=== PATIENT | female | born 1955 | race Caucasian/White ===

== ENCOUNTER → 2017-03-04 | Outpatient (CLI) | payer OTHER, MEDICARE ==
[~2017-03-04] MED LIST: ASPEC81 PO; ATEN50TA8 PO; ATOR-24 PO; B-COTAB18 PO; CLOP1TAB5 PO; ERGO1CAP35 PO; ERGO500011 PO; FOLI1TAB7 PO; HYDR-3983 PO; HYDR-4717 PO; LISI40TA PO; LORA-741 PO; LSX20 PO; MELATAB2 PO; NEBI20TA2 PO; PROM1SUP19 PR; PROM25TA9 PO; TIZA2CAP PO; TOPI50TA24 PO; VERA120C2 PEG; VERA120C2 PO; VERA120T65 PO; VERA240C2 PO; VERA240T21 PO
[2017-03-04 09:42] LABS: URINE APPEARANCE CLEAR (CLEAR); URINE BILIRUBIN NEG (NEG); URINE COLOR YELLOW; URINE NITRITE NEG (NEG); UROBILINOGEN NEG (NEG); ZZUR CULT IF INDIC CLEAN CATCH NO
[2017-03-04 09:43] LABS: MANUAL MICROSCOPIC REQUIRED? NO; REVIEW REQ? NO
== END | disposition home or self-care (01) ==
LOC: C.LAB 08:13
PROVIDERS: ATTEND Internal Medicine
DX: I10 Essential (primary) hypertension (principal); Z11.59 Encounter for screening for other viral diseases; E55.9 Vitamin D deficiency, unspecified

== ENCOUNTER → 2017-04-25 | Outpatient (CLI) | payer OTHER, MEDICARE ==
--- NOTE | 2017-04-25 13:55 | MAMMOGRAPHY REPORT ---
BILATERAL DIGITAL SCREENING MAMMOGRAM WITH CAD: 04/25/2017 CLINICAL HISTORY: Routine screening. TECHNIQUE: Current study was also evaluated with a Computer Aided Detection (CAD) system. Bilateral CC and MLO views were obtained. COMPARISON: Comparison is made to exams dated: 07/25/2015 mammogram, 10/05/2013 mammogram, 01/02/2011 m ammogram, 08/14/2005 mammogram, and 11/03/2003 mammogram - [facility]. BREAST COMPOSITION: There are scattered areas of fibroglandular density in both breasts. FINDINGS: No suspicious masses, calcifications, or areas of architectural distortion are noted in ei ther breast. There has been no significant interval change compared to prior exams. Bilateral benign -appearing calcifications are not significantly changed. Small benign appearing mass in the left 12: 00 breast is stable compared to prior exams. IMPRESSION: ACR BI-RADS CATEGORY 2: BENIGN There is no mammographic evidence of malignancy. A 1 year screening mammogram is recommended. The pa tient will receive written notification of the results. Approximately 10% of breast cancers are not detected with mammography. A negative mammographic report should not delay biopsy if a clinically suggestive mass is present. Moriah Burnham M.D. ah/:04/25/2017 11:02:09 Service Tester: Crow CANO(R)(M), [facility] letter sent: Normal 1/2 BI-RADS Code: ACR BI-RADS Category 2: Benign
== END | disposition home or self-care (01) ==
LOC: C.MAMM 09:21
PROVIDERS: ATTEND Obstetrics & Gynecology
DX: Z12.31 Encounter for screening mammogram for malignant neoplasm of breast (principal)

== ENCOUNTER → 2017-05-01 | Outpatient (CLI) | payer OTHER, MEDICARE ==
[~2017-05-01] MED LIST changes: +GADAVIST IV PRN
--- NOTE | 2017-05-01 09:55 | DIAGNOSTIC IMAGING REPORT ---
MRA ABDOMEN COMBO CLINICAL HISTORY: I65.23,I70.1,I77.1 renal artery stenosis. COMPARISON STUDY: No previous studies for comparison. FINDINGS: Imaging was performed before and after the administration of 8 cc of intravenous Gadavist. Angiographic sequence was obtained. MIP imaging was performed. There is a 19 mm upper pole left renal cyst. The right kidney is atrophic measuring 16 mm in length. The left kidney measures 106 mm in length. There is diminished right renal enhancement consistent with renal artery stenosis. There are advanced atheromatous changes present within the abdominal aorta. There is a 75% stenosis involving the proximal right common iliac artery. The right renal artery is not visualized, and is likely severely stenotic or occluded. There is a suspected occlusion of the superior mesenteric artery at its origin, with distal reconstitution. There are atheromatous changes present within the main left renal artery, but there is no evidence of hemodynamic significant stenosis. There is a suspected stenosis of accessory lower pole left renal artery branch. The degree of stenosis is difficult to quantitate. IMPRESSION: 1. Severe atheromatous changes within the abdominal aorta with multifocal areas of irregular narrowing and plaque formation 2. 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 Nonvisualization the right renal artery consistent with a severely stenotic or occluded vessel. The right kidney is atrophic with diminished enhancement 4. Atheromatous changes within the main left renal artery but no evidence of hemodynamic significant stenosis. Suspected stenosis of and accessory lower pole left renal artery branch 5. 75% stenosis of the right common iliac artery Electronically signed by: Dom Luther M.D. 05/01/2017 9:54 AM Dictated Date/Time: 05/01/2017 9:40 AM
== END | disposition home or self-care (01) ==
LOC: C.MRIBC 07:54
PROVIDERS: ATTEND Physician Assistant
DX: I65.23 Occlusion and stenosis of bilateral carotid arteries (principal); I70.1 Atherosclerosis of renal artery; I77.1 Stricture of artery

== ENCOUNTER → 2017-05-12 | Outpatient (CLI) | payer OTHER, MEDICARE ==
[~2017-05-12] MED LIST changes: -GADAVIST IV PRN
[2017-05-12 17:35] LABS: URINE APPEARANCE CLEAR (CLEAR); URINE BILIRUBIN NEG (NEG); URINE COLOR YELLOW; URINE NITRITE NEG (NEG); URINE SPECIFIC GRAVITY 1.008 (1.000-1.030); UROBILINOGEN NEG (NEG)
[2017-05-12 17:37] LABS: MANUAL MICROSCOPIC REQUIRED? NO; REVIEW REQ? NO
[2017-05-12 17:43] LABS: BLOOD UREA NITROGEN 13 mg/dl (7-18); BUN/CREATININE RATIO 10.8 (10-20); CALCIUM 9.1 mg/dl (8.5-10.1); CARBON DIOXIDE 18 mmol/L (21-32); CHLORIDE 110 mmol/L (98-107); GLUCOSE 102 mg/dl (70-99); PHOSPHORUS 3.8 mg/dl (2.5-4.9); POTASSIUM 3.7 mmol/L (3.5-5.1); SODIUM 139 mmol/L (136-145)
[2017-05-12 22:34] LABS: URINE PROTIEN/CREAT RATIO 1.6 (0-0.2); URINE TOTAL PROTEIN 32.3 mg/dl (0-11.9)
== END | disposition home or self-care (01) ==
LOC: C.LABBFT 11:43
PROVIDERS: ATTEND Nurse Practitioner
DX: I10 Essential (primary) hypertension (principal); I70.1 Atherosclerosis of renal artery

== ENCOUNTER → 2017-05-24 | Outpatient (CLI) | payer OTHER, MEDICARE ==
[~2017-05-24] MED LIST changes: +ERGO1CAP41 PO; -ERGO500011 PO
[2017-05-24 11:21] LABS: BLOOD UREA NITROGEN 11 mg/dl (7-18); BUN/CREATININE RATIO 7.6 (10-20); CALCIUM 9.3 mg/dl (8.5-10.1); CARBON DIOXIDE 24 mmol/L (21-32); CHLORIDE 90 mmol/L (98-107); GLUCOSE 99 mg/dl (70-99); POTASSIUM 3.5 mmol/L (3.5-5.1); SODIUM 123 mmol/L (136-145)
[2017-05-24 11:23] LABS: URINE PROTIEN/CREAT RATIO 0.6 (0-0.2); URINE TOTAL PROTEIN 12.1 mg/dl (0-11.9)
[2017-05-24 11:32] LABS: PHOSPHORUS 3.1 mg/dl (2.5-4.9); URINE APPEARANCE CLEAR (CLEAR); URINE BILIRUBIN NEG (NEG); URINE COLOR YELLOW; URINE NITRITE NEG (NEG); UROBILINOGEN NEG (NEG)
[2017-05-24 11:36] LABS: MANUAL MICROSCOPIC REQUIRED? NO; REVIEW REQ? NO
[2017-05-28 11:35] LABS: ALBUMIN 4.2 G/DL (3.8-4.8); ALBUMIN % 65.15 %; ALPHA-2-GLOBULIN % 9.94 %; CREATININE UR 27 MG/DL (20-320); GAMMA GLOBULIN 0.5 G/DL (0.8-1.7); GAMMA GLOBULIN % 4.52 %; TOTAL PROTEIN 6.7 G/DL (6.2-8.3)
== END | disposition home or self-care (01) ==
LOC: C.LABBC 08:23
PROVIDERS: ATTEND Internal Medicine Nephrology
DX: I10 Essential (primary) hypertension (principal)

== ENCOUNTER 2017-05-26 14:02 | Inpatient (IN) | payer OTHER, MEDICARE ==
[~2017-05-26] VITALS: Ht 160 cm; Wt 80.8 kg
[~2017-05-26 14:02] MED LIST changes: -ASPEC81 PO; -B-COTAB18 PO; -ERGO1CAP41 PO; -LSX20 PO; -NEBI20TA2 PO; -PROM1SUP19 PR; -VERA120C2 PEG; -VERA120C2 PO; -VERA240C2 PO
[2017-05-26] MEDS ORDERED: SODIUM CHLORIDE 0.9% 1000ML 1,000 ML IV STA (16:34)
--- NOTE | 2017-05-26 16:41 | EMERGENCY ROOM VISIT NOTE ---
History Report prepared by Nola: Barbara Santiago Under the Supervision of: Dr. Nathaniel Santiago D.O. First contact with patient: 16:31 Chief Complaint: HYPERTENSION Stated Complaint: SODIUM LEVEL LOW(123) HIGH BP History of Present Illness The patient is a 61 year old female who presents to the Emergency Room with complaints of constant illness beginning 2 days ago. The patient states that she has been feeling ill for the last week. She reports that she has no function of her right kidney and was taken off of Lisinopril but was recently put back on that and a water pill to control her hypertension. She notes that 2 days ago she had labs done and her sodium was found to be low. After not feeling any better, she went to see her PCP this afternoon and they referred her here to the ED for concern about her sodium. The patient complains of increased thirst, nausea, constant headaches, achiness, irritability, and chills. She denies any confusion and leg swelling. She notes that she has slowed down in drinking fluids after her doctor told her that she was drinking too much with her low sodium. Source of History: patient Onset: 2 days ago Position: other (global) Quality: other (illness) Timing: constant Associated Symptoms: + chills, + headache, + nausea Note: The patient complains of increased thirst, achiness, irritability. She denies any confusion and leg swelling. Review of Systems See HPI for pertinent positives & negatives. A total of 10 systems reviewed and were otherwise negative. Past Medical & Surgical Medical Problems: (1) Hypernatremia (2) Hypertension Family History No pertinent family history stated. Social History Smoking Status: Current Some Day Smoker Alcohol Use: occasionally Drug Use: none Marital Status: Occupation Status: employed Current/Historical Medications Scheduled Atorvastatin (Lipitor), 40 MG PO QPM B-Complex Vitamins (Vitamin B Complex), 1 TAB PO DAILY Clopidogrel Bisulfate (Plavix), 75 MG PO QAM Ergocalciferol (Vitamin D 89969 Unit), 50,000 INTER.UNIT PO WK Folic Acid (Folvite), 1 MG PO QPM Hydralazine Hcl (Apresoline), 100 MG PO QID Lisinopril (Zestril), 40 MG PO QAM Nebivolol Hcl (Bystolic), 40 MG PO DAILY Topiramate (Topamax), 50 MG PO BID Verapamil Hcl (Verapamil Hcl Er), 240 MG PO QAM Verapamil Hcl (Verapamil Hcl Er), 120 MG PEG HS Scheduled PRN Hydrocodone/Acetaminophen 7.5MG/325MG ([place] 7.5MG/325MG), 1 TAB PO BID PRN for Pain Lorazepam (Ativan), 0.5 MG PO BID PRN for Anxiety Tizanidine (Zanaflex), 2 MG PO TID PRN for Muscle Relaxer Allergies Coded Allergies: Bupropion (Verified Allergy, Unknown, UNKNOWN, 09/20/16) Carbamazepine (Unverified Allergy, Unknown, UNKNOWN, 09/20/16) Codeine (Verified Allergy, Unknown, "TIGHTENS MUSCLES UP" PER PT, 09/20/16) Penicillins (Verified Allergy, Unknown, AMPICILLIN, 09/20/16) Sertraline (Unverified Allergy, Unknown, UNKNOWN, 09/20/16) Sulfa Antibiotics (Unverified Allergy, Unknown, HIVES, 09/23/16) Tetracycline (Verified Allergy, Unknown, 09/20/16) Venlafaxine (Unverified Allergy, Unknown, UNKNOWN, 09/20/16) Pork (Verified Adverse Reaction, Intermediate, VOMIT, 09/20/16) Chocolate (Verified Adverse Reaction, Mild, MIGRAINES, 09/20/16) [place] (Verified Adverse Reaction, Unknown, VIOLENT EMESIS, 09/20/16) Physical Exam Vital Signs Date Time Temp Pulse Resp B/P (MAP) Pulse Ox O2 Delivery O2 Flow Rate FiO2 05/26/17 17:52 78 16 225/79 98 Room Air 05/26/17 17:45 49 05/26/17 14:26 36.6 50 18 161/59 94 Room Air Physical Exam GENERAL: Patient is awake, alert, and in no acute distress. Patient is resting comfortably and showing no signs of anxiety EYES: The conjunctivae are clear. The pupils are round and reactive. EARS, NOSE, MOUTH AND THROAT: The nose is without any evidence of any deformity. Mucous membranes are dry tongue is midline NECK: The neck is nontender and supple. RESPIRATORY: Normal respiratory effort is noted there is no evidence of wheezing rhonchi or rales CARDIOVASCULAR: Regular rate and rhythm noted there no murmurs rubs or gallops normal S1 normal S2 GASTROINTESTINAL: The abdomen is soft. Bowel sounds are present in all quadrants. Abdomen is nontender MUSCULOSKELETAL/EXTREMITIES: There is no evidence of gross deformity full range of motion is noted in the hips and shoulders SKIN: There is no obvious evidence of any rash. There are no petechiae, pallor or cyanosis noted. NEUROLOGIC: Patient is awake alert and oriented x3 strength is symmetric patellar reflexes are 2+ bilaterally Medical Decision & Procedures ER Provider Diagnostic Interpretation: Radiology results as stated below per my review and radiologist interpretation: CHEST ONE VIEW PORTABLE FINDINGS: The heart is borderline enlarged. There is mild hilar prominence, likely secondary to prominent central pulmonary arteries. Pulmonary arterial hypertension must be considered.[ There is no failure. There is no focal pulmonary consolidation. No pleural effusions are visualized. IMPRESSION: AP portable study. No evidence of failure. No evidence of focal pulmonary consolidation. Prominent hilar/central pulmonary arteries. Electronically signed by: Dom Luther M.D. 05/26/2017 4:46 PM Dictated Date/Time: 05/26/2017 4:[address] SCAN OF THE BRAIN WITHOUT IV CONTRAST FINDINGS: Brain parenchyma: There is minimal subcortical and periventricular microangiopathic change. The brain parenchyma is otherwise normal in appearance. There is no hemorrhage, mass effect, or evidence of acute territorial ischemia by CT criteria. Humphries-white matter is preserved. No extra-axial fluid collection is seen. Ventricles, sulci, cisterns: Normal in configuration. Intracranial vasculature: There is atherosclerotic calcification of the cavernous carotid and vertebral arteries. Calvarium: Unremarkable. Sinuses and mastoids: The visualized paranasal sinuses are clear. The mastoid air cells are well pneumatized. Orbits: The bony orbits are grossly intact. IMPRESSION: There is no hemorrhage, mass effect, or evidence of acute territorial ischemia by CT criteria. Electronically signed by: Cristi Rojas M.D. 05/26/2017 5:29 PM Dictated Date/Time: 05/26/2017 5:27 PM Laboratory Results 05/26/17 17:08 Red Blood Count 5.08, Mean Corpuscular Volume 87.8, Mean Corpuscular Hemoglobin 30.9, Mean Corpuscular Hemoglobin Concent 35.2, Mean Platelet Volume 10.1, Neutrophils (%) (Auto) 55.3, Lymphocytes (%) (Auto) 30.6, Monocytes (%) (Auto) 11.7, Eosinophils (%) (Auto) 1.6, Basophils (%) (Auto) 0.3, Neutrophils # (Auto ) 3.42, Lymphocytes # (Auto) 1.89, Monocytes # (Auto) 0.72, Eosinophils # (Auto ) 0.10, Basophils # (Auto) 0.02 05/26/17 17:08 Test 05/26/17 00:00 05/26/17 17:08 Urine Color YELLOW Urine Appearance CLEAR (CLEAR) Urine pH 7.0 (4.5-7.5) Urine Specific [place] 1.007 (1.000-1.030) Urine Protein NEG (NEG) Urine Glucose (UA) NEG (NEG) Urine Ketones NEG (NEG) Urine Occult Blood NEG (NEG) Urine Nitrite NEG (NEG) Urine Bilirubin NEG (NEG) Urine Urobilinogen NEG (NEG) Urine Leukocyte Esterase NEG (NEG) Urine Osmolality 84 mOms/kg (500-800) Urine Random Sodium 13 mEq/L White Blood Count 6.18 K/uL (4.8-10.8) Red Blood Count 5.08 M/uL (4.2-5.4) Hemoglobin 15.7 g/dL (12.0-16.0) Hematocrit 44.6 % (37-47) Mean Corpuscular Volume 87.8 fL (80-100) Mean Corpuscular Hemoglobin 30.9 pg (25-34) Mean Corpuscular Hemoglobin Concent 35.2 g/dl (32-36) Platelet Count 267 K/uL (130-400) Mean Platelet Volume 10.1 fL (7.4-10.4) Neutrophils (%) (Auto) 55.3 % Lymphocytes (%) (Auto) 30.6 % Monocytes (%) (Auto) 11.7 % Eosinophils (%) (Auto) 1.6 % Basophils (%) (Auto) 0.3 % Neutrophils # (Auto) 3.42 K/uL (1.4-6.5) Lymphocytes # (Auto) 1.89 K/uL (1.2-3.4) Monocytes # (Auto) 0.72 K/uL (0.11-0.59) Eosinophils # (Auto) 0.10 K/uL (0-0.5) Basophils # (Auto) 0.02 K/uL (0-0.2) RDW Standard Deviation 42.8 fL (36.4-46.3) RDW Coefficient of Variation 13.3 % (11.5-14.5) Immature Granulocyte % (Auto) 0.5 % Immature Granulocyte # (Auto) 0.03 K/uL (0.00-0.02) Prothrombin Time 9.9 SECONDS (9.0-12.0) Prothromb Time International Ratio 0.9 (0.9-1.1) Activated Partial Thromboplast Time 34.7 SECONDS (21.0-31.0) Partial Thromboplastin Ratio 1.3 Anion Gap 10.0 mmol/L (3-11) Est Creatinine Clear Calc Drug Dose 49.8 ml/min Estimated GFR () 56.5 Estimated GFR (Non- 48.7 BUN/Creatinine Ratio 10.3 (10-20) Osmolality 263 mOsm/kg (280-300) Calcium Level 9.0 mg/dl (8.5-10.1) Total Bilirubin 0.3 mg/dl (0.2-1) Direct Bilirubin 0.1 mg/dl (0-0.2) Aspartate Amino Transf (AST/SGOT) 14 U/L (15-37) Alanine Aminotransferase (ALT/SGPT) 26 U/L (12-78) Alkaline Phosphatase 77 U/L (45-117) Total Creatine Kinase 98 U/L (26-192) Creatine Kinase MB 1.0 ng/ml (0.5-3.6) Creatine Kinase MB Ratio 1.0 (0-3.0) Total Protein 6.9 gm/dl (6.4-8.2) Albumin 3.9 gm/dl (3.4-5.0) Lipase 566 U/L (73-393) Laboratory results per my review. Medications Administered Medications (Trade) Dose Ordered Sig/Nimo Route Start Time Stop Time Status Last Admin Dose Admin Sodium Chloride 1,000 ml @ 999 mls/hr Q1H1M STAT IV 05/26/17 16:34 05/26/17 17:34 DC 05/26/17 16:34 999 MLS/HR Ondansetron HCl (Zofran Inj) 4 mg Q6H PRN IV 05/26/17 19:15 06/25/17 19:14 05/26/17 22:26 4 MG Acetaminophen/ Hydrocodone Bitart ([place] 7.5/325 Tab) 1 tab BID PRN PO 05/26/17 19:15 06/09/17 19:14 05/26/17 22:26 1 TAB ECG Indication: other (illness) Rate (beats per minute): 47 Rhythm: sinus bradycardia Findings: no ectopy, other (no ST segment abnormalities) Comparison ECG Date: 07/19/2012 Change: no significant change ED Course 1631: The patient was evaluated in room C3. A complete history and physical examination were performed. 1634: NSS 1,000 ml @ 999 mls/hr IV. 182: I spoke to Dr. Martinez about the patient's case. 183: I discussed the patient's case with Dr. Kwong. The patient will be evaluated for further management. 1847: Upon reevaluation, the patient is doing well. I discussed results and treatment plan with the patient. She verbalizes agreement and understanding. I spoke with [place]. Kwong [place] [facility] The patient will be evaluated for further management and care. Medical Decision Differential diagnosis: Etiologies such as metabolic, infection, hypo/hyperglycemia, electrolyte abnormalities, cardiac sources, intracerebral event, toxicologic, neurologic, as well as others were entertained. Medication Reconciliation: I attest that I have personally reviewed the patient' s current medications list. Blood pressure screening: Patient was found to have an elevated blood pressure and was referred to their primary doctor for recheck and further treatment. The patient is a 61-year-old female who presented to emergency department for evaluation after abnormal laboratory studies were found. The patient is a history of probably see initially which led to hyponatremia. She tried to manage this with medications as well as fluid restriction but on subsequent reevaluation was found have continued hyponatremia as well as hypertension. The patient was sent to the emergency department for further evaluation. The patient was treated with IV fluids in the emergency department. I discussed her case with her primary covering inventory controller. I also discussed her case with the on-call [facility] hospitalist. They've agreed to evaluate the patient in emergency department for further management and disposition. I discussed the patient's laboratory and radiographic studies with her. Consults Time Called: 1824 Consulting Physician: Dr. Martinez Returned Call: [phone] Martinez about the patient's case. Additional Consults: Time Called: 1829 Consulted Physician: Dr. Kwong Returned Call: [phone] Additional Comments: I discussed the patient's case with Dr. Kwong. The patient will be evaluated for further management. Impression Primary Impression: Hyponatremia Additional Impressions: Hypertension Nausea Headache Scribe Attestation The scribe's documentation has been prepared under my direction and personally reviewed by me in its entirety. I confirm that the note above accurately reflects all work, treatment, procedures, and medical decision making performed by me. Departure Information Dispostion Being Evaluated By Hospitalist Referrals Cortes Espinosa M.D. (PCP) Patient Instructions [facility] Problem Qualifiers Additional Impressions: Hypertension Hypertension type: unspecified Qualified Codes: I10 - Essential (primary) hypertension Headache Headache type: unspecified Headache chronicity pattern: acute headache Intractability: not intractable Qualified Codes: R51 - Headache
--- NOTE | 2017-05-26 16:48 | DIAGNOSTIC IMAGING REPORT ---
CHEST ONE VIEW PORTABLE CLINICAL HISTORY: Hypertension COMPARISON STUDY: 10/20/2012 FINDINGS: The heart is borderline enlarged. There is mild hilar prominence, likely secondary to prominent central pulmonary arteries. Pulmonary arterial hypertension must be considered.[ There is no failure. There is no focal pulmonary consolidation. No pleural effusions are visualized. IMPRESSION: AP portable study. No evidence of failure. No evidence of focal pulmonary consolidation. Prominent hilar/central pulmonary arteries. Electronically signed by: Dom Luther M.D. 05/26/2017 4:46 PM Dictated Date/Time: 05/26/2017 4:45 PM
[2017-05-26 17:31] LABS: BASO % 0.3 %; BASO ABS # 0.02 K/uL (0-0.2); COMPLETE YES; EOS % 1.6 %; HEMATOCRIT 44.6 % (37-47); IG% 0.5 %; LYMPH % 30.6 %; LYMPH ABS # 1.89 K/uL (1.2-3.4); MEAN CELL VOLUME 87.8 fL (80-100); MEAN CORPUSCULAR HEMOGLOBIN 30.9 pg (25-34); MEAN CORPUSCULAR HGB CONC 35.2 g/dl (32-36); MEAN PLATELET VOLUME 10.1 fL (7.4-10.4); MONO % 11.7 %; NEUT % 55.3 %; PLATELET COUNT 267 K/uL (130-400); RED BLOOD COUNT 5.08 M/uL (4.2-5.4); WHITE BLOOD COUNT 6.18 K/uL (4.8-10.8)
--- NOTE | 2017-05-26 17:31 | DIAGNOSTIC IMAGING REPORT ---
CT SCAN OF THE BRAIN WITHOUT IV CONTRAST CLINICAL HISTORY: Headache. COMPARISON STUDY: CT the brain dated 06/08/2012. TECHNIQUE: Unenhanced axial CT scan of the brain is performed from the vertex to the skull base. Automated dose control exposure was utilized. CT DOSE: 537.48 mGy.cm FINDINGS: Brain parenchyma: There is minimal subcortical and periventricular microangiopathic change. The brain parenchyma is otherwise normal in appearance. There is no hemorrhage, mass effect, or evidence of acute territorial ischemia by CT criteria. Humphries-white matter is preserved. No extra-axial fluid collection is seen. Ventricles, sulci, cisterns: Normal in configuration. Intracranial vasculature: There is atherosclerotic calcification of the cavernous carotid and vertebral arteries. Calvarium: Unremarkable. Sinuses and mastoids: The visualized paranasal sinuses are clear. The mastoid air cells are well pneumatized. Orbits: The bony orbits are grossly intact. IMPRESSION: There is no hemorrhage, mass effect, or evidence of acute territorial ischemia by CT criteria. Electronically signed by: Cristi Rojas M.D. 05/26/2017 5:29 PM Dictated Date/Time: 05/26/2017 5:27 PM
[2017-05-26] MEDS ORDERED: ERGO1CAP41 PO (17:35)
[2017-05-26] MEDS ORDERED: VERA240C2 PO (17:35)
[2017-05-26] MEDS ORDERED: VERA120C2 PEG (17:35)
[2017-05-26] MEDS ORDERED: NEBI20TA2 PO (17:35)
[2017-05-26] MEDS ORDERED: B-COTAB18 PO (17:35)
[2017-05-26 17:42] LABS: INR 0.9 (0.9-1.1); PARTIAL THROMBOPLASTIN RATIO 1.3; PROTHROMBIN TIME (PATIENT) 9.9 SECONDS (9.0-12.0)
[2017-05-26 17:59] LABS: ALT/SGPT 26 U/L (12-78); AST/SGOT 14 U/L (15-37); BLOOD UREA NITROGEN 12 mg/dl (7-18); BUN/CREATININE RATIO 10.3 (10-20); CARBON DIOXIDE 24 mmol/L (21-32); CHLORIDE 96 mmol/L (98-107); GLUCOSE 91 mg/dl (70-99); POTASSIUM 3.6 mmol/L (3.5-5.1); SODIUM 130 mmol/L (136-145)
[2017-05-26 18:05] LABS: ALKALINE PHOSPHATASE 77 U/L (45-117)
[2017-05-26] MEDS ORDERED: MAGNESIUM HYDROXIDE SUSP 30 ML UDC PO PRN (19:15)
[2017-05-26] MEDS ORDERED: LORAZEPAM 0.5 MG TAB PO PRN (19:15)
[2017-05-26] MEDS ORDERED: HYDROCODONE/ACETAMINOPHEN 7.5/325MG TAB PO PRN (19:15)
--- NOTE | 2017-05-26 19:32 | History and Physical ---
History & Physical Date & Time of Service: May 26, 2017 at 19:20 Chief Complaint: Sodium Level Low(123) High Bp Primary Care Physician: Cortes Espinosa M.D. History of Present Illness Source: patient Ms. Interiano is a 61 y/o female with PMHx of Secondary HTN due to R Renal Artery Stenosis S/P Stent, R Atrophic Kidney, CKD Stage III, Carotid Stenosis, Migraine HAs, and Bipolar I Disorder who presents to the ED for hyponatremia x 2 days. Patient has had a long history of resistant HTN and follows with Dr. Herrera. She had a renal artery stent place a couple years ago but reports that in the past 6 months she was told her R kidney no longer functions. It is not uncommon for her BP to be 180-200 systolically but reports a normal diastolic normally. She is on a multiple-drug regimen including Hydralazine 100 mg QID, Lisinopril 40 mg daily (restarted on May 15), Bystolic 40 mg daily, and Verapamil 240 mg AM and 120 mg HS (for migraines as well). She was then started on Chlorathalidone on May 15. She reports it helped slightly with her BP but she felt sick on this medication and presented to her PCP on May 24. She reported dry mouth and polydipsia and states she was drinking a lot of water. Outpatient Na revealed hyponatremia at 123 and was advised to decrease her fluid intake with repeat Na today of 127 with repeat in ED of 130. Current symptoms include generalized weakness, polydipsia, nausea without vomiting, constant headache, generalized pain "muscle tightness", increased irritability and chills (started in ED). She reports, even with improving Na levels, she had no improvement in symptoms but symptoms have not worsened. In the ED, patient Na noted at 130. Creatinine 1.2. Hypertensive ranging from 161-225 systolically with normal diastolic. She was hydrated with NSS x 1 L. She will be admitted to telemetry for hyponatremia and HTN. Past Medical/Surgical History Medical Problems: (1) Hypertension Status: Chronic Family History Diabetes mellitus Social History Smoking Status: Current Some Day Smoker Drug Use: none Marital Status: Occupational Status: employed Immunizations History of Influenza Vaccine: No History of Tetanus Vaccine?: UTD History of Pneumococcal: No History of Hepatitis B Vaccine: No Multi-Drug Resistant Organisms History of MDRO: No Allergies Coded Allergies: Bupropion (Verified Allergy, Unknown, UNKNOWN, 09/20/16) Carbamazepine (Unverified Allergy, Unknown, UNKNOWN, 09/20/16) Codeine (Verified Allergy, Unknown, "TIGHTENS MUSCLES UP" PER PT, 09/20/16) Penicillins (Verified Allergy, Unknown, AMPICILLIN, 09/20/16) Sertraline (Unverified Allergy, Unknown, UNKNOWN, 09/20/16) Sulfa Antibiotics (Unverified Allergy, Unknown, HIVES, 09/23/16) Tetracycline (Verified Allergy, Unknown, 09/20/16) Venlafaxine (Unverified Allergy, Unknown, UNKNOWN, 09/20/16) Pork (Verified Adverse Reaction, Intermediate, VOMIT, 09/20/16) Chocolate (Verified Adverse Reaction, Mild, MIGRAINES, 09/20/16) [place] (Verified Adverse Reaction, Unknown, VIOLENT EMESIS, 09/20/16) Home Medications Scheduled Atorvastatin (Lipitor), 40 MG PO QPM B-Complex Vitamins (Vitamin B Complex), 1 TAB PO DAILY Clopidogrel Bisulfate (Plavix), 75 MG PO QAM Ergocalciferol (Vitamin D 13926 Unit), 50,000 INTER.UNIT PO WK Folic Acid (Folvite), 1 MG PO QPM Hydralazine Hcl (Apresoline), 100 MG PO QID Lisinopril (Zestril), 40 MG PO QAM Nebivolol Hcl (Bystolic), 40 MG PO DAILY Topiramate (Topamax), 50 MG PO BID Verapamil Hcl (Verapamil Hcl Er), 240 MG PO QAM Verapamil Hcl (Verapamil Hcl Er), 120 MG PEG HS Scheduled PRN Hydrocodone/Acetaminophen 7.5MG/325MG ([place] 7.5MG/325MG), 1 TAB PO BID PRN for Pain Lorazepam (Ativan), 0.5 MG PO BID PRN for Anxiety Tizanidine (Zanaflex), 2 MG PO TID PRN for Muscle Relaxer Review of Systems Constitutional: + chills, + weakness (generalized), + fatigue, No fever Eyes: No worsening of vision, No diplopia ENT: No nasal symptoms, No sore throat, No trouble swallowing Respiratory: No shortness of breath Cardiovascular: No chest pain, No palpitations Abdomen: + nausea, + diarrhea (chronic - intermittent - not worsened), No pain , No vomiting, No constipation, No GI bleeding Musculoskeletal: No swelling, No calf pain Genitourinary - Female: No dysuria Psychiatric: + problem reported (increased irritability) Endocrine: + fatigue, + excessive thirst Hematologic / Lymphatic: No abnormal bleeding/bruising, No clotting problems Integumentary: No rash Physical Exam Vital Signs Date Time Temp Pulse Resp B/P (MAP) Pulse Ox O2 Delivery O2 Flow Rate FiO2 05/26/17 17:52 78 16 225/79 98 Room Air 05/26/17 17:45 49 05/26/17 14:26 36.6 50 18 161/59 94 Room Air General Appearance: WD/WN, no apparent distress, + obese Head: normocephalic, atraumatic Eyes: sclerae normal ENT: hearing grossly normal Neck: supple, no JVD, trachea midline Respiratory/Chest: lungs clear, normal breath sounds, no respiratory distress, no accessory muscle use Cardiovascular: regular rate, rhythm, no gallop, + systolic murmur Abdomen/GI: normal bowel sounds, non tender, soft Extremities/Musculoskelatal: no calf tenderness, no pedal edema Neurologic/Psych: alert, oriented x 3 Skin: normal color, warm/dry Diagnostics Laboratory Results Results Past 24 Hours Test 05/26/17 17:08 Range/Units White Blood Count 6.18 4.8-10.8 K/uL Red Blood Count 5.08 4.2-5.4 M/uL Hemoglobin 15.7 12.0-16.0 g/dL Hematocrit 44.6 37-47 % Mean Corpuscular Volume 87.8 80-100 fL Mean Corpuscular Hemoglobin 30.9 25-34 pg Mean Corpuscular Hemoglobin Concent 35.2 32-36 g/dl Platelet Count 267 130-400 K/uL Mean Platelet Volume 10.1 7.4-10.4 fL Neutrophils (%) (Auto) 55.3 % Lymphocytes (%) (Auto) 30.6 % Monocytes (%) (Auto) 11.7 % Eosinophils (%) (Auto) 1.6 % Basophils (%) (Auto) 0.3 % Neutrophils # (Auto) 3.42 1.4-6.5 K/uL Lymphocytes # (Auto) 1.89 1.2-3.4 K/uL Monocytes # (Auto) 0.72 0.11-0.59 K/uL Eosinophils # (Auto) 0.10 0-0.5 K/uL Basophils # (Auto) 0.02 0-0.2 K/uL RDW Standard Deviation 42.8 36.4-46.3 fL RDW Coefficient of Variation 13.3 11.5-14.5 % Immature Granulocyte % (Auto) 0.5 % Immature Granulocyte # (Auto) 0.03 0.00-0.02 K/uL Prothrombin Time 9.9 9.0-12.0 SECONDS Prothromb Time International Ratio 0.9 0.9-1.1 Activated Partial Thromboplast Time 34.7 21.0-31.0 SECONDS Partial Thromboplastin Ratio 1.3 Sodium Level 130 136-145 mmol/L Potassium Level 3.6 3.5-5.1 mmol/L Chloride Level 96 98-107 mmol/L Carbon Dioxide Level 24 21-32 mmol/L Anion Gap 10.0 3-11 mmol/L Blood Urea Nitrogen 12 7-18 mg/dl Creatinine 1.20 0.60-1.20 mg/dl Est Creatinine Clear Calc Drug Dose 49.8 ml/min Estimated GFR () 56.5 Estimated GFR (Non- 48.7 BUN/Creatinine Ratio 10.3 10-20 Random Glucose 91 70-99 mg/dl Osmolality 263 280-300 mOsm/kg Calcium Level 9.0 8.5-10.1 mg/dl Total Bilirubin 0.3 0.2-1 mg/dl Direct Bilirubin 0.1 0-0.2 mg/dl Aspartate Amino Transf (AST/SGOT) 14 15-37 U/L Alanine Aminotransferase (ALT/SGPT) 26 12-78 U/L Alkaline Phosphatase 77 45-117 U/L Total Creatine Kinase 98 26-192 U/L Creatine Kinase MB 1.0 0.5-3.6 ng/ml Creatine Kinase MB Ratio 1.0 0-3.0 Troponin I < 0.015 0-0.045 ng/ml Total Protein 6.9 6.4-8.2 gm/dl Albumin 3.9 3.4-5.0 gm/dl Lipase 566 73-393 U/L Diagnostic Radiology CT SCAN OF THE BRAIN WITHOUT IV CONTRAST FINDINGS: Brain parenchyma: There is minimal subcortical and periventricular microangiopathic change. The brain parenchyma is otherwise normal in appearance. There is no hemorrhage, mass effect, or evidence of acute territorial ischemia by CT criteria. Humphries-white matter is preserved. No extra-axial fluid collection is seen. Ventricles, sulci, cisterns: Normal in configuration. Intracranial vasculature: There is atherosclerotic calcification of the cavernous carotid and vertebral arteries. Calvarium: Unremarkable. Sinuses and mastoids: The visualized paranasal sinuses are clear. The mastoid air cells are well pneumatized. Orbits: The bony orbits are grossly intact. IMPRESSION: There is no hemorrhage, mass effect, or evidence of acute territorial ischemia by CT criteria. CHEST ONE VIEW PORTABLE FINDINGS: The heart is borderline enlarged. There is mild hilar prominence, likely secondary to prominent central pulmonary arteries. Pulmonary arterial hypertension must be considered.[ There is no failure. There is no focal pulmonary consolidation. No pleural effusions are visualized. IMPRESSION: AP portable study. No evidence of failure. No evidence of focal pulmonary consolidation. Prominent hilar/central pulmonary arteries. EKG Sinus bradycardia Otherwise normal ECG When compared with ECG of 20-OCT-2012 17:49, No significant change was found Confirmed by NBA HAQUE MD ([id number]) on 05/26/2017 5:44:34 PM Impression Assessment and Plan Ms. Interiano is a 61 y/o female with PMHx of Secondary HTN due to R Renal Artery Stenosis S/P Stent, R Atrophic Kidney, CKD Stage III, Carotid Stenosis, Migraine HAs, and Bipolar I Disorder who presents to the ED for hyponatremia x 2 days. Hyponatremia: Suspect Dilutional - Fluid status hard to appreciate due to body habitus but appears euvolemic. No JVD and no pulmonary congestion on CXR. Does not appear dehydrated. Was recently started on Chlorthalidone on May 15 only taking for a couple days and D/Cing. She reports polydipsia and taking in large amounts of fluids. She was advised to decrease fluid intake and Na improved from 123 (May 24) to 127 ( May 26) with repeat in ED of 130. - Was given NSS 1 L in ED but will implement fluid restriction on 1200 mL - Serum Osm low - awaiting UA for random urine Na and urine osm for further evaluation - Consult nephrology - appreciate recommendations with Na and resistent secondary HTN Secondary HTN 2/2 R Renal Artery Stenosis S/P Stent: UNCONTROLLED - Hydralazine 100 mg QID, Lisinopril 40 mg daily, and Bystolic 40 mg daily Elevated Lipase: - Likely reactive and will repeat in AM HLD and Carotid Stenosis (R>L): - Atorvastatin 40 mg daily - Plavix 75 mg daily CKD Stage III: Baseline Cr 1.0-1.2 - Currently baseline - had mild increase to 1.4 on outpatient labs but was restarted on Lisinopril at that time Bipolar Type I and Migraine RIVAS: - Ativan 0.5 mg BID PRN, Zanaflex 2 mg TID PRN, Topiramate 50 mg BID, and Verapamil 240 mg AM and 120 mg PM DVT Prophylaxis: SCDs Code Status: FULL RESUSCITATION Disposition: No home needs anticipated Level of Care Telemetry Resuscitation Status FULL RESUSCITATION VTE Prophylaxis VTE Risk Assessment Done? Y/N: Yes Risk Level: Low Given or contraindicated: T.E.DAdalberto Stockings, SCD's Reviewed: Pt Seen/Exam by Me History Pt states she still has a headache and is still a bit nauseated. She denies any hx of abd pain at any time. She feels the nausea is related to her h/a. She states she has hx of migraines and thought this was a migraine, however when it persisted she decided it might be otherwise. All of her sx started after she started taking chlorthalidone recently. She states she has chest pain , but she feels it is related to a general feeling of whole body muscle tightness. She has muscular pain from head to toe essentially. She states she has been incredibly thirsty recently and didn't realize a person could drink too much water. This has improved with the improvement in her sodium levels. No SOB or emesis. Agree with HPI/ROS as noted. Pt states she smokes on occasional for "calming my nerves". She does not smoke daily. General Appearance: WD/WN, no apparent distress Respiratory: normal breath sounds, no respiratory distress Cardiovascular: regular rate, rhythm, no edema Gastrointestinal: non tender, soft Extremities: non-tender, no pedal edema Neurologic/Psychiatric: alert, normal mood/affect, oriented x 3 Skin Characteristics: normal color, warm/dry Assessment/Plan Agree with plan as outlined above HypoNa: seems related to chlorthalidone use and was improving with fluid restriction and d/c of medication, however pt still sx and with elevated BP Fluid restriction, monitor Has been working with Dr. Herrera for this, c/s placed Chest pain: c/w MSK pains, will keep on home pain meds for now Trop neg, serials pending Given elevated BP and chest pain, will place on tele monitor for now Headache: likely related to elevated BP, monitor Elevated lipase: pt with hx of nausea, but no abd pain per report or exam Can monitor but will hold on tx for pancreatitis for now Declines need for nicotine patch
[2017-05-26 20:22] LABS: URINE APPEARANCE CLEAR (CLEAR); URINE BILIRUBIN NEG (NEG); URINE COLOR YELLOW; URINE NITRITE NEG (NEG); URINE SPECIFIC GRAVITY 1.007 (1.000-1.030); UROBILINOGEN NEG (NEG)
[2017-05-26 20:28] LABS: MANUAL MICROSCOPIC REQUIRED? NO; REVIEW REQ? NO
[2017-05-26 22:06] VITALS: BP 195/68; PULSE 52; TEMP 36.4; O2SAT 97; Ht 160 cm; Wt 80.8 kg
[2017-05-26] MEDS: ATORVASTATIN 40 MG TAB PO SCH (22:25)
[2017-05-26] MEDS: TOPIRAMATE 25 MG TAB PO SCH (22:26)
[2017-05-26] MEDS: ONDANSETRON INJ 2 MG/ML 2 ML VIAL IV PRN (22:26)
[2017-05-26] MEDS: VERAPAMIL HCL 120 MG TABCR PO SCH (22:26)
[2017-05-26 23:31] VITALS: BP 118/63; PULSE 55; TEMP 36.5; O2SAT 97
[2017-05-27] VITALS (7 sets, daily range): BP systolic 139–178; BP diastolic 51–79; PULSE 46–79; TEMP 36.4–37; O2SAT 94–98
[2017-05-27] MEDS: ONDANSETRON INJ 2 MG/ML 2 ML VIAL IV PRN (05:38)
[2017-05-27] MEDS ORDERED: PROMETHAZINE HCL INJ 12.5 MG in SODIUM CHLORIDE 0.9% 50ML 50 ML IV STA (06:28)
[2017-05-27] MEDS ORDERED: NURSING VERBAL MED ORDER ONE (06:30)
[2017-05-27] MEDS: ACETAMINOPHEN 325 MG TAB PO PRN ×2 (07:47→21:15)
[2017-05-27 08:00] LABS: BLOOD UREA NITROGEN 14 mg/dl (7-18); BUN/CREATININE RATIO 10.9 (10-20); CALCIUM 8.4 mg/dl (8.5-10.1); CARBON DIOXIDE 22 mmol/L (21-32); CHLORIDE 106 mmol/L (98-107); GLUCOSE 119 mg/dl (70-99); POTASSIUM 3.6 mmol/L (3.5-5.1); SODIUM 135 mmol/L (136-145)
[2017-05-27 08:40] LABS: ESTIMATED AVERAGE GLUCOSE 100 mg/dl; HA1C FLAG Normal (Normal)
[2017-05-27] MEDS: CLOPIDOGREL BISULFATE 75 MG TAB PO SCH (08:59)
[2017-05-27] MEDS ORDERED: VERAPAMIL HCL 240 MG TABCR PO SCH (09:00)
[2017-05-27] MEDS: TOPIRAMATE 25 MG TAB PO SCH ×2 (09:00→21:16)
[2017-05-27] MEDS: LISINOPRIL 40 MG TAB PO SCH (09:01)
[2017-05-27] MEDS: VITAMIN B COMPLEX TAB PO SCH (09:01)
[2017-05-27] MEDS: NEBIVOLOL HCL 5 MG TAB PO SCH (09:03)
--- NOTE | 2017-05-27 12:25 | Nephrology Consultation ---
Nephrology Consultation Date & Providers Date of Consultation: May 27, 2017. Primary Care Provider: Cortes Espinosa M.D. Referring Provider: Reason for Consultation Evaluation of hypertension History of Present Illness Mrs. Interiano was seen & examined at the request of Dr. Li for evaluation of hypertension. Medical records in the hospital and office EMR were reviewed today and are summarized as follows: Mrs. Interiano has bipolar disorder, ongoing tobacco use, multiple drug intolerances and a longstanding history of HTN. Previously her blood pressure had been controlled w/ Atenolol, Verapamil, Lisinopril and Hydralazine. In 05/03 she experienced accelerated HTN and required titration of her medications. Her SBP was ranging 170 - 220 mmHg. Vascular surgery evaluation was performed. 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 The right kidney was atrophic measuring only a few centimeters. The left renal artery had atherosclerotic plaque disease but no hemodynamically significant stenosis. There is an accessory artery to the lower pole which was difficult to visualize. Mrs. Interiano was then taken off Lisinopril and referred to Nephrology for evaluation. Serum creatinine has been 1.5. Urine sediment is benign. UPCR was 1.5. SIEP, cortisol level, 24 hour urine collection and serum aldosterone were ordered and are currently pending. Patient was started back on Lisinopril. Chlorthalidone 25 mg 1/2 tablet daily was started. Mrs. Interiano reports that she tolerated the Chlorthalidone poorly. She developed recurrent nausea & emesis. She was seen by her PCP and found to have serum sodium 125 mmol/l and admitted to the hospital for further evaluation. Serum sodium has corrected off thiazide diuretic. Blood pressure remains elevated and Nephrology consultation has been requested to provide recommendations on patient's antihypertensive regimen Past Medical/Surgical History Medical: # Stage III CKD w/ baseline Cr 1.5 (EGFR 51 cc/min). Right kidney is atrophic and nonfunctional # HTN # Diffuse atherosclerotic vascular disease (Atrophic R kidney, R carotid stenosis) # Ongoing tobacco use # Bipolar disorder Surgical: # Appendectomy Allergies Coded Allergies: Bupropion (Verified Allergy, Unknown, UNKNOWN, 09/20/16) Carbamazepine (Unverified Allergy, Unknown, UNKNOWN, 09/20/16) Codeine (Verified Allergy, Unknown, "TIGHTENS MUSCLES UP" PER PT, 09/20/16) Penicillins (Verified Allergy, Unknown, AMPICILLIN, 09/20/16) Sertraline (Unverified Allergy, Unknown, UNKNOWN, 09/20/16) Sulfa Antibiotics (Unverified Allergy, Unknown, HIVES, 09/23/16) Tetracycline (Verified Allergy, Unknown, 09/20/16) Venlafaxine (Unverified Allergy, Unknown, UNKNOWN, 09/20/16) Pork (Verified Adverse Reaction, Intermediate, VOMIT, 09/20/16) Chocolate (Verified Adverse Reaction, Mild, MIGRAINES, 09/20/16) [place] (Verified Adverse Reaction, Unknown, VIOLENT EMESIS, 09/20/16) Inpatient Medications Current Inpatient Medications Medications (Trade) Dose Ordered Sig/Nimo Route Start Time Stop Time Status Last Admin Dose Admin Acetaminophen (Tylenol Tab) 650 mg Q4H PRN PO 05/26/17 19:15 06/25/17 19:14 05/27/17 07:47 650 MG Magnesium Hydroxide (Milk Of Magnesia Susp) 30 ml Q12H PRN PO 05/26/17 19:15 06/25/17 19:14 Ondansetron HCl (Zofran Inj) 4 mg Q6H PRN IV 05/26/17 19:15 06/25/17 19:14 05/27/17 05:38 4 MG Atorvastatin Calcium (Lipitor Tab) 40 mg QPM PO 05/26/17 21:00 06/25/17 20:59 05/26/17 22:25 40 MG Clopidogrel Bisulfate (plAVix TAB) 75 mg QAM PO 05/27/17 09:00 06/26/17 08:59 05/27/17 08:59 75 MG Folic Acid (Folvite Tab) 1 mg QPM PO 05/26/17 21:00 06/25/17 20:59 05/26/17 22:26 1 MG Acetaminophen/ Hydrocodone Bitart ([place] 7.5/325 Tab) 1 tab BID PRN PO 05/26/17 19:15 06/09/17 19:14 05/26/17 22:26 1 TAB Lisinopril (Zestril Tab) 40 mg QAM PO 05/27/17 09:00 8/10/17 08:59 05/27/17 09:01 40 MG Lorazepam (Ativan Tab) 0.5 mg BID PRN PO 05/26/17 19:15 06/25/17 19:14 Tizanidine HCl (Zanaflex Tab) 2 mg TID PRN PO 05/26/17 19:15 06/25/17 19:14 Topiramate (Topamax Tab) 50 mg BID PO 05/26/17 21:00 06/25/17 20:59 05/27/17 09:00 50 MG Vitamin B Complex (Vitamin B Complex) 1 tab DAILY PO 05/27/17 09:00 06/26/17 08:59 05/27/17 09:01 1 TAB Nebivolol (Bystolic Tab) 40 mg DAILY PO 05/27/17 09:00 06/26/17 08:59 05/27/17 09:03 40 MG Verapamil HCl ([place]-Sr Tab) 120 mg HS PO 05/26/17 21:00 06/25/17 20:59 05/26/17 22:26 120 MG Verapamil HCl ([place]-Sr Tab) 240 mg QAM PO 05/27/17 09:00 06/26/17 08:59 05/27/17 09:03 240 MG Hydralazine HCl (Apresoline Tab) 100 mg 0000,0600,1200,1800 PO 05/27/17 06:00 06/26/17 05:59 05/27/17 05:37 100 MG Family History Diabetes mellitus Positive for HTN. Negative for CKD / ESRD Social History Smoking Status: Light Tobacco Smoker Drug Use: none Marital Status: Occupation: employed . Current smoker Review of Systems Constitutional: No fever Respiratory: No shortness of breath Cardiovascular: No chest pain A complete review of systems was performed. Pertinent positives are noted above. All other systems are negative. Physical Exam Date Time Temp Pulse Resp B/P (MAP) Pulse Ox O2 Delivery O2 Flow Rate FiO2 05/27/17 08:00 Room Air 05/27/17 07:40 36.8 52 20 178/72 (107) 97 Room Air 05/27/17 04:05 36.5 51 17 161/68 (99) 96 Room Air 05/27/17 04:00 Room Air 05/27/17 00:00 Room Air 05/26/17 23:31 36.5 55 17 118/63 (81) 97 Room Air 05/26/17 22:06 36.4 52 20 195/68 97 Room Air 05/26/17 20:29 49 18 177/55 96 05/26/17 17:52 78 16 225/79 98 Room Air 05/26/17 17:45 49 05/26/17 14:26 36.6 50 18 161/59 94 Room Air General Appearance: no apparent distress Head: normocephalic, atraumatic Eyes: PERRL, EOMI Neck: no adenopathy, + pertinent finding (harsh bilateral carotid artery bruit) Respiratory/Chest: lungs clear Cardiovascular: regular rate, rhythm Abdomen/GI: normal bowel sounds, non tender, soft, + pertinent finding ( Midepigastric arterial bruit w/ radiation to the RUQ. No bruit over LUQ) Extremities/Musculoskelatal: no calf tenderness, no pedal edema Neurologic/Psych: alert, oriented x 3 Laboratory Results Last 24 Hours Test 05/26/17 17:08 05/26/17 23:15 05/27/17 06:55 White Blood Count 6.18 K/uL Red Blood Count 5.08 M/uL Hemoglobin 15.7 g/dL Hematocrit 44.6 % Mean Corpuscular Volume 87.8 fL Mean Corpuscular Hemoglobin 30.9 pg Mean Corpuscular Hemoglobin Concent 35.2 g/dl Platelet Count 267 K/uL Mean Platelet Volume 10.1 fL Neutrophils (%) (Auto) 55.3 % Lymphocytes (%) (Auto) 30.6 % Monocytes (%) (Auto) 11.7 % Eosinophils (%) (Auto) 1.6 % Basophils (%) (Auto) 0.3 % Neutrophils # (Auto) 3.42 K/uL Lymphocytes # (Auto) 1.89 K/uL Monocytes # (Auto) 0.72 K/uL Eosinophils # (Auto) 0.10 K/uL Basophils # (Auto) 0.02 K/uL RDW Standard Deviation 42.8 fL RDW Coefficient of Variation 13.3 % Immature Granulocyte % (Auto) 0.5 % Immature Granulocyte # (Auto) 0.03 K/uL Prothrombin Time 9.9 SECONDS Prothromb Time International Ratio 0.9 Activated Partial Thromboplast Time 34.7 SECONDS Partial Thromboplastin Ratio 1.3 Sodium Level 130 mmol/L 135 mmol/L Potassium Level 3.6 mmol/L 3.6 mmol/L Chloride Level 96 mmol/L 106 mmol/L Carbon Dioxide Level 24 mmol/L 22 mmol/L Anion Gap 10.0 mmol/L 7.0 mmol/L Blood Urea Nitrogen 12 mg/dl 14 mg/dl Creatinine 1.20 mg/dl 1.30 mg/dl Est Creatinine Clear Calc Drug Dose 49.8 ml/min 45.3 ml/min Estimated GFR () 56.5 51.3 Estimated GFR (Non- 48.7 44.2 BUN/Creatinine Ratio 10.3 10.9 Random Glucose 91 mg/dl 119 mg/dl Osmolality 263 mOsm/kg Calcium Level 9.0 mg/dl 8.4 mg/dl Total Bilirubin 0.3 mg/dl Direct Bilirubin 0.1 mg/dl Aspartate Amino Transf (AST/SGOT) 14 U/L Alanine Aminotransferase (ALT/SGPT) 26 U/L Alkaline Phosphatase 77 U/L Total Creatine Kinase 98 U/L Creatine Kinase MB 1.0 ng/ml Creatine Kinase MB Ratio 1.0 Troponin I < 0.015 ng/ml < 0.015 ng/ml < 0.015 ng/ml Total Protein 6.9 gm/dl Albumin 3.9 gm/dl Lipase 566 U/L 518 U/L Estimated Average Glucose 100 mg/dl Hemoglobin A1c 5.1 % Impression (1) Chronic kidney disease (2) Atrophy of right kidney (3) Peripheral vascular disease (4) Atherosclerotic renal artery stenosis, unilateral (5) Hypertension (6) Hyponatremia Mrs. Interiano was admitted w/ thiazide induced hyponatremia and accelerated HTN. Serum sodium has normalized off Chlorthalidone. Blood pressure remains elevated despite beta diana, MAINE inhibitor and several vasodilators. Right kidney is atrophic and nonfunctional due to RADHA. 05/03 imaging studies revealed only plaque disease involving the L renal artery. Recommendations HYPERTENSION: -- Avoid thiazide diuretics (HCTZ, Chlorthalidone) -- Continue Nebivolol, Lisinopril, Verapamil and Hydralazine -- Will add low dose Furosemide -- No clinical symptoms to suggest Cushings disease or Pheochromocytoma -- Await results of TSH and Aldosterone CHRONIC KIDNEY DISEASE: -- Atrophic R kidney w/ baseline creatinine 1.5 -- Patient turned in 24 hour urine collection yesterday. Will await results -- Suspect proteinuria related to longstanding HTN. Urine sediment was benign. Await UPEP results PVD: -- Recommend consultation w/ vascular surgery to determine management plan for R ICA 70 - 80% stenosis OTHER: -- Recommend smoking cessation consult
[2017-05-27] MEDS ORDERED: FUROSEMIDE 20 MG TAB PO ONE (13:00)
--- NOTE | 2017-05-27 13:24 | Medical Student: [facility] ---
Med Student History & Physical Date & Time of Service: May 27, 2017 at 13:24 Chief Complaint: Hyponatremia Primary Care Physician: Cortes Espinosa M.D. History of Present Illness Source: patient, hospital records Patient with PMHx of HTN secondary to R renal artery stenosis s/p stent, R atrophic kidney (x 6months), CKD stage III, carotid stenosis, systolic heart murmur, migraines, and bipolar disorder, presented to the ED for felling "ill" for 2 days prior to admission. Patient reports she was started on Chlorathalidone for her HTN on 05/15/2017, and since then she has felt "sick." She specifically notes recent history of symptoms including excessive thirst, nausea, headaches in greater frequency/duration/severity than baseline, muscle achiness, generally weakness, irritability, and chills. She was seen at her walk-in clinic on 05/24/2017 for similar symptoms, had Na+ level of 123, was told to decrease her water intake and drink gatorade instead. She reports that after switching to gatorade her level of thirst decreased, but was told to follow-up with her PCP on 05/26/2017 if she did not improve; her PCP referred her to the ED because her blood pressure was still "high," and her Na+ was 123. In the ED, a repeat Na+ showed a level of 130. Patient reports that her R renal artery stenosis is followed every 6 months with renal ultrasounds. She states she had a stent placed in her right kidney "4-5" years ago, but at her most recent renal ultrasound (approximately 6 months ago) showed atrophy of the right kidney without any functional capacity. She notes she had a MRA to confirm this diagnosis, and reports no problems with her left kidney at this point. Currently, the patient states her headache is better from tylenol treatment and her nausea has improved with medication treatment. She notes she has migraines at baseline, but the high BP she has experienced recently has worsened her headaches. She states she thinks starting the Chlorathalidone was the root cause of her symptoms, since she has had many uncommon medication reactions in the past. She reports that when her muscles feel "constricted," she thinks it is from the increased headache pain causing muscles to constrict, including muscles around ribcage, causing shortness of breath. She notes an associated symptom of decreased appetite secondary to nausea, without associated weight loss for the last week. She denies blurry vision, hearing changes, dry eyes, any rash, any bruising, abdominal pain, bowel or bladder changes, shortness of breath, vomiting, and leg swelling. Past Medical/Surgical History Medical Problems: (1) Headache Status: Acute (2) Hypertension Status: Chronic (3) Hyponatremia Status: Acute (4) Nausea Status: Acute Social History Smoking Status: Light Tobacco Smoker ("to calm my nerves") Drug Use: none Marital Status: Occupational Status: employed Immunizations History of Influenza Vaccine: No History of Tetanus Vaccine?: UTD History of Pneumococcal: No History of Hepatitis B Vaccine: No Allergies Coded Allergies: Bupropion (Verified Allergy, Unknown, UNKNOWN, 09/20/16) Carbamazepine (Unverified Allergy, Unknown, UNKNOWN, 09/20/16) Codeine (Verified Allergy, Unknown, "TIGHTENS MUSCLES UP" PER PT, 09/20/16) Penicillins (Verified Allergy, Unknown, AMPICILLIN, 09/20/16) Sertraline (Unverified Allergy, Unknown, UNKNOWN, 09/20/16) Sulfa Antibiotics (Unverified Allergy, Unknown, HIVES, 09/23/16) Tetracycline (Verified Allergy, Unknown, 09/20/16) Venlafaxine (Unverified Allergy, Unknown, UNKNOWN, 09/20/16) Pork (Verified Adverse Reaction, Intermediate, VOMIT, 09/20/16) Chocolate (Verified Adverse Reaction, Mild, MIGRAINES, 09/20/16) [place] (Verified Adverse Reaction, Unknown, VIOLENT EMESIS, 09/20/16) Medications Atorvastatin (Lipitor), 40 MG PO QPM B-Complex Vitamins (Vitamin B Complex), 1 TAB PO DAILY Clopidogrel Bisulfate (Plavix), 75 MG PO QAM Ergocalciferol (Vitamin D 86800 Unit), 50,000 INTER.UNIT PO WK Folic Acid (Folvite), 1 MG PO QPM Hydralazine Hcl (Apresoline), 100 MG PO QID Hydrocodone/Acetaminophen 7.5MG/325MG (Van 7.5MG/325MG), 1 TAB PO BID PRN for Pain Lisinopril (Zestril), 40 MG PO QAM Lorazepam (Ativan), 0.5 MG PO BID PRN for Anxiety Nebivolol Hcl (Bystolic), 40 MG PO DAILY Tizanidine (Zanaflex), 2 MG PO TID PRN for Muscle Relaxer Topiramate (Topamax), 50 MG PO BID Verapamil Hcl (Verapamil Hcl Er), 240 MG PO QAM Verapamil Hcl (Verapamil Hcl Er), 120 MG PEG HS Review of Systems Constitutional: No chills (resolved), No weakness (resolved) ENT: No trouble swallowing Respiratory: No shortness of breath, No dyspnea at rest Cardiovascular: No chest pain, No edema Abdomen: + nausea (some relief with zofran), No vomiting Musculoskeletal: No swelling, No calf pain Genitourinary - Female: No dysuria, No urinary urgency Neurologic: No memory loss (no confusion), No balance problems (not above baseline, uses walker/cane at baseline) Endocrine: No excessive thirst (resolved by drinking gatorade), No excessive urination Integumentary: No rash Allergic / Immunologic: + problem reported (many drug allergies; patient now thinks has allergy to Chlorathalidone) Physical Exam Vital Signs (24 Hours) Date Time Temp Pulse Resp B/P (MAP) Pulse Ox O2 Delivery O2 Flow Rate FiO2 05/27/17 12:00 Room Air 05/27/17 11:09 37.0 49 20 146/55 (85) 96 05/27/17 08:00 Room Air 05/27/17 07:40 36.8 52 20 178/72 (107) 97 Room Air 05/27/17 04:05 36.5 51 17 161/68 (99) 96 Room Air 05/27/17 04:00 Room Air 05/27/17 00:00 Room Air 05/26/17 23:31 36.5 55 17 118/63 (81) 97 Room Air 05/26/17 22:06 36.4 52 20 195/68 97 Room Air 05/26/17 20:29 49 18 177/55 96 05/26/17 17:52 78 16 225/79 98 Room Air 05/26/17 17:45 49 05/26/17 14:26 36.6 50 18 161/59 94 Room Air General Appearance: WD/WN, no apparent distress, + obese Head: atraumatic Eyes: normal inspection, PERRL Neck: supple Respiratory/Chest: chest non-tender, lungs clear, normal breath sounds, no respiratory distress, no accessory muscle use Cardiovascular: regular rate, rhythm, no edema, + systolic murmur (history of similar) Abdomen/GI: normal bowel sounds, non tender, soft Back: normal inspection, no CVA tenderness Extremities/Musculoskelatal: no calf tenderness, no pedal edema, normal range of motion (uses walker/cane at baseline) Neurologic/Psych: alert, normal mood/affect, oriented x 3 Skin: normal color, warm/dry, no rash Diagnostics Laboratory Results Results Past 24 Hours Test 05/26/17 17:08 05/26/17 23:15 05/27/17 06:55 Range/Units White Blood Count 6.18 4.8-10.8 K/uL Red Blood Count 5.08 4.2-5.4 M/uL Hemoglobin 15.7 12.0-16.0 g/dL Hematocrit 44.6 37-47 % Mean Corpuscular Volume 87.8 80-100 fL Mean Corpuscular Hemoglobin 30.9 25-34 pg Mean Corpuscular Hemoglobin Concent 35.2 32-36 g/dl Platelet Count 267 130-400 K/uL Mean Platelet Volume 10.1 7.4-10.4 fL Neutrophils (%) (Auto) 55.3 % Lymphocytes (%) (Auto) 30.6 % Monocytes (%) (Auto) 11.7 % Eosinophils (%) (Auto) 1.6 % Basophils (%) (Auto) 0.3 % Neutrophils # (Auto) 3.42 1.4-6.5 K/uL Lymphocytes # (Auto) 1.89 1.2-3.4 K/uL Monocytes # (Auto) 0.72 0.11-0.59 K/uL Eosinophils # (Auto) 0.10 0-0.5 K/uL Basophils # (Auto) 0.02 0-0.2 K/uL RDW Standard Deviation 42.8 36.4-46.3 fL RDW Coefficient of Variation 13.3 11.5-14.5 % Immature Granulocyte % (Auto) 0.5 % Immature Granulocyte # (Auto) 0.03 0.00-0.02 K/uL Prothrombin Time 9.9 9.0-12.0 SECONDS Prothromb Time International Ratio 0.9 0.9-1.1 Activated Partial Thromboplast Time 34.7 21.0-31.0 SECONDS Partial Thromboplastin Ratio 1.3 Sodium Level 130 135 136-145 mmol/L Potassium Level 3.6 3.6 3.5-5.1 mmol/L Chloride Level 96 106 98-107 mmol/L Carbon Dioxide Level 24 22 21-32 mmol/L Anion Gap 10.0 7.0 3-11 mmol/L Blood Urea Nitrogen 12 14 7-18 mg/dl Creatinine 1.20 1.30 0.60-1.20 mg/dl Est Creatinine Clear Calc Drug Dose 49.8 45.3 ml/min Estimated GFR () 56.5 51.3 Estimated GFR (Non- 48.7 44.2 BUN/Creatinine Ratio 10.3 10.9 10-20 Random Glucose 91 119 70-99 mg/dl Osmolality 263 280-300 mOsm/kg Calcium Level 9.0 8.4 8.5-10.1 mg/dl Total Bilirubin 0.3 0.2-1 mg/dl Direct Bilirubin 0.1 0-0.2 mg/dl Aspartate Amino Transf (AST/SGOT) 14 15-37 U/L Alanine Aminotransferase (ALT/SGPT) 26 12-78 U/L Alkaline Phosphatase 77 45-117 U/L Total Creatine Kinase 98 26-192 U/L Creatine Kinase MB 1.0 0.5-3.6 ng/ml Creatine Kinase MB Ratio 1.0 0-3.0 Troponin I < 0.015 < 0.015 < 0.015 0-0.045 ng/ml Total Protein 6.9 6.4-8.2 gm/dl Albumin 3.9 3.4-5.0 gm/dl Lipase 566 518 73-393 U/L Estimated Average Glucose 100 mg/dl Hemoglobin A1c 5.1 4.5-5.6 % Diagnostic Radiology CT of brain without contrast showed no acute findings. It showed minimal subcortical/periventricular microangiopathic changes, atherosclerotic calcification of cavernous carotid and vertebral arteries, but no hemorrhage and no mass effect. CXR normal EKG EKG findings showed sinus [place], but no significant changes from comparison EKG on 10/20/2016. Impression Assessment and Plan Assessment: Светлана Interiano is a 61 yo female with PMHx signficant for right renal artery stenosis s/p stent, recently right atrophic kidney, CKD stage II, carotid stenosis, migraines, and bipolar disoder, presented with low sodium levels, secondary to increased fluid intake prior to arrival. Patient also has HTN secondary to her kidney disease, with recent systolic readings in the 180s. Patient was given Chlorathalidone on 05/15/2017 to help with her HTN, but since taking this medication she has experienced symptoms of hyponatremia. Plan: 1)Hyponatremia - Trend Na+ levels, most recent levels: 130 in ED, 135 in telemetry - Fluid restriction to 1200ml - UA shows 1.007 osmolality and negative for protein - Follow low sodium diet - Do not restart Chlorathalidone and instead begin 20mg Lasix 2) Refractory HTN - HTN with high systolic BP even on multidrug home med regime (Verapamil Hcl Er (Verapamil Hcl) 120 Mg Cap 120 Mg PEG HS, Verapamil Hcl Er (Verapamil Hcl) 240 Mg Cap 240 Mg PO QAM, Apresoline (Hydralazine Hcl) 50 Mg Tab 100 Mg PO QID, Bystolic (Nebivolol Hcl) 20 Mg Tab 40 Mg PO DAILY, and Zestril (Lisinopril) 40 Mg Tab 40 Mg PO QAM) - Consult nephrology for further management. Nephrology suggests patient not be prescribed thiazides, to continue Nebivolol, Lisinopril, Verapamil and Hydralazine, and start low dose (20mg) furosemide 3) CAD/peripheral vascular disease - Consult with vascular surgery pertaining to R ICA with 70-80% stenosis management. - Continue at home medications (Lipitor (Atorvastatin Calcium) 40 Mg Tab 40 Mg PO QPM, Plavix (Clopidogrel Bisulfate) 75 Mg Tab 75 Mg PO QAM, Verapamil as stated above) 4) Elevated lipase - Initial lipase of 566, with repeat of 518 - No complaints of abdominal pain or abdominal pain elicited on exam 5) CKD stage III - Monitor Cr levels, consistent with baseline (1.5). 6) Bipolar disorder - Continue at home medications (Ativan (Lorazepam) 0.5 Mg Tab 0.5 Mg PO BID PRN and Topamax (Topiramate) 50 Mg Tab 50 Mg PO BID). Level of Care Telemetry Advanced Directives Existing Living Will: No Existing Power of Slot Editor: No Resuscitation Status FULL RESUSCITATION DVT Prophylaxis SCDs
--- NOTE | 2017-05-27 14:08 | Hospitalist Progress Note ---
Hospitalist Progress Note Date of Service May 27, 2017. Subjective Pt evaluation today including: conversation w/ patient, physical exam, chart review, lab review, review of studies, review of inpatient medication list Pain: None PO Intake: Tolerating PO diet Voiding: no voiding problems Patient reports feeling better. She still complains of nausea but denies any vomiting, and she was able to eat without any issues. She denies any pain or shortness of breath currently. She states her chills have resolved. The patient denies fevers, chills, sweats, chest pain, palpitations, claudication, cough, wheezing, shortness of breath, vomiting, abdominal pain, dysuria, hematuria, urinary retention, paralysis, weakness, numbness and tingling. Additional Comments: See HPI for pertinent positives and negatives. All other systems reviewed and negative. Objective Vital Signs Date Time Temp Pulse Resp B/P (MAP) Pulse Ox O2 Delivery O2 Flow Rate FiO2 05/27/17 12:00 Room Air 05/27/17 11:09 37.0 49 20 146/55 (85) 96 05/27/17 08:00 Room Air 05/27/17 07:40 36.8 52 20 178/72 (107) 97 Room Air 05/27/17 04:05 36.5 51 17 161/68 (99) 96 Room Air 05/27/17 04:00 Room Air 05/27/17 00:00 Room Air 05/26/17 23:31 36.5 55 17 118/63 (81) 97 Room Air 05/26/17 22:06 36.4 52 20 195/68 97 Room Air 05/26/17 20:29 49 18 177/55 96 05/26/17 17:52 78 16 225/79 98 Room Air 05/26/17 17:45 49 05/26/17 14:26 36.6 50 18 161/59 94 Room Air Physical Exam Notes: General appearance: +Obese. Well-developed, well-nourished, no apparent distress Head: Normocephalic, atraumatic Eyes: Normal inspection, PERRL, EOMI ENT: Normal ENT inspection, hearing grossly normal, pharynx normal Neck: Supple, no JVD, trachea midline Respiratory/Chest: Lungs clear to auscultation, normal breath sounds, no respiratory distress Cardiovascular: +Systolic murmur. Regular rate & rhythm, no gallop Abdomen/GI: Normal bowel sounds, non-tender, soft Extremities/Musculoskeletal: Normal inspection, no calf tenderness, no pedal edema Neurological/Psych: Alert, normal mood/affect, oriented x 3 Skin: Normal color, warm/dry, no rash Laboratory Results Last 24 Hours Test 05/26/17 17:08 05/26/17 23:15 05/27/17 06:55 White Blood Count 6.18 K/uL Red Blood Count 5.08 M/uL Hemoglobin 15.7 g/dL Hematocrit 44.6 % Mean Corpuscular Volume 87.8 fL Mean Corpuscular Hemoglobin 30.9 pg Mean Corpuscular Hemoglobin Concent 35.2 g/dl Platelet Count 267 K/uL Mean Platelet Volume 10.1 fL Neutrophils (%) (Auto) 55.3 % Lymphocytes (%) (Auto) 30.6 % Monocytes (%) (Auto) 11.7 % Eosinophils (%) (Auto) 1.6 % Basophils (%) (Auto) 0.3 % Neutrophils # (Auto) 3.42 K/uL Lymphocytes # (Auto) 1.89 K/uL Monocytes # (Auto) 0.72 K/uL Eosinophils # (Auto) 0.10 K/uL Basophils # (Auto) 0.02 K/uL RDW Standard Deviation 42.8 fL RDW Coefficient of Variation 13.3 % Immature Granulocyte % (Auto) 0.5 % Immature Granulocyte # (Auto) 0.03 K/uL Prothrombin Time 9.9 SECONDS Prothromb Time International Ratio 0.9 Activated Partial Thromboplast Time 34.7 SECONDS Partial Thromboplastin Ratio 1.3 Sodium Level 130 mmol/L 135 mmol/L Potassium Level 3.6 mmol/L 3.6 mmol/L Chloride Level 96 mmol/L 106 mmol/L Carbon Dioxide Level 24 mmol/L 22 mmol/L Anion Gap 10.0 mmol/L 7.0 mmol/L Blood Urea Nitrogen 12 mg/dl 14 mg/dl Creatinine 1.20 mg/dl 1.30 mg/dl Est Creatinine Clear Calc Drug Dose 49.8 ml/min 45.3 ml/min Estimated GFR () 56.5 51.3 Estimated GFR (Non- 48.7 44.2 BUN/Creatinine Ratio 10.3 10.9 Random Glucose 91 mg/dl 119 mg/dl Osmolality 263 mOsm/kg Calcium Level 9.0 mg/dl 8.4 mg/dl Total Bilirubin 0.3 mg/dl Direct Bilirubin 0.1 mg/dl Aspartate Amino Transf (AST/SGOT) 14 U/L Alanine Aminotransferase (ALT/SGPT) 26 U/L Alkaline Phosphatase 77 U/L Total Creatine Kinase 98 U/L Creatine Kinase MB 1.0 ng/ml Creatine Kinase MB Ratio 1.0 Troponin I < 0.015 ng/ml < 0.015 ng/ml < 0.015 ng/ml Total Protein 6.9 gm/dl Albumin 3.9 gm/dl Lipase 566 U/L 518 U/L Estimated Average Glucose 100 mg/dl Hemoglobin A1c 5.1 % Assessment and Plan 61 y/o female with PMHx of Secondary HTN due to R Renal Artery Stenosis S/P Stent, R Atrophic Kidney, CKD Stage III, Carotid Stenosis, Migraine HAs, and Bipolar I Disorder who presents to the ED for hyponatremia x 2 days. Hyponatremia--improving -Admit to telemetry. Pt in sinus bradycardia overnight with HR 40s-50s -Sodium 130 on admission, had been as low as 123 as outpatient -Fluid restriction 1200 mL -Sodium improved to 135 on 05/27 -Serum and urine osm both low -Nephrology consulted, appreciate recs: Avoid thiazide diuretics. Continue hydralazine, lisinopril, verapamil and Bystolic. Added low dose Lasix. -Lasix 20 mg PO qd Secondary HTN 2/2 R Renal Artery Stenosis S/P Stent--improving - Continue hydralazine 100 mg PO QID, lisinopril 40 mg PO qd, verapamil 240 mg PO qam and 120 mg PO qpm, and Bystolic 40 mg PO qd Elevated Lipase--stable - Lipase 566 on admission -Repeat lipase 518. Denies any abdominal pain HLD and Carotid Stenosis (L<R)--pt follows with Dr. Ruffin -Continue atorvastatin 40 mg PO qd and Plavix 75 mg PO qd CKD Stage III--Baseline Cr 1.0-1.2 -Creatinine stable, around baseline Bipolar Type I and Migraine RIVAS - Continue Ativan 0.5 mg BID PRN, Zanaflex 2 mg TID PRN, Topiramate 50 mg BID, and Verapamil 240 mg AM and 120 mg PM DVT prophylaxis -SCDs Code Status -Level I, FULL RESUSCITATION STATUS
[2017-05-27] MEDS: ATORVASTATIN 40 MG TAB PO SCH (21:16)
[2017-05-27] MEDS: VERAPAMIL HCL 120 MG TABCR PO SCH (21:17)
[2017-05-28 03:28] VITALS: BP 121/43; PULSE 51; TEMP 36.6; O2SAT 96
[2017-05-28 07:13] VITALS: BP 123/61; PULSE 50; TEMP 36.8; O2SAT 97
[2017-05-28 07:41] LABS: BUN/CREATININE RATIO 10.8 (10-20); CALCIUM 8.6 mg/dl (8.5-10.1); CREATININE 1.4 mg/dl (0.60-1.20)
[2017-05-28 07:48] LABS: HEMATOCRIT 39.8 % (37-47); MEAN CELL VOLUME 88.8 fL (80-100); MEAN CORPUSCULAR HEMOGLOBIN 29.2 pg (25-34); MEAN CORPUSCULAR HGB CONC 32.9 g/dl (32-36); MEAN PLATELET VOLUME 9.8 fL (7.4-10.4); PLATELET COUNT 254 K/uL (130-400); RED BLOOD COUNT 4.48 M/uL (4.2-5.4); WHITE BLOOD COUNT 6.44 K/uL (4.8-10.8)
--- NOTE | 2017-05-28 08:27 | Nephrology Progress Note ---
Nephrology Progress Note Date of Service May 28, 2017. Chief Complaint Follow up evaluation of hypertension Subjective Mrs. Interiano was seen & examined in the PCU this morning. She tolerated Furosemide yesterday without side effect. She did not notice any increase in urine output. She currently voices no medical concerns. She had resting bradycardia overnight w/ HR 40 - 50 bpm. She has not yet been up ambulating in the hallway. Review of Systems Constitutional: No fever Cardiovascular: No chest pain Respiratory: No dyspnea at rest Abdomen: No pain, No nausea, No vomiting Extremities: No leg edema A complete review of systems was performed. Pertinent positives are noted above. All other systems are negative. Vital Signs Last 8 Hrs Date Time Temp Pulse Resp B/P (MAP) Pulse Ox O2 Delivery O2 Flow Rate FiO2 05/28/17 08:00 Room Air 05/28/17 07:13 36.8 50 18 123/61 (81) 97 Room Air 05/28/17 04:00 Room Air 05/28/17 03:28 36.6 51 20 121/43 (69) 96 Room Air Last Recorded Weight Weight (Kilograms): 80.800 Physical Exam General Appearance: no apparent distress Head: normocephalic, atraumatic Eyes: PERRL Neck: + pertinent finding (bilateral carotid artery bruit R > L) Respiratory/Chest: lungs clear Cardiovascular: + bradycardia (harsh systolic murmur) Abdomen/GI: normal bowel sounds, non tender, soft Extremities/Musculoskelatal: no calf tenderness, no pedal edema Neurologic/Psych: alert, oriented x 3 Family History Diabetes mellitus Positive for HTN. Negative for CKD / ESRD Social History Smoking Status: Current every day smoker Drug Use: none Marital Status: Occupation: employed . Current smoker Laboratory Results Past 24 Hours 05/28/17 06:23 05/28/17 06:23 Test 05/28/17 06:23 Red Blood Count 4.48 M/uL (4.2-5.4) Mean Corpuscular Volume 88.8 fL (80-100) Mean Corpuscular Hemoglobin 29.2 pg (25-34) Mean Corpuscular Hemoglobin Concent 32.9 g/dl (32-36) RDW Standard Deviation 44.8 fL (36.4-46.3) RDW Coefficient of Variation 13.7 % (11.5-14.5) Mean Platelet Volume 9.8 fL (7.4-10.4) Anion Gap 10.0 mmol/L (3-11) Est Creatinine Clear Calc Drug Dose 42.5 ml/min Estimated GFR () 46.9 Estimated GFR (Non- 40.5 BUN/Creatinine Ratio 10.8 (10-20) Calcium Level 8.6 mg/dl (8.5-10.1) Allergies Coded Allergies: Bupropion (Verified Allergy, Unknown, UNKNOWN, 09/20/16) Carbamazepine (Unverified Allergy, Unknown, UNKNOWN, 09/20/16) Codeine (Verified Allergy, Unknown, "TIGHTENS MUSCLES UP" PER PT, 09/20/16) Penicillins (Verified Allergy, Unknown, AMPICILLIN, 09/20/16) Sertraline (Unverified Allergy, Unknown, UNKNOWN, 09/20/16) Sulfa Antibiotics (Unverified Allergy, Unknown, HIVES, 09/23/16) Tetracycline (Verified Allergy, Unknown, 09/20/16) Venlafaxine (Unverified Allergy, Unknown, UNKNOWN, 09/20/16) Pork (Verified Adverse Reaction, Intermediate, VOMIT, 09/20/16) Chocolate (Verified Adverse Reaction, Mild, MIGRAINES, 09/20/16) Mark (Verified Adverse Reaction, Unknown, VIOLENT EMESIS, 09/20/16) Medications Current Inpatient Medications Medications (Trade) Dose Ordered Sig/Nimo Route Start Time Stop Time Status Last Admin Dose Admin Acetaminophen (Tylenol Tab) 650 mg Q4H PRN PO 05/26/17 19:15 06/25/17 19:14 05/27/17 21:15 650 MG Magnesium Hydroxide (Milk Of Magnesia Susp) 30 ml Q12H PRN PO 05/26/17 19:15 06/25/17 19:14 Ondansetron HCl (Zofran Inj) 4 mg Q6H PRN IV 05/26/17 19:15 06/25/17 19:14 05/27/17 05:38 4 MG Atorvastatin Calcium (Lipitor Tab) 40 mg QPM PO 05/26/17 21:00 06/25/17 20:59 05/27/17 21:16 40 MG Clopidogrel Bisulfate (plAVix TAB) 75 mg QAM PO 05/27/17 09:00 06/26/17 08:59 05/27/17 08:59 75 MG Folic Acid (Folvite Tab) 1 mg QPM PO 05/26/17 21:00 06/25/17 20:59 05/27/17 21:16 1 MG Acetaminophen/ Hydrocodone Bitart (Sabattus 7.5/325 Tab) 1 tab BID PRN PO 05/26/17 19:15 06/09/17 19:14 05/26/17 22:26 1 TAB Lisinopril (Zestril Tab) 40 mg QAM PO 05/27/17 09:00 06/26/17 08:59 05/27/17 09:01 40 MG Lorazepam (Ativan Tab) 0.5 mg BID PRN PO 05/26/17 19:15 06/25/17 19:14 Tizanidine HCl (Zanaflex Tab) 2 mg TID PRN PO 05/26/17 19:15 06/25/17 19:14 Topiramate (Topamax Tab) 50 mg BID PO 05/26/17 21:00 06/25/17 20:59 05/27/17 21:16 50 MG Vitamin B Complex (Vitamin B Complex) 1 tab DAILY PO 05/27/17 09:00 06/26/17 08:59 05/27/17 09:01 1 TAB Nebivolol (Bystolic Tab) 40 mg DAILY PO 05/27/17 09:00 06/26/17 08:59 05/27/17 09:03 40 MG Verapamil HCl (Calan-Sr Tab) 120 mg HS PO 05/26/17 21:00 06/25/17 20:59 05/27/17 21:17 120 MG Verapamil HCl (Calan-Sr Tab) 240 mg QAM PO 05/27/17 09:00 06/26/17 08:59 05/27/17 09:03 240 MG Hydralazine HCl (Apresoline Tab) 100 mg 0000,0600,1200,1800 PO 05/27/17 06:00 06/26/17 05:59 05/28/17 05:57 100 MG Furosemide (Lasix Tab) 20 mg QAM PO 05/28/17 09:00 06/27/17 08:59 Impression (1) Chronic kidney disease (2) Atrophy of right kidney (3) Peripheral vascular disease (4) Atherosclerotic renal artery stenosis, unilateral (5) Hypertension (6) Hyponatremia Mrs. Interiano was admitted w/ thiazide induced hyponatremia and accelerated HTN. Serum sodium has normalized off Chlorthalidone. Blood pressure remains elevated despite beta diana, MAINE inhibitor and several vasodilators. Right kidney is atrophic and nonfunctional due to RADHA. 05/03 imaging studies revealed only plaque disease involving the L renal artery. Recommendations HYPERTENSION: -- Avoid thiazide diuretics (HCTZ, Chlorthalidone) -- Continue Nebivolol, Lisinopril and Hydralazine -- Continue low dose Furosemide -- Will reduce Verapamil to 120 mg po BID and monitor HR, BP -- No clinical symptoms to suggest Cushings disease or Pheochromocytoma -- Cortisol - normal, TSH - normal. Aldosterone level - pending CHRONIC KIDNEY DISEASE: -- Atrophic R kidney w/ baseline creatinine 1.5 -- Patient turned in 24 hour urine collection - 240 mg protein / day. UIEP - pending -- Suspect proteinuria related to longstanding HTN. Urine sediment was benign. Await UPEP results PVD: -- Recommend consultation w/ vascular surgery to determine management plan for R ICA 70 - 80% stenosis OTHER: -- Recommend smoking cessation consult
[2017-05-28] MEDS: VITAMIN B COMPLEX TAB PO SCH (08:44)
[2017-05-28] MEDS: NEBIVOLOL HCL 5 MG TAB PO SCH (08:44)
[2017-05-28] MEDS: LISINOPRIL 40 MG TAB PO SCH (08:44)
[2017-05-28] MEDS: TOPIRAMATE 25 MG TAB PO SCH (08:44)
[2017-05-28] MEDS: CLOPIDOGREL BISULFATE 75 MG TAB PO SCH (08:45)
[2017-05-28] MEDS ORDERED: FUROSEMIDE 20 MG TAB PO SCH (09:00)
[2017-05-28] MEDS ORDERED: VERAPAMIL HCL 120 MG TABCR PO SCH (09:00)
[2017-05-28 11:11] VITALS: BP 146/54; PULSE 52; TEMP 36.7; O2SAT 94
[2017-05-28] MEDS ORDERED: LSX20 PO (11:37)
[2017-05-28] MEDS ORDERED: VERA120C2 PO (11:37)
--- NOTE | 2017-05-28 11:48 | Discharge Instructions ---
Discharge Instructions Date of Service May 28, 2017. Admission Reason for Admission: Hyponatremia Discharge Discharge Diagnosis / Problem: Hyponatremia, hypertension Discharge Goals Goal(s): Decrease discomfort, Improve function, Diagnostic testing, Therapeutic intervention Activity Recommendations Activity Limitations: resume your previous activity . Instructions / Follow-Up Instructions / Follow-Up You were admitted to the hospital after presenting with hyponatremia (low sodium in the blood) and uncontrolled hypertension (high blood pressure). You placed on a strict fluid restriction as well as a diuretic called Lasix, which improved your sodium and brought it back to normal levels. Your blood pressure also improved during your stay. You are now medically stable for discharge. Medications: *Please take Lasix (furosemide) 20 mg by mouth daily. *Your verapamil dose has been decreased to 120 mg by mouth twice a day. STOP taking verapamil 240 mg in the morning. *Continue your other home medications as prescribed. Recommendations: *Continue to watch your fluid intake/fluid restriction as you had been doing prior to arriving to the hospital. Follow up: *You have been scheduled to follow up at your primary care provider's office with Nathalia Stevens PA-C on May 30 at 2:00 pm. *Maintain your previous appointment with Dr. Herrera on June 02 at 11: 15 am. Please seek medical attention if you experience fevers, chills, sweats, dizziness/lightheadedness, loss of consciousness, chest pain, shortness of breath, nausea, vomiting, numbness or tingling. Current Hospital Diet Patient's current hospital diet: Renal Diet, Regular Diet, Gluten Free Diet Discharge Diet Recommended Diet: Renal Diet Fluid Restriction: 1500 ml (6 cups) Pending Studies Studies pending at discharge: no Laboratory Results Hemoglobin A1c Test 05/27/17 06:55 Range/Units Estimated Average Glucose 100 mg/dl Hemoglobin A1c 5.1 4.5-5.6 % Medical Emergencies . Who to Call and When: Medical Emergencies: If at any time you feel your situation is an emergency, please call 911 immediately. . Non-Emergent Contact Non-Emergency issues call your: Primary Care Provider, Career Resource Specialist Call Non-Emergent contact if: you have a fever, you have any medication questions . Past History Medical & Surgical History: (1) Hyponatremia (2) Hypertension (3) Chronic kidney disease . "Provider Documentation" section prepared by Luiza Angel. . VTE Core Measure Inpt VTE Proph given/why not?: Paulie Reis, [facility]
[2017-05-28 12:06] VITALS: BP 146/54; PULSE 52; TEMP 36.7; O2SAT 94
--- NOTE | 2017-05-28 13:58 | Discharge Summary ---
Discharge Summary Date of Service May 28, 2017. (Luiza Angel .TRAVON) Discharge Summary Admission Date: May 26, 2017 at 19:33 Discharge Date: May 28, 2017 Discharge Disposition: Home Principal Diagnosis: Hyponatremia, hypertension Problems/Secondary Diagnoses: (1) Hypertension Status: Chronic Immunizations: Have You Had Influenza Vaccine: No History of Tetanus Vaccine?: UTD History of Pneumococcal: No History of Hepatitis B Vaccine: No Procedures: CT SCAN OF THE BRAIN WITHOUT IV CONTRAST CLINICAL HISTORY: Headache. COMPARISON STUDY: CT the brain dated 06/08/2012. TECHNIQUE: Unenhanced axial CT scan of the brain is performed from the vertex to the skull base. Automated dose control exposure was utilized. CT DOSE: 537.48 mGy.cm FINDINGS: Brain parenchyma: There is minimal subcortical and periventricular microangiopathic change. The brain parenchyma is otherwise normal in appearance. There is no hemorrhage, mass effect, or evidence of acute territorial ischemia by CT criteria. Humphries-white matter is preserved. No extra-axial fluid collection is seen. Ventricles, sulci, cisterns: Normal in configuration. Intracranial vasculature: There is atherosclerotic calcification of the cavernous carotid and vertebral arteries. Calvarium: Unremarkable. Sinuses and mastoids: The visualized paranasal sinuses are clear. The mastoid air cells are well pneumatized. Orbits: The bony orbits are grossly intact. IMPRESSION: There is no hemorrhage, mass effect, or evidence of acute territorial ischemia by CT criteria. CHEST ONE VIEW PORTABLE CLINICAL HISTORY: Hypertension COMPARISON STUDY: 10/20/2012 FINDINGS: The heart is borderline enlarged. There is mild hilar prominence, likely secondary to prominent central pulmonary arteries. Pulmonary arterial hypertension must be considered.[ There is no failure. There is no focal pulmonary consolidation. No pleural effusions are visualized. IMPRESSION: AP portable study. No evidence of failure. No evidence of focal pulmonary consolidation. Prominent hilar/central pulmonary arteries. Consultations: Nephrology--Dr. Martinez (Luiza Angel ., [place]) Medication Reconciliation New Medications: Furosemide (Furosemide) 20 Mg Tab 20 MG PO QAM for 30 Days, #30 TAB Changed Medications: Verapamil Hcl (Verapamil Hcl Er) 120 Mg Cap 120 MG PO BID for 30 Days, #60 CAP (Changed from: PEG; HS) Take 1 capsule twice a day. Continued Medications: Atorvastatin (Lipitor) 40 Mg Tab 40 MG PO QPM, TAB B-Complex Vitamins (Vitamin B Complex) 1 Tab Tab 1 TAB PO DAILY Clopidogrel Bisulfate (Plavix) 75 Mg Tab 75 MG PO QAM, TAB Ergocalciferol (Vitamin D 06059 Unit) 50,000 Unit Cap 69088 INTER.UNIT PO WK, CAP TAKE THIS MEDICATION EVERY SUMDAY Folic Acid (Folvite) 1 Mg Tab 1 MG PO QPM, TAB Hydralazine Hcl (Apresoline) 50 Mg Tab 100 MG PO QID, TAB Hydrocodone/Acetaminophen 7.5MG/325MG ([place] 7.5MG/325MG) Tab 1 TAB PO BID PRN for Pain, TAB Lisinopril (Zestril) 40 Mg Tab 40 MG PO QAM, TAB Lorazepam (Ativan) 0.5 Mg Tab 0.5 MG PO BID PRN for Anxiety, TAB Nebivolol Hcl (Bystolic) 20 Mg Tab 40 MG PO DAILY, TAB Tizanidine (Zanaflex) 2 Mg Cap 2 MG PO TID PRN for Muscle Relaxer, CAP Topiramate (Topamax) 50 Mg Tab 50 MG PO BID, TAB Discontinued Medications: Verapamil Hcl (Verapamil Hcl Er) 240 Mg Cap 240 MG PO QAM, CAP Discharge Exam Patient reports feeling well. She denies any complaints and her nausea has resolved. She is tolerating a PO diet well and urinating without difficulties. The patient denies fevers, chills, sweats, chest pain, palpitations, claudication, cough, wheezing, shortness of breath, nausea, vomiting, abdominal pain, dysuria, hematuria, urinary retention, paralysis, weakness, numbness and tingling. Review of Systems: Constitutional: No fever, No chills, No sweats Eyes: No worsening of vision, No eye pain, No diplopia ENT: No hearing loss, No sore throat, No trouble swallowing Respiratory: No cough, No wheezing, No shortness of breath Cardiovascular: No chest pain, No claudication, No palpitations Abdomen: No pain, No nausea, No vomiting Musculoskeletal: No joint pain, No muscle pain, No calf pain Genitourinary - Female: No dysuria, No urinary retention, No hematuria Neurologic: No paralysis, No weakness, No numbness/tingling Integumentary: No rash, No itch, No color change Physical Exam: General Appearance: WD/WN, no apparent distress, + obese Eyes: normal inspection, PERRL, EOMI ENT: normal ENT inspection, hearing grossly normal, pharynx normal Neck: supple, no JVD, trachea midline Respiratory/Chest: normal breath sounds, no respiratory distress, + decreased breath sounds Cardiovascular: no gallop, + bradycardia (regular rhythm), + systolic murmur Abdomen / GI: normal bowel sounds, non tender, soft Extremities: normal inspection, no calf tenderness, no pedal edema Neurologic/Psychiatric: alert, normal mood/affect, oriented x 3 Skin: normal color, warm/dry, no rash (Luiza Angel ., TRAVON) Hospital Course 61 y/o female with PMHx of Secondary HTN due to R Renal Artery Stenosis S/P Stent, R Atrophic Kidney, CKD Stage III, Carotid Stenosis, Migraine HAs, and Bipolar I Disorder who presents to the ED for hyponatremia x 2 days. Hyponatremia--resolved -Admit to telemetry. Pt in sinus bradycardia overnight with HR 40s-50s. This is reportedly baseline. -Sodium 130 on admission, had been as low as 123 as outpatient -Fluid restriction 1200 mL. Recommended pt continue with fluid restriction after discharge -Sodium improved to 135 on 05/27, up to 138 on 05/28 -Serum and urine osm both low -Nephrology consulted, appreciate recs: Avoid thiazide diuretics. Continue hydralazine, lisinopril, and Bystolic. Added low dose Lasix. Decrease verapamil to 120 mg PO BID. -Lasix 20 mg PO qd Secondary HTN 2/2 R Renal Artery Stenosis S/P Stent--improving - Continue hydralazine 100 mg PO QID, lisinopril 40 mg PO qd, verapamil 120 mg PO BID and Bystolic 40 mg PO qd. Lasix as above. Elevated Lipase--stable - Lipase 566 on admission -Repeat lipase 518. Denies any abdominal pain HLD and Carotid Stenosis (L<R)--pt follows with Dr. Ruffin -Continue atorvastatin 40 mg PO qd and Plavix 75 mg PO qd CKD Stage III--Baseline Cr 1.0-1.2 -Creatinine stable, around baseline Bipolar Type I and Migraine RIVAS - Continue Ativan 0.5 mg BID PRN, Zanaflex 2 mg TID PRN, Topiramate 50 mg BID, and Verapamil 120 mg PO BID DVT prophylaxis -SCDs Code Status -Level I, FULL RESUSCITATION STATUS Dispo -Pt stable for d/c to home -Scheduled to f/u with Dr. Herrera (nephrology) 06/02 and PCP office 05/30 Total Time Spent: Greater than 30 minutes This includes examination of the patient, discharge planning, medication reconciliation, and communication with other providers. (Luiza Angel ., PA-C) I agree with PA assessment and plan and have seen and examined pt myself Resting comfortably in bed Labs and vitals reviewed BP well managed DC on lasix and reduced verapamil dose F/U with Dr Herrera DO NOT TAKE anymore thiazides/chlorthalidone (Gage Li, D.O.) Discharge Instructions Please refer to the electronic Patient Visit Report (Discharge Instructions) for additional information. (Luiza Angel ., PA-C) Additional Copies To Cortes Espinosa M.D.; Nathalia Stevens P.A.
== END 2017-05-28 16:27 | disposition home or self-care (01) | DRG 641 ==
LOC: C.EDB 14:03 → C.2T 19:33 → ENRESERV 19:55
PROVIDERS: ADMIT Family Medicine; ATTEND Hospitalist
DX: E87.1 Hypo-osmolality and hyponatremia (principal); N18.3 Chronic kidney disease, stage 3 (moderate); I15.0 Renovascular hypertension; I70.1 Atherosclerosis of renal artery; R07.89 Other chest pain; R00.1 Bradycardia, unspecified; Z96.0 Presence of urogenital implants; E78.5 Hyperlipidemia, unspecified; G43.909 Migraine, unspecified, not intractable, without status migrainosus; F17.210 Nicotine dependence, cigarettes, uncomplicated; R01.1 Cardiac murmur, unspecified; E66.9 Obesity, unspecified; I73.9 Peripheral vascular disease, unspecified; N26.1 Atrophy of kidney (terminal); I65.23 Occlusion and stenosis of bilateral carotid arteries; Z79.899 Other long term (current) drug therapy; Z79.02 Long term (current) use of antithrombotics/antiplatelets; Z79.891 Long term (current) use of opiate analgesic; Z68.31 Body mass index [BMI] 31.0-31.9, adult

== ENCOUNTER → 2017-05-26 | Outpatient (CLI) | payer OTHER, MEDICARE ==
[2017-05-26 17:49] LABS: BUN/CREATININE RATIO 9.3 (10-20); CALCIUM 9.3 mg/dl (8.5-10.1); CREATININE 1.4 mg/dl (0.60-1.20); POTASSIUM 3.8 mmol/L (3.5-5.1)
[2017-05-26 18:15] LABS: URINE TOTAL PROTEIN 9.6 mg/dl (0-11.9)
[2017-05-26 20:47] LABS: CREATININE 1.4 mg/dl (0.6-1.2); URINE TOTAL PROTEIN CALC 247.2 mg/24 hr (0-149.1)
== END | disposition home or self-care (01) ==
LOC: C.LABBFT 12:47
PROVIDERS: ATTEND Internal Medicine Nephrology
DX: I10 Essential (primary) hypertension (principal); E87.1 Hypo-osmolality and hyponatremia

== ENCOUNTER → 2017-05-30 | Outpatient (CLI) | payer OTHER, MEDICARE ==
[~2017-05-30] MED LIST changes: +ASPEC81 PO; -ATEN50TA8 PO; +B-COTAB18 PO; -ERGO1CAP35 PO; +ERGO1CAP41 PO; +LSX20 PO; -MELATAB2 PO; +NEBI20TA2 PO; +PROM1SUP19 PR; -PROM25TA9 PO; +VERA120C2 PO; -VERA120T65 PO; -VERA240T21 PO
[2017-05-30 16:39] LABS: BLOOD UREA NITROGEN 16 mg/dl (7-18); BUN/CREATININE RATIO 10.6 (10-20); CARBON DIOXIDE 26 mmol/L (21-32); CHLORIDE 107 mmol/L (98-107); GLUCOSE 92 mg/dl (70-99); SODIUM 139 mmol/L (136-145)
== END | disposition home or self-care (01) ==
LOC: C.LABBFT 12:43
PROVIDERS: ATTEND Physician Assistant Medical
DX: E87.1 Hypo-osmolality and hyponatremia (principal)

== ENCOUNTER → 2017-08-04 | Outpatient (CLI) | payer OTHER, MEDICARE ==
[2017-08-04 15:01] LABS: BLOOD UREA NITROGEN 13 mg/dl (7-18); BUN/CREATININE RATIO 8.9 (10-20); CALCIUM 9.2 mg/dl (8.5-10.1); CARBON DIOXIDE 22 mmol/L (21-32); CHLORIDE 109 mmol/L (98-107); GLUCOSE 94 mg/dl (70-99); PHOSPHORUS 3.3 mg/dl (2.5-4.9); POTASSIUM 3.6 mmol/L (3.5-5.1); SODIUM 140 mmol/L (136-145)
[2017-08-07 13:21] LABS: HEMATOCRIT 43.3 % (37-47); MEAN CELL VOLUME 93.9 fL (80-100); MEAN CORPUSCULAR HEMOGLOBIN 30.6 pg (25-34); MEAN CORPUSCULAR HGB CONC 32.6 g/dl (32-36); MEAN PLATELET VOLUME 10.6 fL (7.4-10.4); PLATELET COUNT 276 K/uL (130-400); RED BLOOD COUNT 4.61 M/uL (4.2-5.4); WHITE BLOOD COUNT 7.05 K/uL (4.8-10.8)
[2017-08-07 13:32] LABS: INR 0.9 (0.9-1.1); PROTHROMBIN TIME (PATIENT) 9.8 SECONDS (9.0-12.0)
== END | disposition home or self-care (01) ==
LOC: C.LAB1850 13:34
PROVIDERS: ATTEND Internal Medicine Nephrology
DX: R94.39 Abnormal result of other cardiovascular function study (principal); I10 Essential (primary) hypertension

== ENCOUNTER 2017-08-21 06:08 | Observation (INO) | payer OTHER, MEDICARE ==
[~2017-08-21] VITALS: Ht 162.6 cm; Wt 80.1 kg
[2017-08-21] VITALS (14 sets, daily range): BP systolic 80–174; BP diastolic 46–84; PULSE 57–70; TEMP 36.8–37.6; O2SAT 90–97; Ht 162.6 cm; Wt 80.1 kg
[~2017-08-21 06:08] MED LIST changes: -ASPEC81 PO; -PROM1SUP19 PR
[2017-08-21] MEDS ORDERED: PROM1SUP19 PR (08:03)
[2017-08-21] MEDS ORDERED: ASPIRIN 81 MG CHEW ONE (09:13)
[2017-08-21] MEDS ORDERED: NiCARDipine HCL INJ 2.5 MG/ML 10 ML AMP ONE (09:34)
[2017-08-21] MEDS ORDERED: HEPARIN SOD (PORCINE) 1000 UNIT/ML 10 ML VIAL ONE ×2 (09:34→11:31)
[2017-08-21] MEDS ORDERED: FENTANYL CITRATE INJ 50 MCG/1 ML 2 ML VIAL ONE ×3 (09:35→11:07)
[2017-08-21] MEDS ORDERED: NITROGLYCERIN/D5W 100MCG/ML 20ML SYR ONE (09:35)
[2017-08-21] MEDS ORDERED: MIDAZOLAM HCL 1 MG/ML 2ML VIAL ONE ×3 (09:35→10:42)
--- NOTE | 2017-08-21 09:36 | Procedure Note ---
Pre-Mod Sedation Assessment General Date of Moderate Sedation: Aug 21, 2017. Vital Signs: Vital Signs Past 12 Hours Date Time Temp Pulse Resp B/P (MAP) Pulse Ox O2 Delivery O2 Flow Rate FiO2 08/21/17 07:00 36.8 59 16 105/50 96 Room Air 174/49 Review Cardiovascular: regular rate, rhythm, + systolic murmur Abdomen: non tender, soft Lungs: lungs clear Pre-Sedation Airway Assessment Oral Cavity: Dentures Short Thick Neck: No Hx of Sleep Apnea: No Smoking Status: Current Some Day Smoker Procedure Planning Contraindications-for Mod Sed: None Yes Notes The planned sedation has been discussed with the patient and consent obtained. I have identified the patient, determined the appropriateness of sedation and have assessed the patient immediately prior to the procedure. All medicine(s) and interventions are by my order.
--- NOTE | 2017-08-21 09:56 | HISTORY & PHYSICAL EXAMINATION ---
DATE OF ADMISSION: 08/21/2017 TIME: 09:28 a.m. CHIEF COMPLAINT: Here for cardiac catheterization. HISTORY OF PRESENT ILLNESS: Ms. Interiano is a 62-year-old female with a history significant for hypertension, dyslipidemia, peripheral arterial disease, one functional kidney, impaired fasting glucose, bipolar disorder, complex migraines and PFO. She was referred for cardiac catheterization following a stress echo, which was ordered for atypical chest pain. This stress echo was done on 08/04/2017 and it was abnormal at 64% maximum predicted heart rate. She had poor exercise tolerance and also described chest pain in recovery with a markedly abnormal exercise ECG. She did have a hypertensive response to exercise with a peak blood pressure of 220/80 mmHg. Her chest pain was described as left-sided chest discomfort that does not radiate and was not associated with shortness of breath. It was substernal and described as a pressure sensation lasting approximately 5 minutes. Typically, symptoms would occur during the violent migraines. She has dyspnea with exertion as well, but not related to her chest pain. There is no reported bleeding such as melena, hematochezia, or hematuria. PAST MEDICAL HISTORY: 1. Abnormal stress echo as noted above. 2. Hypertension. 3. Dyslipidemia. 4. Impaired fasting glucose. 5. Bipolar disorder. 6. Complex migraines. 7. Arnold-Chiari alternation. 8. Patent foramen ovale. 9. Renal artery stenosis with one functional kidney. 10. Left subclavian artery stenosis. 11. Carotid artery stenosis. 12. Osteopenia. 13. Hyponatremia. 14. Gastroparesis. 15. Chronic kidney disease. 16. Superior mesenteric artery stenosis. 17. Vertigo. 18. Vitamin D deficiency. HOME MEDICATIONS: Include Plavix 75 mg daily, atorvastatin 40 mg daily, Bystolic 20 mg daily, Lasix 20 mg daily, hydralazine 100 mg q. 6 hours, lisinopril 40 mg daily, and verapamil 120 mg twice daily. ALLERGIES: INCLUDE CARVEDILOL, CHLORTHALIDONE, CODEINE DERIVATIVES, EFFEXOR, FLAGYL, HCTZ, LITHIUM, PENICILLIN, SULFA DRUGS, TEGRETOL, TETRACYCLINE, WELLBUTRIN, ZOLOFT, AND CHOCOLATE. SOCIAL HISTORY: Smokes occasionally. Rare alcohol. No drugs. Lives at home with her . Her and son are present today. FAMILY HISTORY: Mother with heart disease. Father had valve replacement in the 70s. No known premature CAD. PHYSICAL EXAMINATION: VITAL SIGNS: Temperature 36.8 degrees, heart rate 59 beats per minute, respiratory rate 16, blood pressure in the left arm 105/50 mmHg, blood pressure in the right arm 174/49 mmHg, and oxygen saturation 96% on room air. GENERAL: No acute distress. She is alert. NECK: No JVD. CARDIAC EXAM: No ventricular heave. Regular, normal S1 and S2. 2/6 early peaking systolic ejection murmur best heard at the right upper sternal border. No rubs or gallops. LUNGS: Decreased breath sounds throughout, but otherwise clear. ABDOMEN: Soft, nontender, and nondistended. EXTREMITIES: 1-2+ right radial pulse. 2+ femoral pulses bilaterally with femoral bruits. No cyanosis or edema. PSYCHIATRIC: Affect appears appropriate. LABORATORY DATA: From July 2017, white blood cell count 7.05, hemoglobin 14.1, and platelets 276. Sodium 140, potassium 3.6, BUN 13, and creatinine 1.5. INR 0.9. Chest x-ray on 05/26/2017. No consolidation. Prominent hilar/central pulmonary arteries. Stress echo report as above. ECG on 05/27/2017, sinus bradycardia at 57 beats per minute. Nonspecific ST-T wave abnormality. ASSESSMENT AND PLAN: 1. Abnormal stress echo and stress ECG: Given her symptoms of chest pain, however, is somewhat atypical, and her multiple risk factors with a significantly abnormal stress echo, cardiac catheterization was recommended as an outpatient. Risks and benefits have been discussed with her in detail. She was made aware that CT surgery is not available at this facility. The patient has given informed written consent to undergo the procedure at [facility] for diagnostic coronary angiography and PCI, if deemed appropriate. She has been brought in early for IV hydration for chronic kidney disease. 2. Disposition: Cardiac catheterization will be performed and further disposition upon findings.
[2017-08-21] MEDS ORDERED: ADENOSINE IV SOLN 3 MG/ML 20 ML VIAL ONE (10:10)
--- NOTE | 2017-08-21 11:17 | Cardiac Catheterization ---
Procedure Note Procedure Date Aug 21, 2017. Pre-Procedure Diagnosis Positive Stress Test AUC Score 9 Post-Procedure Diagnosis Severe CAD, Normal Intracardiac Pressures Procedure(s) Performed Coronary Angiography, Left Heart Cath Circulation Manager Dr. Vargas Loom Blower(s) Glunt Estimated Blood Loss < 20 ml Medication(s) Fentanyl, Heparin, Nicardipine, Versed, Lidocaine 1% Summary of Findings Coronary angiography: 1. Fluoroscopy demonstrated calcification within the RCA, proximal LAD, proximal circumflex, and aortic arch. 2. Left main coronary artery: The LMCA was without significant CAD angiographically. 3. Left anterior descending: The LAD extends to the apex. Proximal LAD approximately 50% stenosis. Large septal wax bleacher approximately 60-70% ostial stenosis. Remainder of LAD without significant CAD. Large first diagonal vessel with lateral branch. No significant CAD within the diagonal vessel. 4. Circumflex: The circumflex is a large caliber vessel and tortuous. Mid circumflex 90%, JOSE D 3 flow. Large caliber OM1 without significant CAD. The 5. Right coronary artery: The RCA is large and dominant. Proximal RCA 90%. Mid RCA subtotal occlusion (99%). The PDA and posterior lateral branch filled via [id number] collaterals. 6. Ramus intermedius: Small caliber ramus intermedius with ostial/proximal 50- 60% stenosis. Left heart catheterization: 1. Left ventriculography was not performed to reduce contrast exposure given chronic kidney disease. 2. No significant aortic stenosis. 3. Slightly elevated LVEDP; 13mmHg, in the setting of IV hydration prior to the procedure. Sedation start time: 9:45 a.m. Sedation end time: 10:13 a.m. Procedural notes: 1. Procedures performed via the right radial artery without known complication. JL 3.5 and JR4 5 Kinyarwanda diagnostic catheters used to selectively engage the LMCA and RCA, respectively. Impression: 1. Severe CAD involving the mid circumflex and RCA with subtotal mid RCA and [id number] collaterals. 2. Moderate CAD involving the proximal LAD, ramus intermedius, and moderate to severe CAD involving the ostial septal wax bleacher. 3. No aortic stenosis. 4. No significant elevation in LVEDP (slightly elevated pressure in the setting of iatrogenic IV hydration). Plan: 1. Images were reviewed with Dr. Churchill of interventional Cardiology. Plan is to perform FFR of LAD. If LAD proximal stenosis is non severe, consideration for circumflex PCI. If LAD stenosis is significant, consideration for CT surgical evaluation. Hemodynamics Rest Ao: 161/46 mmHg Final Ao: 188/48 LV: 183/4/13 Recommendations management recommendations (FFR as above with possible Cx PCI) Specimens None Radiation Exposure (mGy) 664 mGy. Fluoro time 2.2 min. Contrast (mls) 45 ml Procedural Complication(s) None Disposition Manufacturing Job Titles Holding/Recovery ACC Data Cardiac Status Clinical evaluation leading to the procedure CAD Presntation: Positive Stress Test Anginal Classification: CCS III Heart Failure: No Cardiogenic Shock w/in 24Hrs: No Cardiac Arrest w/in 24Hrs: No Imaging studies past 6 months: No Stress studies past 6 months: Yes Standard Exercise Stress Test: Yes - Positive, Risk/Extent of Ischemia (High) Stress Echocardiogram: Yes - Positive, Risk/Extent of Ischemia (High) Stress Testing w/SPECT MPI: No Cardiac CTA: No Coronary Anatomy Dominant: Right Left Main (% Stenosis): Normal LAD (% Stenosis): Proximal (50) D1 (% Stenosis): Normal Circumflex (% Stenosis): Mid (90%) OM1 (% Stenosis): Normal RCA (% Stenosis): Proximal (90%), Mid (99%) R PDA (% Stenosis): Normal R PL1 (% Stenosis): Normal Ramus (% Stenosis): Ostial (50%) Left Ventricular Angiography EF (%): n/a Diagnostic Physician's Name: Fabien Vargas MD Status: Elective Closure Device Percutaneous Entry Location: Radial Closure Device: Radial Band (after completion of FFR or PCI. radial sheath was left in place for Dr. Churchill.) Recommendations: management recommendations (FFR with possible PCI)
[2017-08-21] MEDS ORDERED: ONDANSETRON INJ 2 MG/ML 2 ML VIAL ONE (11:27)
[2017-08-21] MEDS ORDERED: PROMETHAZINE HCL INJ 25 MG/ML 1 ML VIAL ONE (11:35)
[2017-08-21] MEDS ORDERED: CLOPIDOGREL BISULFATE 300 MG TAB PO ONE (11:41)
--- NOTE | 2017-08-21 11:58 | Procedure Note ---
Post-Mod Sedation Assessment General Date of Moderate Sedation Aug 21, 2017. Vital Signs: Vital Signs Past 12 Hours Date Time Temp Pulse Resp B/P (MAP) Pulse Ox O2 Delivery O2 Flow Rate FiO2 08/21/17 11:26 62 16 98/55 (69) 99 Mask 6 08/21/17 07:00 36.8 59 16 105/50 96 Room Air 174/49 Review - Discharge Criteria Vital Signs Stable: Yes Alert/Oriented/Conversant: Yes Returned to Baseline Mental St: Yes Nausea Absent/Minimal: Yes Pain/Discomfort/Absent/Minimal: Yes Normal/Baseline Respirations: Yes Active Bleeding?: No Pt Received D/C Instructions: N/A Prescriptions Given: None Specific Proced. D/C Criteria Distal Pulses Present (Cardiac: Yes Groin site assessed-Card Cath: N/A Voided Prior To Discharge: N/A Discharged Patients Adult Escort/Transportation: Yes
[2017-08-21] MEDS ORDERED: LORAZEPAM 0.5 MG TAB PO PRN (12:00)
[2017-08-21] MEDS ORDERED: SODIUM CHLORIDE 0.9% 1000ML 1,000 ML IV SCH (12:00)
[2017-08-21] MEDS ORDERED: NITROGLYCERIN 0.4 MG SL PER TAB CHARGE SL PRN (12:00)
[2017-08-21] MEDS ORDERED: ONDANSETRON INJ 2 MG/ML 2 ML VIAL IV PRN (12:00)
[2017-08-21] MEDS ORDERED: HYDROCODONE/ACETAMINOPHEN 7.5/325MG TAB PO PRN (12:00)
[2017-08-21] MEDS ORDERED: ACETAMINOPHEN 325 MG TAB PO PRN (12:00)
[2017-08-21] MEDS ORDERED: PROMETHAZINE HCL 25 MG SUPP PR PRN (12:00)
--- NOTE | 2017-08-21 12:16 | Cardiac Catheterization ---
Procedure Note Procedure Date Aug 21, 2017. Pre-Procedure Diagnosis Positive Stress Test AUC Score 7 Post-Procedure Diagnosis Severe CAD, Successful PCI Procedure(s) Performed Drug Eluting Stent It Audit Manager Zhao Kiln Transfer Operator(s) Glunt Estimated Blood Loss 25 Medication(s) Fentanyl, Heparin, Nicardipine, Nitroglycerin, Versed Summary of Findings Indication: Positive stress Access: 6Fr Right radial artery Catheters: EBU 3.5 guide Findings: For full details of patients coronary angiography please see cath report dictated by Dr. Vargas. Briefly patient found to have intermediate proximal LAD disease, severe focal mid circumflex disease and subtotally occluded mid RCA with left to right collaterals. -- FFR -- Proximal LAD -- 0.84 -- PCI -- Antithrombotic therapy: Heparin, Clopidogrel Procedure: LM cannulated with EBU 3.5 guide Attempted first with whisper wire and eventually passed mid circumflex lesion with Choice PT wire Mid LCx lesion predilated with 2.5 compliant balloon Dilated lesion stented with 2.5 x 14 Timothy Resolute ALIRIO Stent post-dilated with 2.5 noncompliant balloon IC vasodilators administered for spasm Post procedure JOSE D 3 flow, stent well expanded with minimal residual stenosis and no apparent cardiac complications. Arterial Closure: TR Band Summary: 1. Intermediate proximal LAD. Non-obstructive by FFR (0.84) 2. Successful PCI of mid circumflex with single ALIRIO (2.5 x 15 [place] ALIRIO) Recommendations: To PCU for continued monitoring Reloaded with 300mg Clopidogrel Continue dual-antiplatelet therapy for at least a year Continue statin, ASCVD risk factor modification per Dr. Vargas. Consult cardiac Rehab Hemodynamics Rest Ao: 161/46/84 Final Ao: 158/45/88 LV: 183/13 Recommendations PCI without planned CABG Specimens None Radiation Exposure (mGy) 3133 Contrast (mls) 135 Visi Fluids (cc crystalloids) 400 Drains None Anesthesia Moderate Procedural Complication(s) None Disposition PCU ACC Data Cardiac Status Clinical evaluation leading to the procedure CAD Presntation: Positive Stress Test Anginal Classification: CCS III Closure Device Percutaneous Entry Location: Femoral Closure Device: Radial Band Recommendations: PCI without planned CABG PCI Indication: + Stress Test Lesion Segment Name: mid circumflex Culprit Artery: No Stenosis Prior to Rx (%): 90 Chronic Total Occlusion: No IVUS: No FFR: No Pre-Procedure JOSE D Flow: 3 Previously Treated Lesion: No Lesion Complexity: Non-High/Non-C Lesion Length (mm): 10 Thrombus Present: No Bifurcation Lesion: Yes Guidewire Across Lesion: Yes Guidewire: Stenosis Post-Procedure (%): 0 Post-Procedure JOSE D Flow: 3 Device(s) Deployed: Yes Intraprocedure Events Significant Dissection: No Perforation: No
[2017-08-21] MEDS ORDERED: IV FLUIDS COMPLETED PRN (12:45)
[2017-08-21] MEDS ORDERED: INFLUENZA VIRUS QUAD VACCINE 0.5 ML SYR IM. ONE (13:45)
[2017-08-21] MEDS ORDERED: INFLUENZA ADMINISTRATION CHARGE ONE (13:45)
[2017-08-21] MEDS: VERAPAMIL HCL 120 MG TABCR PO SCH (20:28)
[2017-08-21] MEDS: TOPIRAMATE 25 MG TAB PO SCH (20:29)
[2017-08-21] MEDS: METOPROLOL TARTRATE 50 MG TAB PO SCH (20:34)
[2017-08-21] MEDS ORDERED: ATORVASTATIN 40 MG TAB PO SCH (21:00)
[2017-08-22 03:41] VITALS: BP 97/61; PULSE 61; TEMP 37; O2SAT 95
[2017-08-22 06:41] LABS: BASO % 0.7 %; BASO ABS # 0.05 K/uL (0-0.2); COMPLETE YES; EOS % 2.1 %; HEMATOCRIT 39.6 % (37-47); IG% 0.4 %; LYMPH % 22.9 %; LYMPH ABS # 1.66 K/uL (1.2-3.4); MEAN CELL VOLUME 94.3 fL (80-100); MEAN CORPUSCULAR HEMOGLOBIN 30.5 pg (25-34); MEAN CORPUSCULAR HGB CONC 32.3 g/dl (32-36); MEAN PLATELET VOLUME 10.1 fL (7.4-10.4); MONO % 11.2 %; NEUT % 62.7 %; PLATELET COUNT 212 K/uL (130-400); WHITE BLOOD COUNT 7.24 K/uL (4.8-10.8)
[2017-08-22 07:22] LABS: BUN/CREATININE RATIO 8.9 (10-20); CALCIUM 8.3 mg/dl (8.5-10.1); CREATININE 1.4 mg/dl (0.60-1.20); POTASSIUM 4.3 mmol/L (3.5-5.1)
[2017-08-22 07:52] VITALS: BP 130/70; PULSE 59; TEMP 36.6; O2SAT 95
[2017-08-22] MEDS: TOPIRAMATE 25 MG TAB PO SCH (08:22)
[2017-08-22] MEDS: VERAPAMIL HCL 120 MG TABCR PO SCH (08:22)
[2017-08-22] MEDS ORDERED: ASPIRIN 81 MG ECTAB PO SCH (09:00)
[2017-08-22] MEDS ORDERED: CLOPIDOGREL BISULFATE 75 MG TAB PO SCH (09:00)
[2017-08-22] MEDS ORDERED: ASPEC81 PO (09:22)
--- NOTE | 2017-08-22 09:23 | Discharge Instructions ---
Discharge Instructions Procedure Procedure Date: Aug 22, 2017. Reason for Visit: Positive Stress Test,*Alicia To Do*. Discharge Discharge Date: Aug 22, 2017. Discharge Diagnosis: CAD post stent Last Recorded Wt (Kilograms): 80.100 Anesthesia Post Anesthesia Instructions: If you have had General Anesthesia or IV Sedation: * Do not drive today. * Resume driving when surgeon permits. * Do not make important decisions or sign legal documents today. * Call surgeon for: 1. Temperature elevations greater than 101 degrees F. 2. Uncontrollable pain. 3. Excessive bleeding. 4. Persistent nausea and vomiting. 5. Medication intolerance (nausea, vomiting or rash). * For nausea and vomiting use only clear liquids such as: tea, soda, bouillon until nausea subsides, then gradually increase diet as tolerated. * If you have any concerns or questions, call your surgeon's office. If physician is unavailable and it is an emergency, call 911 or go to the nearest emergency room. Instructions Activity Recommendations: limitations as noted below Recommended Home Diet: resume previous diet, low cholesterol Allergies: Coded Allergies: Bupropion (Verified Allergy, Unknown, UNKNOWN, 09/20/16) Carbamazepine (Unverified Allergy, Unknown, UNKNOWN, 09/20/16) Codeine (Verified Allergy, Unknown, "TIGHTENS MUSCLES UP" PER PT, 09/20/16) Penicillins (Verified Allergy, Unknown, AMPICILLIN, 09/20/16) Sertraline (Unverified Allergy, Unknown, UNKNOWN, 09/20/16) Sulfa Antibiotics (Unverified Allergy, Unknown, HIVES, 09/23/16) Tetracycline (Verified Allergy, Unknown, 09/20/16) Venlafaxine (Unverified Allergy, Unknown, UNKNOWN, 09/20/16) Pork (Verified Adverse Reaction, Intermediate, VOMIT, 09/20/16) Chocolate (Verified Adverse Reaction, Mild, MIGRAINES, 09/20/16) [place] (Verified Adverse Reaction, Unknown, VIOLENT EMESIS, 09/20/16) Follow Up Additional Instructions: ACTIVITY RECOMMENDATIONS: It is common to feel weak and fatigue for a few days. * Do not drive or operate any motorized equipment for the next three days. * Limit stair usage (2 or 3 trips a day only) for the next three days. * Do not lift anything heavier than 10 pounds for the next three days. * Do not engage in vigorous exercise or any sports for the next five days. * You may shower the day after your procedure, but do not immerse the area for three days. Cleanse the site gently with soap and water. SPECIAL CARE INSTRUCTIONS: * You may replace the pressure dressing or band-aid the morning after the procedure. * After your procedure, it is normal to have a small bruise or small lump at the site. Examine your site daily for any change in the bruise or lump, redness, swelling, drainage or numbness. Notify your doctor if any change. BLEEDING: * If there is a small amount of bleeding at the site, lie down and apply firm pressure with a clean cloth for ten minutes. When the bleeding stops, lie quietly keeping the procedure limb straight for six hours. Notify your doctor as soon as possible. * If the bleeding does not stop after ten minutes or if there is a large amount of bleeding or spurting, call 911 immediately. Continue to lie down and hold firm pressure until help arrives. SKIN IRRITATION: * You may experience some redness and/or swelling in the area where radiation was administered. If any skin irritation occurs, please contact your family physician. FOLLOW UP VISIT: Keep any scheduled doctor appointments. Follow-up with: Follow-up with Dr. Vargas in 2-3 weeks. Steve Haddad Recommendations: Call your doctor if: * Temperature above 101 degrees * Pain not relieved by pain medicine ordered * There is increased drainage or redness from any incision * You have any unanswered questions or concerns. Your Doctors Instructions noted above were prepared by provider Juan C Churchill. Patient Signature Section: Patient Instructions Signature Page Светланаrahul Interiano Patient (or Guardian) Signature/Date: I have read and understand the instructions given to me by my caregivers. Caregiver/RN/Doctor Signature/Date: The above-named patient and/or guardian has received patient instructions on this date. + Original Patient Signature Page (only) stays with chart. Please make copy for patient.
[2017-08-22 09:45] VITALS: BP 130/70; PULSE 59; TEMP 36.6; O2SAT 95
[2017-08-22] MEDS: METOPROLOL TARTRATE 50 MG TAB PO SCH (10:01)
== END 2017-08-22 10:00 | disposition home or self-care (01) ==
LOC: C.CATH 06:08 → ENRESERV 11:02 → C.2T 12:17
PROVIDERS: ADMIT Internal Medicine Cardiovascular Disease; ATTEND Internal Medicine Cardiovascular Disease
DX: I25.10 Atherosclerotic heart disease of native coronary artery without angina pectoris (principal); R93.1 Abnormal findings on diagnostic imaging of heart and coronary circulation; I12.9 Hypertensive chronic kidney disease with stage 1 through stage 4 chronic kidney disease, or unspecified chronic kidney disease; E78.5 Hyperlipidemia, unspecified; I73.9 Peripheral vascular disease, unspecified; F31.9 Bipolar disorder, unspecified; Q07.00 Arnold-Chiari syndrome without spina bifida or hydrocephalus; N18.9 Chronic kidney disease, unspecified; Z79.02 Long term (current) use of antithrombotics/antiplatelets; Z79.899 Other long term (current) drug therapy; Z88.0 Allergy status to penicillin; Z88.2 Allergy status to sulfonamides; Z88.1 Allergy status to other antibiotic agents

== ENCOUNTER → 2017-08-23 | Outpatient (CLI) | payer OTHER, MEDICARE ==
[~2017-08-23] MED LIST changes: +ASPEC81 PO; +PROM1SUP19 PR
[2017-08-23 08:46] LABS: BLOOD UREA NITROGEN 11 mg/dl (7-18); BUN/CREATININE RATIO 7.7 (10-20); CARBON DIOXIDE 21 mmol/L (21-32); CHLORIDE 113 mmol/L (98-107); GLUCOSE 90 mg/dl (70-99); POTASSIUM 4.1 mmol/L (3.5-5.1); SODIUM 141 mmol/L (136-145)
== END | disposition home or self-care (01) ==
LOC: C.LAB 07:21
PROVIDERS: ATTEND Internal Medicine Cardiovascular Disease
DX: N28.9 Disorder of kidney and ureter, unspecified (principal)

== ENCOUNTER → 2017-09-06 | Outpatient (CLI) | payer OTHER, MEDICARE ==
[~2017-09-06] MED LIST changes: -ERGO1CAP41 PO; +ERGO500011 PO
[2017-09-06 08:33] LABS: BASO % 0.8 %; BASO ABS # 0.06 K/uL (0-0.2); COMPLETE YES; EOS % 2.5 %; HEMATOCRIT 44.7 % (37-47); IG% 0.4 %; LYMPH % 29.7 %; LYMPH ABS # 2.18 K/uL (1.2-3.4); MEAN CELL VOLUME 92.7 fL (80-100); MEAN CORPUSCULAR HEMOGLOBIN 29.9 pg (25-34); MEAN CORPUSCULAR HGB CONC 32.2 g/dl (32-36); MEAN PLATELET VOLUME 10.6 fL (7.4-10.4); MONO % 9.4 %; NEUT % 57.2 %; PLATELET COUNT 301 K/uL (130-400); RED BLOOD COUNT 4.82 M/uL (4.2-5.4); WHITE BLOOD COUNT 7.34 K/uL (4.8-10.8)
[2017-09-06 09:05] LABS: BLOOD UREA NITROGEN 23 mg/dl (7-18); CREATININE 1.54 mg/dl (0.60-1.20); GLUCOSE 78 mg/dl (70-99)
[2017-09-06 09:06] LABS: ALT/SGPT 14 U/L (12-78); BUN/CREATININE RATIO 14.7 (10-20); CALCIUM 8.9 mg/dl (8.5-10.1); CARBON DIOXIDE 24 mmol/L (21-32); CHLORIDE 109 mmol/L (98-107); CHOLESTEROL 139 mg/dl (0-200); SODIUM 138 mmol/L (136-145); TRIGLYCERIDES 176 mg/dl (0-150); VERY LOW DENSITY LIPOPROT CALC 35 mg/dl
[2017-09-06 09:16] LABS: ALB/GLOB RATIO 1.1 (0.9-2); ALKALINE PHOSPHATASE 83 U/L (45-117); AST/SGOT 9 U/L (15-37); CHOLESTEROL/HDL RATIO 3.2; HDL CHOLESTEROL 43 mg/dl; LDL CHOLESTEROL CALCULATED 61 mg/dl
[2017-09-06 09:29] LABS: ESTIMATED AVERAGE GLUCOSE 88 mg/dl; HA1C FLAG Normal (Normal)
== END | disposition home or self-care (01) ==
LOC: C.LAB 07:24
PROVIDERS: ATTEND Internal Medicine
DX: E78.5 Hyperlipidemia, unspecified (principal); I10 Essential (primary) hypertension; R73.9 Hyperglycemia, unspecified

== ENCOUNTER → 2017-11-01 | Outpatient (CLI) | payer OTHER, MEDICARE ==
[~2017-11-01] MED LIST changes: -FOLI1TAB7 PO; +FOLI1TAB8 PO
[2017-11-01 10:18] LABS: BLOOD UREA NITROGEN 16 mg/dl (7-18); CREATININE 1.46 mg/dl (0.60-1.20)
== END | disposition home or self-care (01) ==
LOC: C.LAB 09:04
PROVIDERS: ATTEND Psychiatry & Neurology Neurology
DX: Z00.00 Encounter for general adult medical examination without abnormal findings (principal); N18.3 Chronic kidney disease, stage 3 (moderate)

== ENCOUNTER → 2017-11-04 | Outpatient (CLI) | payer OTHER, MEDICARE ==
[~2017-11-04] MED LIST changes: +GADAVIST IV PRN
--- NOTE | 2017-11-04 07:41 | DIAGNOSTIC IMAGING REPORT ---
MRI OF THE BRAIN WITHOUT AND WITH IV CONTRAST CLINICAL HISTORY: I67.9 Cerebrovascular [id number] Cognitive [id number] right arm weakness COMPARISON STUDY: Head CT dated 05/26/2017, MRI the brain dated 06/23/2015 TECHNIQUE: MRI of the brain was performed from the vertex to the skull base utilizing various T1 and T2 weighted sequences. Following the IV administration of 7.5 mL of Gadavist contrast, additional enhanced images were obtained. FINDINGS: Sagittal T1, axial diffusion, proton density and T2 weighted axial, coronal FLAIR, and pre and post axial T1-weighted images were acquired. These were supplemented with post gadolinium coronal T1 weighted images. No intra or extra-axial mass lesions are visualized. 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 Axial diffusion-weighted images reveal no evidence of acute or subacute infarction. There is no evidence of ventricular dilatation. Proton density T2-weighted and FLAIR images reveal slight progression in the scattered foci of increased T2 signal within the white matter, likely on a small vessel basis. There are also foci of increased T2 and FLAIR signal within the aquiles. There are no abnormal flow voids. There is no evidence of pathologic enhancement. IMPRESSION: 1. No acute intracranial findings 2. No evidence of intracranial mass 3. No evidence of acute or subacute infarction 4. Slight progression in the scattered foci of increased T2 signal within the white matter, likely on a small vessel basis Electronically signed by: Dom Luther M.D. 11/04/2017 7:40 AM Dictated Date/Time: 11/04/2017 7:36 AM
== END | disposition home or self-care (01) ==
LOC: C.MRI 06:39
PROVIDERS: ATTEND Psychiatry & Neurology Neurology
DX: I67.9 Cerebrovascular disease, unspecified (principal); F09 Unspecified mental disorder due to known physiological condition; R53.1 Weakness

== ENCOUNTER → 2018-03-19 | Outpatient (CLI) | payer OTHER, MEDICARE ==
[~2018-03-19] MED LIST changes: -ASPEC81 PO; +ASPI-320 PO; -GADAVIST IV PRN
[2018-03-19 09:52] LABS: ALBUMIN 3.5 gm/dl (3.4-5.0); ALT/SGPT 16 U/L (12-78); BLOOD UREA NITROGEN 19 mg/dl (7-18); CALCIUM 8.8 mg/dl (8.5-10.1); CARBON DIOXIDE 25 mmol/L (21-32); CREATININE 1.36 mg/dl (0.60-1.20); GLUCOSE 78 mg/dl (70-99); POTASSIUM 3.7 mmol/L (3.5-5.1); SODIUM 136 mmol/L (136-145)
[2018-03-19 10:05] LABS: AST/SGOT 12 U/L (15-37); CHOLESTEROL 128 mg/dl (0-200); LDL CHOLESTEROL CALCULATED 57 mg/dl; PHOSPHORUS 3.6 mg/dl (2.5-4.9)
[2018-03-19 10:09] LABS: HEMOGLOBIN A1C 4.9 % (4.5-5.6)
== END | disposition home or self-care (01) ==
LOC: C.LAB 07:07
PROVIDERS: ATTEND Internal Medicine Nephrology
DX: E78.5 Hyperlipidemia, unspecified (principal); I12.9 Hypertensive chronic kidney disease with stage 1 through stage 4 chronic kidney disease, or unspecified chronic kidney disease; N18.3 Chronic kidney disease, stage 3 (moderate); E55.9 Vitamin D deficiency, unspecified; R73.03 Prediabetes; E87.1 Hypo-osmolality and hyponatremia

== ENCOUNTER 2019-09-08 10:35 | Inpatient (IN) ==
--- NOTE | 2019-08-27 15:37 | PAT Medication Instructions ---
Medication Instructions Date of Service August 27, 2019 Home Medications Medication Instructions Recorded hydralazine 100 mg tablet 100 mg PO TID #90 tab 07/28/19 lorazepam 0.5 mg tablet 0.5 mg PO BID PRN #60 tab 08/23/19 nebivolol 20 mg tablet 20 mg PO QAM #90 tab 08/23/19 aspirin 81 mg PO QAM atorvastatin 40 mg PO PM clopidogrel [Plavix] 75 mg PO QAM ergocalciferol (vitamin D2) 50,000 unit PO WK folic acid 1 mg PO QPM furosemide 20 mg PO QAM hydrocodone-acetaminophen [[place]] 1 tab PO BID PRN lisinopril 40 mg PO QAM tizanidine 2 mg PO TID PRN topiramate 50 mg PO BID verapamil 120 mg PO BID vitamin B complex 1 tab PO QPM erenumab-aooe 140 mg/mL subcutaneous auto-injector 140 mg SQ MONTHLY promethazine 25 mg tablet 25 mg PO BID PRN hydralazine 100 mg tablet 100 mg PO TID lorazepam 0.5 mg tablet 0.5 mg PO BID PRN nebivolol 20 mg tablet 20 mg PO QAM ASK your prescriber and surgeon aspirin 81 mg PO QAM clopidogrel [Plavix] 75 mg PO QAM erenumab-aooe 140 mg/mL subcutaneous auto-injector 140 mg SQ MONTHLY DO NOT take the morning of surgery ergocalciferol (vitamin D2) 50,000 unit PO WK furosemide 20 mg PO QAM lisinopril 40 mg PO QAM tizanidine 2 mg PO TID PRN promethazine 25 mg tablet 25 mg PO BID PRN Take morning of surgery With a small sip of water, OTHERWISE NOTHING TO EAT OR DRINK AFTER MIDNIGHT: hydrocodone-acetaminophen [[place]] 1 tab PO BID PRN (okay to take up to 4 hours prior to surgery if needed) topiramate 50 mg PO BID verapamil 120 mg PO BID promethazine 25 mg tablet 25 mg PO BID PRN (if needed) hydralazine 100 mg tablet 100 mg PO TID lorazepam 0.5 mg tablet 0.5 mg PO BID PRN (if needed) nebivolol 20 mg tablet 20 mg PO QAM Take evening before surgery atorvastatin 40 mg PO PM folic acid 1 mg PO QPM hydrocodone-acetaminophen [[place]] 1 tab PO BID PRN (if needed) tizanidine 2 mg PO TID PRN (if needed) topiramate 50 mg PO BID verapamil 120 mg PO BID vitamin B complex 1 tab PO QPM promethazine 25 mg tablet 25 mg PO BID PRN (if needed) hydralazine 100 mg tablet 100 mg PO TID lorazepam 0.5 mg tablet 0.5 mg PO BID PRN (if needed) Other Notes If you have any questions please call us at [phone] or [phone] or [phone] or [phone]
--- NOTE | 2019-08-30 08:47 | Anesthesiology Consultation ---
Date of Service August 30, 2019 Assessment & Plan (1) Encounter for pre-operative examination: - Cardiology: 08/25/19: Aware of upcoming carotid surgery: "She does have CAD but is asymptomatic in this regard despite being able to achieve at least 4 Mets. Her cardiac risk for upcoming surgery is acceptable (low to intermediate). Remain on aspirin 81 mg daily indefinitely throughout the perioperative period less absolutely contraindicated." Patient continuing on ASA perioperatively and will hold Plavix 2 days prior to surgery per surgeon recommendations. - Neurology: 08/26/19: Hx multiple concussions with right sided weakness defici t. Chronic cognitive disorder- "stable." Migraines improved. - LUE restriction: per patient, ? hx subclavian stenosis (no stenosis noted on 07/2019 Neck MRA). BP 108/52 on the right and 102/50 on the left at 05/27/19 vascular office visit. Chart Review Chart Review: Pending: Refer to Additional Notes / Consult section (pending preop testing (labs, CXR)) and Patient seen in Pre Admission Testing Teaching & Discussion Pre-Anesthesia Teaching/Discussion Notes: Instructed NPO after midnight before surgery,except medications with 15 cc of water. Medication instructions provided according to the PAT guidelines. History Surgery Operation Date: 09/08/19 07:15 Proposed Procedures p Left Carotid Endarterectomy - Giancarlo Ruffin MD Height/Weight Height: 5 ft 3.75 in Weight: 58.8 kg Allergies Allergy/AdvReac Type Severity Reaction Status Date / Time MAINE Inhibitors Allergy Unknown Unknown Verified 08/26/19 10:59 amoxicillin [From Amoxil] Allergy Unknown Unknown Verified 08/26/19 10:59 bupropion Allergy Unknown Unknown Verified 08/30/19 08:58 carbamazepine Allergy Unknown Unknown Verified 08/30/19 08:58 codeine Allergy Unknown Muscle Verified 08/30/19 08:58 "tightening" hydrochlorothiazide Allergy Unknown Unknown Verified 08/26/19 10:59 metronidazole [From Flagyl] Allergy Unknown Unkown Verified 08/30/19 08:58 Penicillins Allergy Unknown Ampicillin- Verified 08/30/19 08:58 Unknown reaction sertraline Allergy Unknown Unknown Verified 08/30/19 08:58 reaction Sulfa (Sulfonamide Allergy Unknown Hives Verified 08/30/19 08:58 Antibiotics) venlafaxine Allergy Unknown Unknown Verified 08/30/19 08:58 lithium AdvReac Severe Vomiting Verified 08/30/19 08:58 (severe) chocolate flavor AdvReac Mild Migraines Verified 08/30/19 08:58 tetracycline AdvReac Unknown Hallucinati Verified 08/30/19 08:58 on Pork AdvReac Intermediate Vomiting Uncoded 08/30/19 08:58 Medications Home Medications Medication Instructions Recorded Confirmed Last Taken aspirin 81 mg PO QAM 03/06/19 08/26/19 03/06/19 atorvastatin 40 mg PO PM 03/06/19 08/26/19 Unknown clopidogrel [Plavix] 75 mg PO QAM 03/06/19 08/26/19 03/06/19 ergocalciferol (vitamin D2) 50,000 unit PO WK 03/06/19 08/26/19 Unknown folic acid 1 mg PO QPM 03/06/19 08/26/19 03/06/19 furosemide 20 mg PO QAM 03/06/19 08/26/19 03/06/19 hydrocodone-acetaminophen [[place]] 1 tab PO BID PRN 03/06/19 08/26/19 Unknown lisinopril 40 mg PO QAM 03/06/19 08/26/19 03/06/19 tizanidine 2 mg PO TID PRN 03/06/19 08/26/19 Unknown topiramate 50 mg PO BID 03/06/19 08/26/19 03/06/19 verapamil 120 mg PO BID 03/06/19 08/26/19 03/06/19 vitamin B complex 1 tab PO QPM 03/06/19 08/26/19 Unknown erenumab-aooe 140 mg/mL 140 mg SQ MONTHLY ml 06/29/19 08/26/19 Unknown subcutaneous auto-injector promethazine 25 mg tablet 25 mg PO BID PRN #60 tab 06/29/19 08/26/19 Unknown hydralazine 100 mg tablet 100 mg PO TID #90 tab 07/28/19 08/26/19 Unknown lorazepam 0.5 mg tablet 0.5 mg PO BID PRN #60 tab 08/23/19 08/26/19 Unknown nebivolol 20 mg tablet 20 mg PO QAM #90 tab 08/23/19 08/26/19 Unknown Past Medical History Medical History Internal carotid artery stenosis Subclavian artery stenosis Renal artery stenosis s/p right renal stent (now with left sided renal atrophy) Patent foramen ovale cardio monitoring Common migraine without aura Chronic kidney disease, stage III (moderate) s/p right renal stent for renal artery stenosis (now with right sided renal atrophy)- follows with [facility] nephrology Cervical radiculopathy at C8 Bipolar I disorder, single manic episode 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 seen by neurosurgeon/follows with neurology- discussed surgery but felt that risk>benefit so decision made to monitor Hypertension Peripheral vascular disease Chronic migraine Coronary artery disease ALIRIO x 1 to mid CX (2017) Hyperlipidemia Exercise / Class Metabolic Activity III < 4 Walking/Shop/Light housework (uses cane PRN) Past Family History Family History Grandmother (Maternal) FHx: diabetes mellitus Son FHx: diabetes mellitus Past Surgical History Surgical History History of cardiac cath 2017- stent x 1 History of kidney surgery STENT INSERTION History of right oophorectomy Hx of appendectomy Hx of colonoscopy Hx of tonsillectomy Hx of tubal ligation Past Anesthesia History No Hx of Anesthesia Complications and No Family Hx of Anesthesia Complications History of PONV No Hx of PONV and No Hx of Motion Sickness Social History Smoking Status: Current some day smoker Smoking cigarettes per day: intermittent when "stress" Do You Dip or Chew Tobacco: No Hx Alcohol Use: Yes Alcohol type: wine alcohol intake frequency: holidays/special occasions only Hx Substance Use: No Review of Systems Patient denies chest pain, shortness of breath, cough, wheezing, palpitations. Physical Exam Vital Signs VITALS BP 180/61 (132/62 manual recheck on right) P 52 TEMP 98.1 SP02 99%RA RESP 16 PHYSICAL Full neck and c-spine range of motion. Full TMJ range of motion. TMD 2.5 finger breaths Mallampati Score 2 Dentition: full dentures upper/lower Lungs: clear throughout to auscultation Cardiac: regular rate and rhythm, II-III/ systolic murmur Spine: b/l bruit Carotid arteries: negative bruit Extremities: no edema Testing Electrocardiogram Date: 03/06/19 SB at 56bpm. Minimal voltage criteria for LVH, may be normal variant. Echocardiogram Date: 06/22/13 EF 65-70%. Moderate cLVH. Grade I DD. No PFO of ASD visualized (no bubble study performed). No RWMA. No significant valvular disease. Stress Test Date: 08/04/17 Abnormal stress ECHO at 64% MPHR. Short atrial runs. Poor exercise toleratnce. Possible ischemic disease or hypertensive response. EF >70%. Mild cLVH. Type I DD. Mild MR. *Subsequent cardiac cath with ALIRIO x 1 to mid CX done* Cardiac Catheterization Date: 08/21/17 Intermediate proximal LAD. Successful PCI of mid CX with ALIRIO x 1. Other Testing Neck MRA: 06/04/19: Visualized portions of the thoracic aorta are normal in c aliber. The aortic arch demonstrates standard 3-vessel anatomy. The subclavian arteries are widely patent bilaterally. The right common carotid artery is patent, as are the right internal and external carotid arteries. There is atherosclerotic plaque and irregularity seen throughout the right carotid system. No significant stenosis is identified. There is approximately 75% stenosis at the origin of the left internal carotid artery. This is similar to prior studies. No significant stenosis is identified within the right carotid arterial system. The vertebral arteries are patent. Brain MRI: 11/04/17: No acute intracranial findings. No evidence of intracranial mass. No evidence of acute or subacute infarction. Slight progression in the scattered foci of increased T2 signal within the white matter, likely on a small vessel basis.
--- NOTE | 2019-08-30 09:43 | XRay Report ---
XR chest Pre-admission PA/Lat CLINICAL HISTORY: pat preoperative evaluation COMPARISON STUDY: 03/06/2019 FINDINGS: The bones soft tissues and hemidiaphragms are normal. The cardiomediastinal silhouette is n ormal. The lungs are clear. The pulmonary vasculature is normal. IMPRESSION: Negative chest. The above report was generated using voice recognition software. It may contain grammatical, syntax or spelling errors. Electronically signed by: Chino Patel M.D. 08/30/2019 9:42 AM
[2019-08-30 09:45] LABS: Basophils # (auto) 0.05 K/uL (0-0.2); Eosinophils # (auto) 0.11 K/uL (0-0.5); Eosinophils % (auto) 2.2 %; Hemoglobin 14.6 g/dL (12.0-16.0); Immature Granulocytes # (auto) 0.01 K/uL (0.00-0.02); Immature Granulocytes % (auto) 0.2 %; Lymphocytes # (auto) 1.89 K/uL (1.2-3.4); Mean Corpuscular Hemoglobin 31.1 pg (25-34); Mean Corpuscular Hgb Conc 33.2 g/dL (32-36); Mean Corpuscular Volume 93.8 fL (80-100); Monocytes # (auto) 0.38 K/uL (0.11-0.59); Monocytes % (auto) 7.6 %; Neutrophils # (auto) 2.53 K/uL (1.4-6.5); Platelet Count 222 K/uL (130-400); RDW Coefficient of Variation 14.3 % (11.5-14.5); RDW Standard Deviation 48.8 fL (36.4-46.3); Red Blood Count 4.69 M/uL (4.2-5.4); White Blood Count 4.97 K/uL (4.8-10.8)
[2019-08-30 09:56] LABS: Partial Thromboplastin Ratio 1.1; Partial Thromboplastin Time 29.6 Seconds (21.0-31.0); Prothrombin Time 10.1 Seconds (9.0-12.0)
[2019-08-30 10:54] LABS: BUN Creatinine Ratio 10.7 (10-20); Calcium 8.7 mg/dl (8.5-10.1); Creatinine Clr Calc Pharmacy 39.8 ml/min; Est GFR (African American) 54.2; Est GFR (Non-African American) 46.8; Potassium 3.6 mmol/L (3.5-5.1)
--- NOTE | 2019-09-08 07:00 | History & Physical Report ---
Date of Service September 08, 2019 Assessment & Plan (1) Internal carotid artery stenosis: Patient admitted for a left carotid endarterectomy. I have discussed the risks options and benefits of the procedure with the patient. The patient understands the risks options and benefits and agrees to the procedure. History of Present Illness Chief Complaint: Left carotid stenosis Primary Care Provider: Cortes Espinosa MD Ms. Interiano is a pleasant 64-year-old woman with an extensive history of peripheral vascular disease whom we are seeing today for discussion regarding her bilateral carotid artery stenosis. She was last seen in our clinic in early June following completion of an MRA of her carotid arteries. This demonstrated high-grade stenosis of approximately 90% on the left side. At that time, we discussed intervention for this. However, she elected to wait to sort out some personal matters following the of her mother. Since we saw her, she reports no symptoms concerning for TIA including unilateral weakness, numbness, or paralysis, word-finding difficulty, facial droop, or signs of amaurosis fugax. She states this time she is ready to proceed with the operation and would like it scheduled in late August. She plans on seeing her yard pipe grader in the next week to obtain cardiac clearance. Allergies Allergy/AdvReac Type Severity Reaction Status Date / Time MAINE Inhibitors Allergy Unknown Unknown Verified 08/26/19 10:59 amoxicillin [From Amoxil] Allergy Unknown Unknown Verified 08/26/19 10:59 bupropion Allergy Unknown Unknown Verified 08/30/19 08:58 carbamazepine Allergy Unknown Unknown Verified 08/30/19 08:58 codeine Allergy Unknown Muscle Verified 08/30/19 08:58 "tightening" hydrochlorothiazide Allergy Unknown Unknown Verified 08/26/19 10:59 metronidazole [From Flagyl] Allergy Unknown Unkown Verified 08/30/19 08:58 Penicillins Allergy Unknown Ampicillin- Verified 08/30/19 08:58 Unknown reaction sertraline Allergy Unknown Unknown Verified 08/30/19 08:58 reaction Sulfa (Sulfonamide Allergy Unknown Hives Verified 08/30/19 08:58 Antibiotics) venlafaxine Allergy Unknown Unknown Verified 08/30/19 08:58 lithium AdvReac Severe Vomiting Verified 08/30/19 08:58 (severe) chocolate flavor AdvReac Mild Migraines Verified 08/30/19 08:58 tetracycline AdvReac Unknown Hallucinati Verified 08/30/19 08:58 on Pork AdvReac Intermediate Vomiting Uncoded 08/30/19 08:58 Home Medications Home Medications Medication Instructions Recorded Confirmed Type aspirin 81 mg PO QAM 03/06/19 08/26/19 History atorvastatin 40 mg PO PM 03/06/19 08/26/19 History clopidogrel [Plavix] 75 mg PO QAM 03/06/19 08/26/19 History ergocalciferol (vitamin D2) 50,000 unit PO WK 03/06/19 08/26/19 History folic acid 1 mg PO QPM 03/06/19 08/26/19 History furosemide 20 mg PO QAM 03/06/19 08/26/19 History hydrocodone-acetaminophen [[place]] 1 tab PO BID PRN 03/06/19 08/26/19 History lisinopril 40 mg PO QAM 03/06/19 08/26/19 History tizanidine 2 mg PO TID PRN 03/06/19 08/26/19 History topiramate 50 mg PO BID 03/06/19 08/26/19 History verapamil 120 mg PO BID 03/06/19 08/26/19 History vitamin B complex 1 tab PO QPM 03/06/19 08/26/19 History erenumab-aooe 140 mg/mL 140 mg SQ MONTHLY ml 06/29/19 08/26/19 History subcutaneous auto-injector promethazine 25 mg tablet 25 mg PO BID PRN #60 tab 06/29/19 08/26/19 History hydralazine 100 mg tablet 100 mg PO TID #90 tab 07/28/19 08/26/19 Rx lorazepam 0.5 mg tablet 0.5 mg PO BID PRN #60 tab 08/23/19 08/26/19 Rx nebivolol 20 mg tablet 20 mg PO QAM #90 tab 08/23/19 08/26/19 Rx Past Med/Surg History Medical History Internal carotid artery stenosis Subclavian artery stenosis Renal artery stenosis s/p right renal stent (now with left sided renal atrophy) Patent foramen ovale cardio monitoring Common migraine without aura Chronic kidney disease, stage III (moderate) s/p right renal stent for renal artery stenosis (now with right sided renal atrophy)- follows with [facility]rology Cervical radiculopathy at C8 Bipolar I disorder, single manic episode 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 seen by neurosurgeon/follows with neurology- discussed surgery but felt that risk>benefit so decision made to monitor Hypertension Peripheral vascular disease Chronic migraine Coronary artery disease ALIRIO x 1 to mid CX (2017) Hyperlipidemia Surgical History History of cardiac cath 2017- stent x 1 History of kidney surgery STENT INSERTION History of right oophorectomy Hx of appendectomy Hx of colonoscopy Hx of tonsillectomy Hx of tubal ligation Family History Grandmother (Maternal) FHx: diabetes mellitus Son FHx: diabetes mellitus Social History Preferred Language: Iranian Communication Ability: Effective Beliefs That Will Affect Care: None Current Living Situation: Spouse current occupational status: retired Feels Safe at Home: Yes Safety Concerns: Feels Safe At This Time Smoking Status: Current some day smoker Cigarettes Per Day: intermittent when "stress" ; Do You Dip or Chew Tobacco: No ; Second Hand Exposure: Yes ; Hx Alcohol Use: Yes Alcohol type: wine Hx Substance Use: No Review of Systems All systems reviewed & are unremarkable except as noted in HPI & below Physical Exam Physical Exam: On examination today, she appears well, in no acute distress. She is afebrile. She has a blood pressure 162/64 with a heart rate of 53, and saturating 98% on room air. She has 2+ carotid pulses bilaterally. She has no evidence of focal neuro deficits. Remainder exam is unconcerning. Trachea is midline. Lungs are clear. Cor has a RRR. Abdominal exam is benign. Femoral pulses are +2.
[~2019-09-08 10:35] MED LIST changes: -ASPI-320 PO; -ATOR-24 PO; -B-COTAB18 PO; -CLOP1TAB5 PO; -ERGO500011 PO; -FOLI1TAB8 PO; -HYDR-3983 PO; -HYDR-4717 PO; -LISI40TA PO; -LORA-741 PO; +LR 15ML/HR IV SCH; -LSX20 PO; -NEBI20TA2 PO; -PROM1SUP19 PR; -TIZA2CAP PO; -TOPI50TA24 PO; -VERA120C2 PO
[2019-09-08] MEDS ORDERED: ONDANSETRON INJ 2 MG/ML 2 ML VIAL ONE ×2 (10:36→12:56)
[2019-09-08] MEDS ORDERED: ROCURONIUM BROMIDE 10 MG/ML 5 ML VIAL ONE (10:36)
[2019-09-08] MEDS ORDERED: fentaNYL citrate 100 MCG/2 ML VIAL ONE (10:36)
[2019-09-08] MEDS ORDERED: PROPOFOL IV EMULSION 10 MG/ML 20 ML VIAL IV ONE (10:36)
[2019-09-08] MEDS ORDERED: LIDOCAINE HCL 2% 2 ML VIAL/AMP(20MG/ML) INFIL ONE (10:36)
[2019-09-08] MEDS ORDERED: MIDAZOLAM HCL 1 MG/ML 2ML VIAL ONE (10:36)
[2019-09-08] MEDS ORDERED: LABETALOL HCL IV 5 MG/ML 20ML IV PRN (10:45)
[2019-09-08] MEDS ORDERED: MEPERIDINE HCL 25 MG/ML CARP IV PRN (10:45)
[2019-09-08] MEDS ORDERED: ATROPINE SULFATE 0.1 MG/ML 10ML SYR IV PRN (10:45)
[2019-09-08] MEDS ORDERED: ePHEDrine sulfate 50 MG/ML AMP IV PRN (10:45)
[2019-09-08] MEDS ORDERED: PHENYLEPHRINE 100MCG/ML 5ML SYR IV PRN (10:45)
[2019-09-08] MEDS ORDERED: ONDANSETRON INJ 2 MG/ML 2 ML VIAL IV PRN (10:45)
[2019-09-08] MEDS ORDERED: CEFAZOLIN 250 MG/ML 1 GM VIAL ONE (12:24)
[2019-09-08] MEDS ORDERED: LIDOCAINE HCL 1% 20 ML VIAL ONE (12:24)
[2019-09-08] MEDS ORDERED: HEPARIN (PORCINE) 1000 UNIT/ML 10 ML (CATH LAB USE ONLY) ONE (12:24)
[2019-09-08] MEDS ORDERED: GELATIN SPONGE SZ 100 ONE (12:24)
[2019-09-08] MEDS ORDERED: BUPIVACAINE/EPINEPHRINE 0.5% MPF 1:200,000 30 ML VIAL ONE (12:24)
[2019-09-08] MEDS ORDERED: THROMBIN FOR SOLN 20000 UNIT KIT ONE (12:24)
--- NOTE | 2019-09-08 12:34 | History & Physical Bridge Note ---
Date of Service September 08, 2019 History & Physical Bridge Note I have examined the patient, reviewed the History & Physical and in the interval since the performance of the History & Physical I have noted the following changes of clinical significance: no changes noted
[2019-09-08] MEDS: CLINDAMYCIN 600 MG/54 ML BAG IV SCH ×2 (12:44→23:27)
[2019-09-08] MEDS ORDERED: ePHEDrine sulfate 50 MG/ML SYR ONE (12:56)
[2019-09-08] MEDS ORDERED: DEXAMETHASONE SOD INJ 4 MG/ML VIAL ONE (13:10)
[2019-09-08] MEDS ORDERED: BACITRACIN INJ 50,000 UNIT VIAL ONE (13:54)
[2019-09-08] MEDS ORDERED: NEOSTIGMINE METHYLSULFATE 5 MG/5 ML SYR ONE (14:35)
[2019-09-08] MEDS ORDERED: GLYCOPYRROLATE 0.2 MG/ML VIAL ONE (14:35)
--- NOTE | 2019-09-08 14:52 | Operative Report ---
Post Operative Report Pre & Post Diagnosis Operation Date: 09/08/19 12:10 Pre-Op Diagnosis: Left Carotid Stenosis Post-Op Diagnosis: Left Carotid Stenosis I identified the patient and participated in the time-out.: Yes Procedure Operation Date: 09/08/19 12:10 Actual Procedures p Left Carotid Endarterectomy with Patch Angioplasty(Left) - Giancarlo Ruffin MD Surgeon MD Dr. Augustin Vasques Collection Technician Jessy Day Estimated Blood Loss 20 Findings See Below Patient had a severely stenotic ulcerated plaque in the left carotid artery. Fluids 700cc cryst Specimens Left carotid plaque Drains None Anesthesia Type General Complications none Disposition Accompanied Patient To Recovery: Yes Disposition: Recovery Room Indications Left carotid artery severe stenosis. Description of Procedure The patient was brought to the operating room and correctly identified, where an arterial line was placed and general anesthesia was secured. The left neck was prepped and sterilely draped. An oblique incision was made along the anterior border of the right sternocleidomastoid muscle. The platysma was divided and dissection was carried down to the carotid sheath. The facial vein was doubly ligated and divided exposing the carotid bifurcation. The vagus nerve and XII nerve were identified and kept free from dissection and retraction. The internal, external, and common carotid arteries were dissected free proximally and distally. 5000 U of Heparin was given intravenously. The external carotid as well as superior thyroid vessels were encircled with vessel loops. Once the heparin was allowed to circulate for approximately 5 minutes, clamps were placed starting with the internal carotid followed by the common carotid and external carotid. An anterior arteriotomy was made on the common carotid artery using an 11 blade. Juarez scissors was used to extend the arteriotomy through the plaque on to the distal soft internal carotid artery. The plaque was heavily calcified, ulcerated, and nearly occlusive. A shunt was then inserted into the into the internal carotid artery and revealed good backbleeding. The proximal end of the shunt was then inserted into the common carotid artery and secured in place. The Doppler attached to the shunt was turned on and revealed good flow through the shunt. A Benton elevator was used to create an endarterectomy plane. The proximal endpoint was created using Juarez scissors as well as a distal endpoint was created with the Juarez scissors. The plaque was freed out of the external carotid artery.With downward retraction on the plaque, a smooth distal endpoint was created. All debris was meticulously debrided from the inside of the lumen and confirmed with instillation of heparinized saline. A 7-0 [address] was used to place 1 tacking sutures at the posterior wall of the internal carotid artery. Once endarterectomy was completed, a a bovine pericardial patch was then cut to the appropriate size and sewn into internal carotid artery using a 6-0 Prolene sutures starting at the internal carotid artery corner of the arteriotomy. Before the patch was completed, the shunt was pulled and all the arteries were backbleed extruding any air and debris. The patch was then completed. The external carotid clamp was removed first, followed by the common carotid artery clamp, and finally the internal carotid artery clamp, restoring blood flow to the brain. Thrombin soaked gel foam was used to establish hemostasis. Meticulous hemostasis was secured. The wound was then closed in multiple layers using 3-0 Vicryl suture then a 4-0 Vicryl subcutaneous layer closing the skin. Dermabond was applied over the incision. The patient tolerated the procedure well and was extubated on table. The patient was moving all four extremities to command prior to and upon transfer to the recovery room. Dr. Ruffin was scrubbed and present for the entirety of the case. I attest to the content of the Intraoperative Record and any orders documented therein. Any exceptions are noted below.
--- NOTE | 2019-09-08 14:59 | Post Operative Brief Note ---
Immediate Post Op Note v1 Date of Surgery September 08, 2019 Pre & Post Diagnosis Operation Date: 09/08/19 12:10 Pre-Op Diagnosis: Left Carotid Stenosis Post-Op Diagnosis: Left Carotid Stenosis I identified the patient and participated in the time-out.: Yes Procedure Operation Date: 09/08/19 12:10 Actual Procedures p Left Carotid Endarterectomy with Patch Angioplasty(Left) - Giancarlo Ruffin MD Surgeon Giancarlo Ruffin MD Adult Specialist MD Jessy Funk,PAC Estimated Blood Loss 20 Findings Consistent with Post-Op Diagnosis Anesthesia Type General Complications none Disposition Accompanied Patient To Recovery: No Disposition: Recovery Room
[2019-09-08] MEDS: fentaNYL citrate 100 MCG/2 ML VIAL IV PRN ×3 (15:25→15:57)
[2019-09-08] MEDS ORDERED: PROMETHAZINE HCL 6.25 MG in SODIUM CHLORIDE 0.9% 50 ML IV PRN (15:47)
--- NOTE | 2019-09-08 15:55 | Critical Care Consultation ---
Date of Consultation September 08, 2019 Assessment & Plan (1) Admitted to intensive care unit: Reason critically ill: 64yo female with PMHx significant for left internal carotid stenosis, peripheral vascular disease, CAD s/p stent placement in 2017, CKD Stage III with renal artery stenosis s/p stent placement in right renal artery, patent foramen ovale and HTN who is being monitored in the ICU after undergoing a L carotid endarterectomy. Neuro: -pain meds per primary team for headache and other pain -q4 neuro checks -Hx of migraines- continue home meds per primary team CV Hx of left internal carotid stenosis, PVD, CAD s/p stent placement in 2017, PFO and HTN Internal carotid artery stenosis -Neck MRA from May- 75% stenosis in left IC -s/p L carotid endarterectomy done on 09/08 -continue to monitor for post-op complications (hematoma, SOB, sings of infection etc) -continue aspirin, Plavix and statin administration HTN -Currently hypertensive; management per primary team -Continue lisinopril, bystolic, hydralizine per primary team CAD -s/p diluting stent placement in L circumflex in 2017 -continue aspirin, plavix and statin PVD -continue statin administration Pulmonary -continue supplemental O2 administration; wean as tolerated. -continue to monitor for need Renal/ -Hx of CKD, renal artery stenosis with right stent placement -Currently at baseline Cr -will continue to monitor postop GI -diet ordered per primary team -Zofran for nausea with phenergan also ordered per primary team Endocrine -ICU protocol for hyperglycemia Lines: PIV DVT prophylaxis: SCDs CODE Status: Dispo: ICU for postop monitoring Supervising Physician Co-Signing Physician Notes Dr. Pearce was the resident-physician during care of patient. I separately eval uated patient for mcgill portions of the history and the exam. I was present during the critical portion of medical decision making, and I discussed the case with the resident. I generally agree with the findings and plan except for any additions/exceptions noted. Patient is hypertensive post procedure. She does have a history of baseline severe hypertension with renal artery stenosis and is currently on numerous blood pressure medications. Will defer management to Dr. Ruffin. She has very severe baseline vasculopathy. He indicated that he is comfortable with a blood pressure of 160-180 systolics. Patient also has some nausea postprocedure. She is getting Zofran as needed. She did have some left shoulder pain. We obtained an EKG and a troponin. We will follow-up on this. Defer chronic issues to Dr. Ruffin. History of Present Illness Attending Physician: Giancarlo Ruffin MD History of Present Illness 64yo female with PMHx significant for left internal carotid stenosis, peripheral vascular disease, CAD s/p stent placement in 2017, CKD Stage III with renal artery stenosis s/p stent placement in right renal artery, patent foramen ovale and HTN who is being monitored in the ICU after undergoing a L carotid endarterectomy. States she has a headache, is nauseated, has left shoulder pain and pain in her left neck in the area of her surgery. Denies any changes to vision, cough, runny nose, sore throat, SOB, chest pain, palpitations, abd pain, emesis episodes, diarrhea or constipation, swelling in hands or feet or numbness or tingling. Allergies Allergy/AdvReac Type Severity Reaction Status Date / Time MAINE Inhibitors Allergy Unknown Unknown Verified 09/08/19 10:59 amoxicillin [From Amoxil] Allergy Unknown Unknown Verified 09/08/19 10:59 bupropion Allergy Unknown Unknown Verified 09/08/19 10:59 carbamazepine Allergy Unknown Unknown Verified 09/08/19 10:59 codeine Allergy Unknown Muscle Verified 09/08/19 10:59 "tightening" hydrochlorothiazide Allergy Unknown Unknown Verified 09/08/19 10:59 metronidazole [From Flagyl] Allergy Unknown Unkown Verified 09/08/19 10:59 Penicillins Allergy Unknown Ampicillin- Verified 09/08/19 10:59 Unknown reaction sertraline Allergy Unknown Unknown Verified 09/08/19 10:59 reaction Sulfa (Sulfonamide Allergy Unknown Hives Verified 09/08/19 10:59 Antibiotics) venlafaxine Allergy Unknown Unknown Verified 09/08/19 10:59 lithium AdvReac Severe Vomiting Verified 09/08/19 10:59 (severe) chocolate flavor AdvReac Mild Migraines Verified 09/08/19 10:59 tetracycline AdvReac Unknown Hallucinati Verified 09/08/19 10:59 on Pork AdvReac Intermediate Vomiting Uncoded 09/08/19 10:59 Home Medications Home Medications Medication Instructions Recorded Confirmed Type aspirin 81 mg PO QAM 03/06/19 09/08/19 History atorvastatin 40 mg PO PM 03/06/19 09/08/19 History clopidogrel [Plavix] 75 mg PO QAM 03/06/19 09/08/19 History ergocalciferol (vitamin D2) 50,000 unit PO WK 03/06/19 09/08/19 History folic acid 1 mg PO QPM 03/06/19 09/08/19 History furosemide 20 mg PO QAM 03/06/19 09/08/19 History hydrocodone-acetaminophen [[place]] 1 tab PO BID PRN 03/06/19 09/08/19 History lisinopril 40 mg PO QAM 03/06/19 09/08/19 History tizanidine 2 mg PO TID PRN 03/06/19 09/08/19 History topiramate [Topamax] 50 mg PO BID 03/06/19 09/08/19 History verapamil 120 mg PO BID 03/06/19 09/08/19 History vitamin B complex 1 tab PO QPM 03/06/19 09/08/19 History erenumab-aooe 140 mg/mL 140 mg SQ MONTHLY ml 06/29/19 09/08/19 History subcutaneous auto-injector promethazine 25 mg tablet 25 mg PO BID PRN #60 tab 06/29/19 09/08/19 History hydralazine 100 mg tablet 100 mg PO TID #90 tab 07/28/19 09/08/19 Rx lorazepam 0.5 mg tablet 0.5 mg PO BID PRN #60 tab 08/23/19 09/08/19 Rx nebivolol 20 mg tablet 20 mg PO QAM #90 tab 08/23/19 09/08/19 Rx Patient History Family History Grandmother (Maternal) FHx: diabetes mellitus Son FHx: diabetes mellitus Social History Preferred Language: Estonian Communication Ability: Effective Beliefs That Will Affect Care: None Current Living Situation: Spouse current occupational status: retired Feels Safe at Home: Yes Safety Concerns: Feels Safe At This Time Smoking Status: Current some day smoker Cigarettes Per Day: intermittent when "stress" ; Do You Dip or Chew Tobacco: No ; Second Hand Exposure: Yes ; Hx Alcohol Use: Yes Alcohol type: wine Hx Substance Use: No Review of Systems Review of Systems: All systems reviewed & are unremarkable except as noted in HPI & below Physical Exam Physical Exam: General: Alert, orientedx3. Uncomfortable and nauseated. Skin: Closed surgical incision on left neck without redness or drainage noted. Psych: Appropriate mood and affect Neuro: No gross deficits, CN II-XII grossly intact currently. HEENT: NC/AT Chest: Nontender to palpation. CV: RRR, Normal s1, s2. Blowing murmur appreciated. No crackles/rhonchi/rales. Abdomen: Soft, nontender, nondistended. No guarding. No organomegaly appreciated. Extremities: No edema in lower extremities bilaterally. MSK: able to move all extremities appropriately. Results & Data Vital Signs (Past 12 Hours) Vital Signs Temp Pulse Pulse Resp BP BP BP 09/08/19 15:30 59 L 15 165/55 H 175/70 H 09/08/19 15:20 64 21 183/57 H 196/83 H 09/08/19 15:14 36.3 C L 66 15 193/62 H 09/08/19 11:04 36.8 C 55 L 18 197/54 H Pulse Ox 09/08/19 15:30 94 09/08/19 15:20 97 09/08/19 15:14 96 09/08/19 11:04 99 PG Care Time/CCT Total # of Minutes Spent Total Time Spent with Patient: Total time spent is greater than 50% in coordination of care (as documented) at patient's floor/unit and/or counseling patient: Resident Activity Tracking Resident Involvement: Resident Care Provided Care Provided: Adult Hospital Medicine
--- NOTE | 2019-09-08 16:20 | Anesthesiology Progress Note ---
Date of Service September 08, 2019 Anesthesia Post Procedure Vital Signs Vital Signs: Temp Pulse Pulse Resp BP BP BP 09/08/19 16:10 36.5 C 57 L 21 167/36 H 181/56 H 09/08/19 16:00 54 L 14 164/36 H 175/47 H 09/08/19 15:55 61 20 169/67 H 167/50 H 09/08/19 15:50 58 L 15 172/39 H 188/49 H 09/08/19 15:40 59 L 14 174/39 H 199/47 H 09/08/19 15:30 59 L 15 165/55 H 175/70 H 09/08/19 15:20 64 21 183/57 H 196/83 H 09/08/19 15:14 36.3 C L 66 15 193/62 H 09/08/19 11:04 36.8 C 55 L 18 197/54 H Pulse Ox 09/08/19 16:10 94 09/08/19 16:00 95 09/08/19 15:55 95 09/08/19 15:50 95 09/08/19 15:40 94 09/08/19 15:30 94 09/08/19 15:20 97 09/08/19 15:14 96 09/08/19 11:04 99 Pain Intensity Left Head: Pain Intensity: 4 Left Neck: Pain Intensity: 4 Transfer of Care Handoff Completed per policy Notes Mental Status: alert / awake / arousable and participated in evaluation Patient Amnestic to Procedure: Yes Nausea / Vomiting: improving with treatment Pain: adequately controlled Airway Patency, RR, SpO2: stable & adequate BP & HR: stable & adequate Hydration State: stable & adequate Anesthetic Complications: no major complications apparent and Pt Satisfied with anesthetic care
[2019-09-08] MEDS ORDERED: TIZANIDINE HCL 4 MG TABLET PO PRN (16:57)
[2019-09-08] MEDS: ONDANSETRON INJ 2 MG/ML 2 ML VIAL IV PRN (17:06)
[2019-09-08] MEDS: D5W AND 1/2NSS 1,000 ML IV SCH (17:19)
[2019-09-08] MEDS: MoRPHine SULFATE 4 MG/ML 1 ML CARP\\VIAL IV PRN ×2 (18:16→19:44)
[2019-09-08] MEDS: CLINDAMYCIN 600 MG in DEXTROSE 5% 50 ML IV SCH (19:54)
[2019-09-08] MEDS: HydrALAZINE TAB 50 MG TAB PO SCH (20:00)
[2019-09-08] MEDS: VERAPAMIL HCL 120 MG TABCR PO SCH (20:00)
[2019-09-08] MEDS: TOPIRAMATE 50 MG TAB PO SCH (20:02)
[2019-09-08] MEDS: ATORVASTATIN 40 MG TAB PO SCH (20:04)
[2019-09-08] MEDS: VITAMIN B COMPLEX TAB PO SCH (20:05)
[2019-09-08] MEDS: FOLIC ACID 1 MG TAB PO SCH (20:05)
[2019-09-08] MEDS ORDERED: NITROGLYCERIN/D5W 100 MCG/ML BTL ONE (21:52)
[2019-09-08] MEDS: NITROGLYCERIN/D5W 100MCG/ML 250 ML IV SCH ×2 (23:00→23:27)
[2019-09-09] MEDS ORDERED: HydrALAZINE HCL 20 MG/ML VIAL IV ONE (00:05)
[2019-09-09] MEDS: PROMETHAZINE HCL 25 MG TAB PO PRN ×2 (01:26→13:23)
[2019-09-09] MEDS: D5W AND 1/2NSS 1,000 ML IV SCH ×2 (01:26→10:12)
[2019-09-09] MEDS: MoRPHine SULFATE 4 MG/ML 1 ML CARP\\VIAL IV PRN (01:30)
[2019-09-09] MEDS: CLINDAMYCIN 600 MG in DEXTROSE 5% 50 ML IV SCH (02:52)
[2019-09-09] MEDS ORDERED: HydrALAZINE HCL 20 MG/ML VIAL IV STA (03:55)
[2019-09-09 04:47] LABS: Basophils # (auto) 0.02 K/uL (0-0.2); Basophils % (auto) 0.2 %; Hematocrit (blood only) 36.3 % (37-47); Hemoglobin 12.1 g/dL (12.0-16.0); Immature Granulocytes # (auto) 0.03 K/uL (0.00-0.02); Immature Granulocytes % (auto) 0.2 %; Lymphocytes # (auto) 1.34 K/uL (1.2-3.4); Lymphocytes % (auto) 11.1 %; Mean Corpuscular Hemoglobin 30.9 pg (25-34); Mean Corpuscular Hgb Conc 33.3 g/dL (32-36); Mean Corpuscular Volume 92.8 fL (80-100); Mean Platelet Volume 10.4 fL (7.4-10.4); Monocytes # (auto) 1.22 K/uL (0.11-0.59); Monocytes % (auto) 10.1 %; Neutrophils # (auto) 9.45 K/uL (1.4-6.5); Neutrophils % (auto) 78.4 %; Platelet Count 220 K/uL (130-400); RDW Coefficient of Variation 14.5 % (11.5-14.5); RDW Standard Deviation 49.4 fL (36.4-46.3); Red Blood Count 3.91 M/uL (4.2-5.4); White Blood Count 12.06 K/uL (4.8-10.8)
[2019-09-09] MEDS ORDERED: LABETALOL HCL IV 5 MG/ML 20ML IV STA ×2 (04:49→07:04)
[2019-09-09 05:11] LABS: BUN Creatinine Ratio 13.5 (10-20); Calcium 7.8 mg/dl (8.5-10.1); Creatinine Clr Calc Pharmacy 44.4 ml/min; Est GFR (African American) 64.3; Est GFR (Non-African American) 55.4; Magnesium 1.8 mg/dl (1.8-2.4); Potassium 3.2 mmol/L (3.5-5.1)
[2019-09-09] MEDS: NITROGLYCERIN/D5W 100MCG/ML 250 ML IV SCH (06:10)
--- NOTE | 2019-09-09 08:07 | Anesthesiology Progress Note ---
Date of Service September 09, 2019 Anesthesia Post Procedure Vital Signs Vital Signs: Temp Pulse Pulse Pulse Resp BP BP 09/09/19 07:00 36.7 C 64 12 127/61 09/09/19 06:00 67 19 09/09/19 05:45 63 14 09/09/19 05:30 61 11 L 09/09/19 05:15 67 12 09/09/19 05:00 64 15 09/09/19 04:45 70 21 09/09/19 04:30 09/09/19 04:15 65 20 09/09/19 04:00 36.7 C 71 12 09/09/19 03:45 64 12 09/09/19 03:30 61 14 09/09/19 03:15 64 15 09/09/19 03:00 63 13 09/09/19 02:45 62 19 09/09/19 02:30 64 16 09/09/19 02:15 60 11 L 09/09/19 02:00 62 13 09/09/19 01:45 62 14 09/09/19 01:30 65 16 09/09/19 01:15 67 13 09/09/19 01:00 64 13 09/09/19 00:45 68 16 09/09/19 00:30 62 12 09/09/19 00:15 61 13 09/09/19 00:00 36.6 C 71 13 09/08/19 23:45 70 19 09/08/19 23:30 62 12 09/08/19 23:15 61 11 L 09/08/19 22:51 65 19 200/68 H 09/08/19 22:45 65 17 09/08/19 22:30 64 12 09/08/19 22:15 62 12 09/08/19 22:00 65 16 09/08/19 21:45 60 12 09/08/19 21:30 59 L 11 L 09/08/19 21:15 61 12 09/08/19 21:00 60 10 L 177/48 H 09/08/19 20:45 57 L 13 09/08/19 20:30 58 L 11 L 09/08/19 20:15 65 22 09/08/19 20:00 57 L 12 168/50 H 09/08/19 19:45 61 19 09/08/19 19:30 56 L 20 09/08/19 19:15 59 L 17 09/08/19 19:00 55 L 14 179/47 H 09/08/19 18:45 62 14 09/08/19 18:30 55 L 13 09/08/19 18:15 56 L 14 09/08/19 18:00 36.6 C 54 L 13 164/41 H 09/08/19 17:45 57 L 18 09/08/19 17:30 36.5 C 59 L 18 09/08/19 17:15 55 L 16 09/08/19 17:00 36.6 C 58 L 19 185/54 H 09/08/19 16:57 60 09/08/19 16:51 59 L 17 09/08/19 16:50 36.6 C 57 L 14 170/54 H 09/08/19 16:30 54 L 16 09/08/19 16:20 53 L 13 09/08/19 16:10 36.5 C 57 L 21 09/08/19 16:00 54 L 14 09/08/19 15:55 61 20 09/08/19 15:50 58 L 15 09/08/19 15:40 59 L 14 09/08/19 15:30 59 L 15 09/08/19 15:20 64 21 09/08/19 15:14 36.3 C L 66 15 09/08/19 11:04 36.8 C 55 L 18 197/54 H BP BP Pulse Ox 09/09/19 07:00 93 09/09/19 06:00 92 09/09/19 05:45 94 09/09/19 05:30 93 09/09/19 05:15 92 09/09/19 05:00 92 09/09/19 04:45 93 09/09/19 04:30 91 09/09/19 04:15 93 09/09/19 04:00 92 09/09/19 03:45 93 09/09/19 03:30 92 09/09/19 03:15 94 09/09/19 03:00 92 09/09/19 02:45 93 09/09/19 02:30 92 09/09/19 02:15 93 09/09/19 02:00 92 09/09/19 01:45 92 09/09/19 01:30 94 09/09/19 01:15 92 09/09/19 01:00 94 09/09/19 00:45 94 09/09/19 00:30 93 09/09/19 00:15 95 09/09/19 00:00 92 09/08/19 23:45 95 09/08/19 23:30 92 09/08/19 23:15 91 09/08/19 22:51 95 09/08/19 22:45 94 09/08/19 22:30 93 09/08/19 22:15 95 09/08/19 22:00 95 09/08/19 21:45 95 09/08/19 21:30 96 09/08/19 21:15 96 09/08/19 21:00 95 09/08/19 20:45 94 09/08/19 20:30 94 09/08/19 20:15 96 09/08/19 20:00 93 09/08/19 19:45 98 09/08/19 19:30 97 09/08/19 19:15 97 09/08/19 19:00 94 09/08/19 18:45 97 09/08/19 18:30 93 09/08/19 18:15 93 09/08/19 18:00 92 09/08/19 17:45 96 09/08/19 17:30 95 09/08/19 17:15 94 09/08/19 17:00 98 09/08/19 16:57 09/08/19 16:51 97 09/08/19 16:50 98 09/08/19 16:30 176/52 H 96 09/08/19 16:20 167/37 H 171/66 H 96 09/08/19 16:10 167/36 H 181/56 H 94 09/08/19 16:00 164/36 H 175/47 H 95 09/08/19 15:55 169/67 H 167/50 H 95 09/08/19 15:50 172/39 H 188/49 H 95 09/08/19 15:40 174/39 H 199/47 H 94 09/08/19 15:30 165/55 H 175/70 H 94 09/08/19 15:20 183/57 H 196/83 H 97 09/08/19 15:14 193/62 H 96 09/08/19 11:04 99 Pain Intensity Left Head: Pain Intensity: 4 Left Neck: Pain Intensity: 8 Left Shoulder: Pain Intensity: 8 Notes Mental Status: alert / awake / arousable Patient Amnestic to Procedure: Yes Nausea / Vomiting: adequately controlled Pain: adequately controlled Airway Patency, RR, SpO2: stable & adequate BP & HR: stable & adequate Hydration State: stable & adequate Anesthetic Complications: no major complications apparent and Pt Satisfied with anesthetic care
[2019-09-09] MEDS ORDERED: POTASSIUM CHLORIDE 20 MEQ TABCR PO STA (08:08)
--- NOTE | 2019-09-09 08:45 | Critical Care Progress Note ---
Date of Service September 09, 2019 Assessment & Plan (1) Admitted to intensive care unit: Reason critically ill: 64yo female with PMHx significant for left internal carotid stenosis, peripheral vascular disease, CAD s/p stent placement in 2017, CKD Stage III with renal artery stenosis s/p stent placement in right renal artery, patent foramen ovale and HTN who is being monitored in the ICU after undergoing a L carotid endarterectomy. Neuro: -pain meds per primary team for headache and other pain -q4 neuro checks -Hx of migraines- continue home meds per primary team CV Hx of left internal carotid stenosis, PVD, CAD s/p stent placement in 2017, PFO and HTN Internal carotid artery stenosis -Neck MRA from May- 75% stenosis in left IC, more recent outside records with progressive stenosis -s/p L carotid endarterectomy done on 09/08 -continue to monitor for post-op complications (hematoma, SOB, signs of infection etc) -continue aspirin, Plavix and statin administration HTN -Currently hypertensive; management per primary team -Currently on nitroglycerin drip, prn labetatol ordered for SBP limit per primary team. -switched to nicardipine. -Continue lisinopril, bystolic, hydralizine per primary team CAD -s/p diluting stent placement in L circumflex in 2017 -continue aspirin, plavix and statin PVD -continue statin administration Pulmonary -currently on room air, doing well -continue to monitor for need Renal/ -Hx of CKD, renal artery stenosis with right stent placement -Currently at baseline Cr -will continue to monitor postop GI -diet ordered per primary team -Zofran for nausea with phenergan also ordered per primary team Endocrine -ICU protocol for hyperglycemia Lines: PIV DVT prophylaxis: SCDs CODE Status: Dispo: ICU for postop monitoring, stable for downgrade Supervising Physician Co-Signing Physician Notes Dr. Pearce was the resident-physician during care of patient. I separately evaluated patient for mcgill portions of the history and the exam. I was present during the critical portion of medical decision making, and I discussed the case with the resident. I generally agree with the findings and plan except for any additions/exceptions noted. Patient continues to do well after her endarterectomy. She does still have some mild nausea. Her headache is still present but improved. She has no focal neurological signs. We are weaning off the nitroglycerin. She still continues to be hypertensive based on the art line and her noninvasive blood pressure cuff on the right arm. Her leg noninvasive blood pressure is much lower but this is much less reliable given her vasculopathy. Continue to titrate her blood pressure off her art line. We are switching her to nicardipine. We will continue her home antihypertensives. Rest of care per Dr. Ruffin. I have personally spent 33 minutes of critical care time in the direct management of this patient. This is a life/limb threatening event. This includes time spent evaluating patient, direct bedside care, chart review, placing orders, interpretation of diagnostic studies, discussion with consultants, patient, and/or family members regarding treatment decisions, as well as other required patient management activities. This time is exclusive of all separately billable procedures, and teaching time and separate from and in addition to any other critical care service time. Subjective Ms. Interiano states she had a bad headache overnight, also associated with nausea and an episode of emesis this AM. Believes it is likely related to her Hx of migraines, but admits it can also be related to the nitroglycerin drip. Also requesting her home Vicodin for use here in the hospital for pain relief. Denies fevers, chills, night sweats, chest pain, SOB, palpitations, abd pain, diarrhea, constipation, numbness or tingling in hands or feet. Review of Systems Review of Systems: All systems reviewed & are unremarkable except as noted in HPI & below Physical Exam Physical Exam: General: Alert, orientedx3. Skin: Closed surgical incision on left neck without redness or drainage noted. Psych: Appropriate mood and affect Neuro: No gross deficits, CN II-XII grossly intact currently. HEENT: NC/AT Chest: Nontender to palpation. CV: RRR, Normal s1, s2. Blowing murmur appreciated. Resp: Breath sounds clear but decreased on back. Abdomen: Soft, nontender, nondistended. No guarding. No organomegaly appreciated. Extremities: No edema in lower extremities bilaterally. MSK: able to move all extremities appropriately, strength appropriate bilaterally. Results & Data Vital Signs (Past 12 Hours) Vital Signs Temp Pulse Resp BP Pulse Ox 09/09/19 07:00 36.7 C 64 12 127/61 93 09/09/19 06:00 67 19 92 09/09/19 05:45 63 14 94 09/09/19 05:30 61 11 L 93 09/09/19 05:15 67 12 92 09/09/19 05:00 64 15 92 09/09/19 04:45 70 21 93 09/09/19 04:30 91 09/09/19 04:15 65 20 93 09/09/19 04:00 36.7 C 71 12 92 09/09/19 03:45 64 12 93 09/09/19 03:30 61 14 92 09/09/19 03:15 64 15 94 09/09/19 03:00 63 13 92 09/09/19 02:45 62 19 93 09/09/19 02:30 64 16 92 09/09/19 02:15 60 11 L 93 09/09/19 02:00 62 13 92 09/09/19 01:45 62 14 92 09/09/19 01:30 65 16 94 09/09/19 01:15 67 13 92 09/09/19 01:00 64 13 94 09/09/19 00:45 68 16 94 09/09/19 00:30 62 12 93 09/09/19 00:15 61 13 95 09/09/19 00:00 36.6 C 71 13 92 09/08/19 23:45 70 19 95 09/08/19 23:30 62 12 92 09/08/19 23:15 61 11 L 91 09/08/19 22:51 65 19 200/68 H 95 09/08/19 22:45 65 17 94 09/08/19 22:30 64 12 93 09/08/19 22:15 62 12 95 09/08/19 22:00 65 16 95 09/08/19 21:45 60 12 95 09/08/19 21:30 59 L 11 L 96 09/08/19 21:15 61 12 96 09/08/19 21:00 60 10 L 177/48 H 95 09/08/19 20:45 57 L 13 94 Laboratory Results Laboratory Results - last 24 hr 09/08/19 09/08/19 09/08/19 16:50 17:13 18:22 WBC RBC Hgb Hct MCV MCH MCHC RDW Std Deviation RDW Coeff of Shiva Plt Count MPV Immature Gran % (Auto) Neut % (Auto) Lymph % (Auto) Spink % (Auto) Eos % (Auto) Baso % (Auto) Immature Gran # (Auto) Neut # (Auto) Lymph # (Auto) Spink # (Auto) Eos # (Auto) Baso # (Auto) Sodium Potassium Chloride Carbon Dioxide Anion Gap BUN Creatinine Est Cr Clr Drug Dosing Est GFR ( Amer) Est GFR (Non-Af Amer) BUN/Creatinine Ratio Glucose POC Glucose 133 H Calcium Magnesium Troponin I 0.019 Nasal Screen MRSA (PCR) Negative 09/09/19 09/09/19 09/09/19 04:35 04:35 04:50 WBC 12.06 H RBC 3.91 L Hgb 12.1 Hct 36.3 L MCV 92.8 MCH 30.9 MCHC 33.3 RDW Std Deviation 49.4 H RDW Coeff of Shiva 14.5 Plt Count 220 MPV 10.4 Immature Gran % (Auto) 0.2 Neut % (Auto) 78.4 Lymph % (Auto) 11.1 Spink % (Auto) 10.1 Eos % (Auto) 0.0 Baso % (Auto) 0.2 Immature Gran # (Auto) 0.03 H Neut # (Auto) 9.45 H Lymph # (Auto) 1.34 Spink # (Auto) 1.22 H Eos # (Auto) 0.00 Baso # (Auto) 0.02 Sodium 136 Potassium 3.2 L Chloride 110 H Carbon Dioxide 19 L Anion Gap 7.0 BUN 14 Creatinine 1.06 Est Cr Clr Drug Dosing 44.4 Est GFR ( Amer) 64.3 Est GFR (Non-Af Amer) 55.4 BUN/Creatinine Ratio 13.5 Glucose 160 H POC Glucose Calcium 7.8 L Magnesium 1.8 Troponin I Nasal Screen MRSA (PCR) Negative Medications Administered Home Medications aspirin 81 mg PO QAM 03/06/19 [History Confirmed 09/08/19] atorvastatin 40 mg PO PM 03/06/19 [History Confirmed 09/08/19] clopidogrel [Plavix] 75 mg PO QAM 03/06/19 [History Confirmed 09/08/19] ergocalciferol (vitamin D2) 50,000 unit PO WK 03/06/19 [History Confirmed 09/08/19] folic acid 1 mg PO QPM 03/06/19 [History Confirmed 09/08/19] furosemide 20 mg PO QAM 03/06/19 [History Confirmed 09/08/19] hydrocodone-acetaminophen [[place]] 1 tab PO BID PRN 03/06/19 [History Confirmed 09/08/19] lisinopril 40 mg PO QAM 03/06/19 [History Confirmed 09/08/19] tizanidine 2 mg PO TID PRN 03/06/19 [History Confirmed 09/08/19] topiramate [Topamax] 50 mg PO BID 03/06/19 [History Confirmed 09/08/19] verapamil 120 mg PO BID 03/06/19 [History Confirmed 09/08/19] vitamin B complex 1 tab PO QPM 03/06/19 [History Confirmed 09/08/19] erenumab-aooe 140 mg/mL subcutaneous auto-injector 140 mg SQ MONTHLY ml 06/29/19 [History Confirmed 09/08/19] promethazine 25 mg tablet 25 mg PO BID PRN #60 tab 06/29/19 [History Confirmed 09/08/19] hydralazine 100 mg tablet 100 mg PO TID #90 tab 07/28/19 [Rx Confirmed 09/08/19] lorazepam 0.5 mg tablet 0.5 mg PO BID PRN #60 tab 08/23/19 [Rx Confirmed ] nebivolol 20 mg tablet 20 mg PO QAM #90 tab 08/23/19 [Rx Confirmed 09/08/19] Active Medications Hydrocodone Bitart/Acetaminophen ([place] 5/325) 1 - 2 tab PO Q4H PRN PRN Reason: Moderate Pain Stop: 09/22/19 16:56 Aspirin (Ecotrin Ectab) 81 mg PO QAM JOE Stop: 10/09/19 08:59 Atorvastatin Calcium (Lipitor) 40 mg PO PM [facility] Stop: 10/08/19 20:59 Last Admin: 09/08/19 20:04 Dose: 40 mg Documented by: Clopidogrel Bisulfate (Plavix) 75 mg PO QAM [facility] Stop: 10/09/19 08:59 Ergocalciferol (Vitamin D2) 50,000 units PO Valdovinos@0900 [facility] Stop: 10/12/19 08:59 Folic Acid (Folvite) 1 mg PO QPM JOE Stop: 10/08/19 20:59 Last Admin: 09/08/19 20:05 Dose: 1 mg Documented by: Furosemide (Lasix) 20 mg PO QAM [facility] Stop: 10/09/19 08:59 Hydralazine HCl (Apresoline) 100 mg PO TID [facility] Stop: 10/08/19 20:59 Last Admin: 09/08/19 20:00 Dose: 100 mg Documented by: Dextrose/Sodium Chloride (D5w And 1/2nss) 1,000 mls @ 125 mls/hr IV .Q8H [facility] Stop: 10/08/19 17:09 Last Admin: 09/09/19 01:26 Dose: 125 mls/hr Documented by: Nitroglycerin/Dextrose (Nitroglycerin/D5w 100 Mcg/Ml) 250 mls @ 54 mls/hr IV .Q4H38M [facility]; Protocol Stop: 10/08/19 22:14 Last Titration: 09/09/19 08:02 Dose: 90 mcg/min, 54 mls/hr Documented by: Lisinopril (Zestril) 40 mg PO QAM [facility] Stop: 10/09/19 08:59 Lorazepam (Ativan) 0.5 mg PO BID PRN PRN Reason: Anxiety Stop: 10/08/19 16:56 Miscellaneous (Order Awaiting Action) 1 ea N/A QS [facility] Stop: 10/11/19 00:00 Morphine Sulfate (Morphine Sulfate) 1 - 4 mg IV Q2H PRN PRN Reason: Severe Pain Stop: 09/22/19 16:56 Last Admin: 09/09/19 01:30 Dose: 4 mg Documented by: Nebivolol (Bystolic) 20 mg PO QAM [facility] Stop: 10/09/19 08:59 Ondansetron HCl (Zofran) 4 mg IV ONE PRN PRN Reason: Nausea And Vomiting Stop: 10/08/19 16:56 Last Admin: 09/08/19 17:06 Dose: 4 mg Documented by: Promethazine HCl (Phenergan) 25 mg PO BID PRN PRN Reason: Nausea And Vomiting Stop: 10/08/19 16:56 Last Admin: 09/09/19 01:26 Dose: 25 mg Documented by: Tizanidine HCl (Zanaflex) 2 mg PO TID PRN PRN Reason: Muscle Spasm Stop: 10/08/19 16:56 Topiramate (Topamax) 50 mg PO BID [facility] Stop: 10/08/19 20:59 Last Admin: 09/08/19 20:02 Dose: 50 mg Documented by: Verapamil HCl (Calan Sr) 120 mg PO BID JOE Stop: 10/08/19 20:59 Last Admin: 09/08/19 20:00 Dose: 120 mg Documented by: Vitamin B Complex (Vitamin B Complex) 1 tab PO QPM JOE Stop: 10/08/19 20:59 Last Admin: 09/08/19 20:05 Dose: 1 tab Documented by: PG Care Time/CCT Total # of Minutes Spent Total Time Spent with Patient: Total time spent is greater than 50% in coordination of care (as documented) at patient's floor/unit and/or counseling patient: Critical Care Time: Yes Total Critical Care Time: 33 Resident Activity Tracking Resident Involvement: Resident Care Provided Care Provided: Adult Hospital Medicine
[2019-09-09] MEDS: LISINOPRIL 40 MG TAB PO SCH (08:58)
[2019-09-09] MEDS: FUROSEMIDE 20 MG TAB PO SCH (08:59)
[2019-09-09] MEDS: ASPIRIN 81 MG ECTAB PO SCH (08:59)
[2019-09-09] MEDS: CLOPIDOGREL BISULFATE 75 MG TAB PO SCH (08:59)
[2019-09-09] MEDS: NEBIVOLOL HCL 5 MG TAB PO SCH (09:00)
[2019-09-09] MEDS: TOPIRAMATE 50 MG TAB PO SCH ×2 (09:01→20:17)
[2019-09-09] MEDS: VERAPAMIL HCL 120 MG TABCR PO SCH ×2 (09:01→20:19)
[2019-09-09] MEDS: HydrALAZINE TAB 50 MG TAB PO SCH ×3 (09:01→20:20)
[2019-09-09] MEDS: HYDROCODONE/ACETAMOPHEN 5/325MG TAB PO PRN ×2 (09:14→13:23)
[2019-09-09] MEDS: ONDANSETRON INJ 2 MG/ML 2 ML VIAL IV PRN (09:14)
[2019-09-09] MEDS ORDERED: ONDANSETRON INJ 2 MG/ML 2 ML VIAL IV PRN (09:42)
--- NOTE | 2019-09-09 13:28 | Surgery Progress Note ---
Date of Service September 09, 2019 Assessment & Plan (1) Internal carotid artery stenosis: 1. We will obtain EKG to rule out any cardiac event with the patient's nausea and vomiting will rule out any abnormal presentation of a cardiac event. 2. The patient reports that she responds well to Vicodin so we will switch her to Vicodin for pain control this is regarding her headache. 3. With the patient's headache there is concern for hyperperfusion syndrome following carotid endarterectomy. The patient is already on Topamax and antiseizure medication and will continue that. We will continue to monitor and perform neuro exams. 4. With regards to her hypertension the patient is now on all of her home medications for hypertension and we are on a Cardene drip. We will continue to wean the Cardene drip as patient is able to tolerate. Present on Admission?: Yes Subjective Patient reports that she is been having a headache that has been persistent since that she awoke from surgery. She reports that she has a history of headaches and migraines and she usually takes Vicodin at home And that works well for her. The patient also reports that she has been having some nausea and vomiting today and she reports that she does not have any shortness of breath or chest pain. Review of Systems Eyes: no blind spots Cardiovascular: no chest pain, no lightheadedness and no syncope Gastrointestinal: + nausea and + vomiting Neurologic: + headache(s); no tingling, no numbness and no dizziness Patient reports that she has some right-handed weakness but that is part of her baseline. Physical Exam Constitutional: WD/WN, vitals as above (Patient has been hypertensive and is on a nicardipine drip now due to her h) well developed and well nourished Patient appears to be in mild distress after her episode of vomiting. Eyes: PERRL, conjunctivae normal, anicteric sclerae normal visual fernández by confrontation and PERRL ENMT: Mouth: no tongue abnormality Neck: trachea midline, no thyromegaly Patient has a small hematoma in the left neck. There are some ecchymosis at the base of the neck. Respiratory: normal respiratory effort, lungs clear to auscultation Cardiovascular: RRR, no murmur, no edema Gastrointestinal (Abdomen): Percussion/Palpation: abdomen soft Musculoskeletal: Patient does have some mild weakness in the right upper extremity that she reports is part of her baseline.Patient is moving bilateral lower extremities and left upper extremity without any weakness. Neurologic: CN's II-XI intact bilaterally and moves all extremities Speech / Cognition: normal speech Psychiatric: Orientation: alert and oriented x 3 Speech: normal rate/rhythm/volume of speech Results & Data Vital Signs (Past 12 Hours) Vital Signs Temp Pulse Resp BP BP BP BP 09/09/19 12:00 78 20 09/09/19 11:30 74 23 09/09/19 11:00 70 14 09/09/19 10:45 75 19 09/09/19 10:30 66 13 09/09/19 10:15 68 15 09/09/19 10:03 143/62 H 198/59 H 202/55 H 09/09/19 09:30 64 16 09/09/19 09:00 65 13 09/09/19 08:45 64 13 09/09/19 08:30 69 17 200/58 H 09/09/19 08:00 71 20 09/09/19 07:00 36.7 C 64 12 127/61 09/09/19 06:43 75 09/09/19 06:00 67 19 09/09/19 05:45 63 14 09/09/19 05:30 61 11 L 09/09/19 05:15 67 12 09/09/19 05:00 64 15 09/09/19 04:45 70 21 09/09/19 04:30 09/09/19 04:15 65 20 09/09/19 04:00 36.7 C 71 12 09/09/19 03:45 64 12 09/09/19 03:30 61 14 09/09/19 03:15 64 15 09/09/19 03:00 63 13 09/09/19 02:45 62 19 09/09/19 02:30 64 16 09/09/19 02:15 60 11 L 09/09/19 02:00 62 13 09/09/19 01:45 62 14 09/09/19 01:30 65 16 09/09/19 01:15 67 13 09/09/19 01:00 64 13 Pulse Ox 09/09/19 12:00 93 09/09/19 11:30 90 09/09/19 11:00 89 L 09/09/19 10:45 91 09/09/19 10:30 93 09/09/19 10:15 93 09/09/19 10:03 09/09/19 09:30 93 09/09/19 09:00 92 09/09/19 08:45 92 09/09/19 08:30 93 09/09/19 08:00 92 09/09/19 07:00 93 09/09/19 06:43 09/09/19 06:00 92 09/09/19 05:45 94 09/09/19 05:30 93 09/09/19 05:15 92 09/09/19 05:00 92 09/09/19 04:45 93 09/09/19 04:30 91 09/09/19 04:15 93 09/09/19 04:00 92 09/09/19 03:45 93 09/09/19 03:30 92 09/09/19 03:15 94 09/09/19 03:00 92 09/09/19 02:45 93 09/09/19 02:30 92 09/09/19 02:15 93 09/09/19 02:00 92 09/09/19 01:45 92 09/09/19 01:30 94 09/09/19 01:15 92 09/09/19 01:00 94
[2019-09-09] MEDS ORDERED: BUMETANIDE 1 MG in SYRINGE 0 ML IV ONE (15:45)
--- NOTE | 2019-09-09 16:14 | XRay Report ---
XR chest 1V portable CLINICAL HISTORY: 64 years-old Female presenting with Lungs sounds coarse; decrease in O2 saturation . TECHNIQUE: Portable upright AP view of the chest was obtained. COMPARISON: 08/30/2019. FINDINGS: Atherosclerosis of the aortic arch. Cardiac silhouette enlarged. Pulmonary vascular prominence. Inter lobular septal thickening. Bronchial wall thickening. Perihilar and basilar predominant opacities gre ater on the left. Left pleural effusion suspected. No pneumothorax. Osteopenia may be present. Degene rative changes of the thoracic spine. Upper abdomen normal. IMPRESSION: 1. Cardiomegaly with volume overload, congestive change, and suspected moderate pulmonary edema asym metrically worse on the left. 2. Due to asymmetry, underlying infection is difficult to exclude. Asymmetry may alternatively relat e to an underlying left pleural effusion. Electronically signed by: Henry Kolb M.D. 09/09/2019 4:12 PM
[2019-09-09] MEDS: LORazepam 0.5 MG TAB PO PRN ×2 (17:22→23:08)
[2019-09-09] MEDS: ATORVASTATIN 40 MG TAB PO SCH (20:16)
[2019-09-09] MEDS: FOLIC ACID 1 MG TAB PO SCH (20:20)
[2019-09-09] MEDS: VITAMIN B COMPLEX TAB PO SCH (20:21)
[2019-09-09] MEDS: HYDROCODONE/ACETAMINOPHEN 10/325 TAB PO PRN (21:46)
[2019-09-10] MEDS: HYDROCODONE/ACETAMINOPHEN 10/325 TAB PO PRN (01:37)
[2019-09-10 03:45] VITALS: TEMP 97.7
[2019-09-10 04:53] LABS: Basophils # (auto) 0.03 K/uL (0-0.2); Basophils % (auto) 0.3 %; Eosinophils # (auto) 0.03 K/uL (0-0.5); Eosinophils % (auto) 0.3 %; Hematocrit (blood only) 36.2 % (37-47); Hemoglobin 11.9 g/dL (12.0-16.0); Immature Granulocytes # (auto) 0.03 K/uL (0.00-0.02); Immature Granulocytes % (auto) 0.3 %; Mean Corpuscular Hemoglobin 30.9 pg (25-34); Mean Corpuscular Hgb Conc 32.9 g/dL (32-36); Mean Platelet Volume 11.2 fL (7.4-10.4); Neutrophils # (auto) 6.81 K/uL (1.4-6.5); Neutrophils % (auto) 68.1 %; Platelet Count 179 K/uL (130-400); RDW Coefficient of Variation 14.8 % (11.5-14.5); RDW Standard Deviation 50.2 fL (36.4-46.3); Red Blood Count 3.85 M/uL (4.2-5.4)
[2019-09-10 05:13] LABS: BUN Creatinine Ratio 10.5 (10-20); Calcium 8.1 mg/dl (8.5-10.1); Est GFR (African American) 66.5; Est GFR (Non-African American) 57.4; Magnesium 1.9 mg/dl (1.8-2.4); Potassium 3.5 mmol/L (3.5-5.1)
[2019-09-10] MEDS: CLOPIDOGREL BISULFATE 75 MG TAB PO SCH (06:24)
[2019-09-10] MEDS: ASPIRIN 81 MG ECTAB PO SCH (06:24)
[2019-09-10] MEDS: VERAPAMIL HCL 120 MG TABCR PO SCH (06:24)
[2019-09-10 06:26] VITALS: BP 161/51; O2SAT 92
--- NOTE | 2019-09-10 07:43 | Critical Care Progress Note ---
Date of Service September 10, 2019 Assessment & Plan (1) Admitted to intensive care unit: Reason critically ill: 64yo female with PMHx significant for left internal carotid stenosis, peripheral vascular disease, CAD s/p stent placement in 2017, CKD Stage III with renal artery stenosis s/p stent placement in right renal artery, patent foramen ovale and HTN who is being monitored in the ICU after undergoing a L carotid endarterectomy. Stable for discharge. Neuro: -pain meds per primary team for headache and other pain -q4 neuro checks -Hx of migraines- continue home meds per primary team -headache currently resolved. CV Hx of left internal carotid stenosis, PVD, CAD s/p stent placement in 2017, PFO and HTN Internal carotid artery stenosis -Neck MRA from May- 75% stenosis in left IC, more recent outside records with progressive stenosis -s/p L carotid endarterectomy done on 09/08 -continue to monitor for post-op complications (hematoma, SOB, signs of infection etc) -continue aspirin, Plavix and statin administration -surgical lesion intact, no concerns, stable for discharge. HTN -Currently hypertensive; management per primary team -D/C nitroglycerin drip, d/c prn labetatol ordered for SBP limit per primary team, d/c nicardipine. -Continue lisinopril, bystolic, hydralizine per primary team CAD -s/p diluting stent placement in L circumflex in 2016 -continue aspirin, plavix and statin PVD -continue statin administration Pulmonary -some flash pulm edema 09/08 per chest xray -Bumex treatment per primary team. Renal/ -Hx of CKD, renal artery stenosis with right stent placement -Currently at baseline Cr -will continue to monitor postop GI -diet ordered per primary team -Zofran for nausea with phenergan also ordered per primary team Endocrine -ICU protocol for hyperglycemia Lines: PIV DVT prophylaxis: SCDs CODE Status: Dispo: ICU for postop monitoring, stable for downgrade Supervising Physician Co-Signing Physician Notes Dr. Pearce was the resident-physician during care of patient. I separately evaluated patient for mcgill portions of the history and the exam. I was present during the critical portion of medical decision making, and I discussed the case with the resident. I generally agree with the findings and plan except for any additions/exceptions noted. Patient is doing much better today. She was ambulating about the hallways. She is off nicardipine. She had a little bit of pulmonary edema on chest x-ray yesterday and received Bumex per Dr. Ruffin. Dr. Ruffin put in for discharge orders paperwork today. She is very eager to go home. Follow-up with vascular and primary care. Subjective Pt was up and walking around the floor this AM. States her migraine broke, and since then she has been able to eat. Currently denies headache, blurry vision, runny nose, sore throat, cough, shoulder pain, N/V, abd pain, diarrhea or constipation. Has not had a bowel movement since surgery but she states that is typical for her. Review of Systems Review of Systems: All systems reviewed & are unremarkable except as noted in HPI & below Physical Exam Physical Exam: General: Alert, orientedx3. Walking around this AM. Skin: Closed surgical incision on left neck with redness but no drainage noted. Psych: Appropriate mood and affect Neuro: No gross deficits, CN II-XII grossly intact currently. HEENT: NC/AT Chest: Nontender to palpation. CV: RRR, Normal s1, s2. Blowing murmur appreciated. Resp: Breath sounds clear but decreased on back. Abdomen: Soft, nontender, nondistended. No guarding. No organomegaly appreciated. Extremities: No edema in lower extremities bilaterally. MSK: able to move all extremities appropriately, strength appropriate bilaterally. Results & Data Vital Signs (Past 12 Hours) Vital Signs Temp Pulse Pulse Resp BP BP Pulse Ox 09/10/19 06:26 70 17 161/51 H 92 09/10/19 06:00 66 15 93 09/10/19 05:00 67 16 93 09/10/19 04:00 74 12 148/41 H 90 09/10/19 03:45 36.5 C 09/10/19 03:29 167/42 H 09/10/19 03:00 64 16 153/38 H 92 09/10/19 02:00 70 16 177/77 H 179/47 H 91 09/10/19 01:00 67 12 126/33 L 90 09/10/19 00:00 75 15 151/42 H 94 09/09/19 23:42 66 09/09/19 23:00 36.8 C 72 12 183/67 H 136/35 L 92 10/24/19 22:30 67 15 92 09/09/19 22:00 60 13 93 09/09/19 21:45 76 17 96 09/09/19 21:30 69 17 97 09/09/19 21:15 64 15 96 09/09/19 21:00 76 20 96 09/09/19 20:45 65 14 96 09/09/19 20:00 70 17 95 PG Care Time/CCT Total # of Minutes Spent Total Time Spent with Patient: Total time spent is greater than 50% in coordination of care (as documented) at patient's floor/unit and/or counseling p atient: Resident Activity Tracking Resident Involvement: Resident Care Provided Care Provided: Adult Hospital Medicine
[2019-09-10] MEDS: FUROSEMIDE 20 MG TAB PO SCH (07:48)
[2019-09-10] MEDS: LISINOPRIL 40 MG TAB PO SCH (07:48)
[2019-09-10] MEDS: TOPIRAMATE 50 MG TAB PO SCH (07:48)
[2019-09-10] MEDS: NEBIVOLOL HCL 5 MG TAB PO SCH (07:48)
[2019-09-10] MEDS: HydrALAZINE TAB 50 MG TAB PO SCH (07:49)
--- NOTE | 2019-09-10 07:49 | Surgery Progress Note ---
Date of Service September 10, 2019 Assessment & Plan (1) Internal carotid artery stenosis: Off her drips since last pm. Doing well today. Wanting to go home D/C to home today. Subjective Patient feeling better. Walking around the unit without problems. Physical Exam Constitutional: WD/WN, vitals as above ENMT: Mouth: no tongue abnormality Neck: trachea midline Skin: + wound (dry and clean. Slight edema) Neurologic: CN's II-XI intact bilaterally and moves all extremities; no focal motor deficits tongue midline Results & Data Vital Signs (Past 12 Hours) Vital Signs Temp Pulse Pulse Resp BP BP Pulse Ox 09/10/19 06:26 70 17 161/51 H 92 09/10/19 06:00 66 15 93 09/10/19 05:00 67 16 93 09/10/19 04:00 74 12 148/41 H 90 09/10/19 03:45 36.5 C 09/10/19 03:29 167/42 H 09/10/19 03:00 64 16 153/38 H 92 09/10/19 02:00 70 16 177/77 H 179/47 H 91 09/10/19 01:00 67 12 126/33 L 90 09/10/19 00:00 75 15 151/42 H 94 09/09/19 23:42 66 09/09/19 23:00 36.8 C 72 12 183/67 H 136/35 L 92 09/09/19 22:30 67 15 92 09/09/19 22:00 60 13 93 09/09/19 21:45 76 17 96 09/09/19 21:30 69 17 97 09/09/19 21:15 64 15 96 09/09/19 21:00 76 20 96 09/09/19 20:45 65 14 96 09/09/19 20:00 70 17 95
[2019-09-10 08:52] VITALS: PULSE 75
[2019-09-12] MEDS ORDERED: ERGOCALCIFEROL 50,000 UNITS CAP PO SCH (09:00)
--- NOTE | 2019-09-14 11:16 | Discharge Summary ---
Date of Service September 14, 2019 Admission HPI Per Admitting Provider Ms. Interiano is a pleasant 64-year-old woman with an extensive history of peripheral vascular disease whom we are seeing today for discussion regarding her bilateral carotid artery stenosis. She was last seen in our clinic in early June following completion of an MRA of her carotid arteries. This demonstrated high-grade stenosis of approximately 90% on the left side. At that time, we discussed intervention for this. However, she elected to wait to sort out some personal matters following the of her mother. Since we saw her, she reports no symptoms concerning for TIA including unilateral weakness, num bness, or paralysis, word-finding difficulty, facial droop, or signs of amaurosis fugax. She states this time she is ready to proceed with the operation and would like it scheduled in late August. She plans on seeing her ride operator in the next week to obtain cardiac clearance. Pt admitted for L CEA. Admission Exam Per Admitting Provider Physical Exam: On examination today, she appears well, in no acute distress. She is afebrile. She has a blood pressure 162/64 with a heart rate of 53, and saturating 98% on room air. She has 2+ carotid pulses bilaterally. She has no evidence of focal neuro deficits. Remainder exam is unconcerning. Trachea is midline. Lungs are clear. Cor has a RRR. Abdominal exam is benign. Femoral pulses are +2. Principal Diagnosis 1. s/p L CEA 2. LICAS Discharge Exam Constitutional WD/WN, vitals as above well developed and well nourished Eyes PERRL, conjunctivae normal, anicteric sclerae normal visual fernández by confrontation and PERRL ENMT Mouth: no tongue abnormality Neck trachea midline, no thyromegaly trachea midline Respiratory normal respiratory effort, lungs clear to auscultation Cardiovascular RRR, no murmur, no edema Gastrointestinal (Abdomen) Percussion/Palpation: abdomen soft Skin + wound (dry and clean. Slight edema) Neurologic CN's II-XI intact bilaterally and moves all extremities; no focal motor deficits Speech / Cognition: normal speech Psychiatric Orientation: alert and oriented x 3 Speech: normal rate/rhythm/volume of speech Discharge Data Allergies Allergy/AdvReac Type Severity Reaction Status Date / Time amoxicillin [From Amoxil] Allergy Unknown Unknown Verified 09/08/19 10:59 bupropion Allergy Unknown Unknown Verified 09/08/19 10:59 carbamazepine Allergy Unknown Unknown Verified 09/08/19 10:59 codeine Allergy Unknown Muscle Verified 09/08/19 10:59 "tightening" hydrochlorothiazide Allergy Unknown Unknown Verified 09/08/19 10:59 metronidazole [From Flagyl] Allergy Unknown Unkown Verified 09/08/19 10:59 Penicillins Allergy Unknown Ampicillin- Verified 09/08/19 10:59 Unknown reaction sertraline Allergy Unknown Unknown Verified 09/08/19 10:59 reaction Sulfa (Sulfonamide Allergy Unknown Hives Verified 09/08/19 10:59 Antibiotics) venlafaxine Allergy Unknown Unknown Verified 09/08/19 10:59 lithium AdvReac Severe Vomiting Verified 09/08/19 10:59 (severe) chocolate flavor AdvReac Mild Migraines Verified 09/08/19 10:59 tetracycline AdvReac Unknown Hallucinati Verified 09/08/19 10:59 on Pork AdvReac Intermediate Vomiting Uncoded 09/08/19 10:59 Consultations 09/08/19 16:57 Consult Animal Care Service Worker Routine Procedures Performed Operation Date: 09/08/19 12:10 Actual Procedures p Left Carotid Endarterectomy with Patch Angioplasty(Left) - Giancarlo Ruffin MD Hospital Course (1) Internal carotid artery stenosis: Off her drips since last pm. Doing well today. Wanting to go home D/C to home. Total Time Total Time Spent Total Time Spent (In Minutes): 15 minutes Total Time Includes: Examination of the Patient, Discharge Planning and Medication Reconciliation Discharge Plan Discharge Items Patient Disposition: Home - Self-Care Reason For Visit: Left Carotid Stenosis Discharge Diagnosis: Left carotid stenosis, left carotid endarterectomy Activity: Per Instructions section Lifting: Gradually increase as tolerated Bathing Comment: may shower Driving/Machine Use: Resume 1 day after discharge Non-emergency contact: Surgeon Call non-emergency contact if: you have any medication questions, your symptoms worsen, your pain is not controlled, your pain is worsening, your pain is unusual for you, your pain is concerning for you, your temperature is above 101.5, your wound has increased redness, your wound has increased drainage and your wound pain has increased Follow-up/Referrals: Juan C Espinosa MD [Primary Care Provider] - Diet: Heart Healthy Addtl Attending Provider Instructions: SPECIAL CARE INSTRUCTIONS: Medications: * Continue to take Aspirin as directed. Incision Care: * You may shower, but do not rub incision. You may let the warm soapy water run over it. Be sure to dry the incision well after bathing. * Do not shave directly over the incision until it is healed. * DO NOT IMMERSE THE INCISION IN A TUB/POOL/etc. UNTIL HEALED. Restrictions: * Do not drive for at least one week or if you are still taking any narcotic pain medication. * Do not lift anything heavier than a gallon of milk for one week after going home. Possible Complications: * Numbness - It is normal to have some numbness around the incision. Numbness can extend beyond the incision to areas of the neck, ear and face. The numbness is due to bruising of nerves during the surgery and will gradually improve over a period of months. * Hoarseness/Difficulty Speaking and Swallowing - The bruising of nerves in the neck can also cause a hoarse voice, difficulty speaking or swallowing. This may improve over time, HOWEVER, if it continues for more than a few days please contact our office ([phone]). * Excessive Swelling - There will be some swelling immediately after surgery which usually resolves within one week. If you notice that the swelling is getting worse, notify your surgeon ([phone]). * Drainage/Bleeding - If there is any drainage or bleeding, it should be a very small amount (less than a teaspoon per day). If you have excessive bleeding or drainage from the incision, call your surgeon ([phone]) right away. ACTIVATION OF EMERGENCY MEDICAL SYSTEM: Call 911, immediately, if you experience any of the following: Warning Signs and Symptoms of Stroke: * Sudden numbness or weakness of the face, arm or leg, especially on one side of the body * Sudden confusion, trouble speaking or understanding * Sudden trouble seeing in one or both eyes * Sudden trouble walking, dizziness, loss of balance or coordination * Sudden severe headache with no cause Do not delay calling 911 if you experience any warning signs or symptoms of a stroke. Delay in seeking medical attention may affect what treatments can be given to you. Risk Factors for Stroke: You can reduce your chances of stroke by working with your medical provider to adopt a healthy lifestyle. Some specific ways to lower your chance of stroke are: * If you are a smoker, now is the time to stop smoking cigarettes * If you are diabetic, improve the control of your blood sugars * Avoid excessive amounts of alcohol * Control high blood pressure * Lose weight if you are overweight * Be sure to lead an active lifestyle * Eat a healthy diet low in salt, cholesterol and fat You should know about other risk factors for stroke that you are unable to control. These include: * Age 55 years or older * Male gender * Certain racial groups: , or / * Family History of Stroke, Mini stroke or Heart Attack * Sickle Cell Disease You will be receiving a call from the Vascular Surgery Nurse after you are discharged. FOLLOW UP VISIT: It is important for you to keep your follow up appointments with your medical provider. Keep any scheduled doctor appointments. Call [phone] to schedule a follow up appointment if one not already scheduled. Pending Studies at Discharge: No Stand-Alone Forms: My [facility] [employer], Smoking Cessation Medications and DC Order Prescriptions: Continued hydralazine 100 mg tablet 100 mg PO TID Qty: 90 RF: 6 lorazepam 0.5 mg tablet 0.5 mg PO BID PRN (Reason: Anxiety) Qty: 60 RF: 1 Bystolic 20 mg tablet 20 mg PO QAM Qty: 90 RF: 3 promethazine 25 mg tablet 25 mg PO BID PRN (Reason: Nausea And Vomiting) Qty: 60 RF: 0 Aimovig Autoinjector 140 mg/mL auto-injector 140 mg SQ MONTHLY RF: 0 atorvastatin 40 mg Tablet 40 mg PO PM RF: 0 tizanidine 2 mg Tablet 2 mg PO TID PRN (Reason: Muscle Spasm) RF: 0 clopidogrel [Plavix] 75 mg Tablet 75 mg PO QAM RF: 0 aspirin 81 mg Tablet,Delayed Release (Dr/Ec) 81 mg PO QAM RF: 0 hydrocodone-acetaminophen [Iroquois] 7.5-325 mg Tablet 1 tab PO BID PRN (Reason: Pain) RF: 0 vitamin B complex Tablet 1 tab PO QPM RF: 0 folic acid 1 mg Tablet 1 mg PO QPM RF: 0 furosemide 20 mg Tablet 20 mg PO QAM RF: 0 ergocalciferol (vitamin D2) 50,000 unit Capsule 50,000 unit PO WK RF: 0 lisinopril 40 mg Tablet 40 mg PO QAM RF: 0 verapamil 120 mg capsule,ext rel. pellets 24 hr 120 mg PO BID RF: 0 topiramate [Topamax] 50 mg Tablet 50 mg PO BID RF: 0 Discharge Orders: Discharge Order (Routine); Ordered 09/10/19 Ordered By: Giancarlo Ruffin Admission Data Admit Date/Time: 09/08/19 12:34 Attending Provider: Giancarlo Ruffin Admit Provider: Giancarlo Ruffin Primary Care Provider: Juan C Espinosa Other Providers: Cristi Swanson ; Eleazar Rosales ; Satish Interiano ; Guillaume Rao ; Amando Olguin ; Matt Valladares ; Vivian Mariano ; Az Bee ; Mary Mccauley ; Pj Cosme ; Parviz Huang ; Bonilla Aponte ; Jeronimo Phan ; Ron Vaughn. Other Interventions: Discharge Summary Assessment (RN) Last Done: 09/10/19 07:56 DC Date/Time DO NOT enter until pt leaves facility: 09/10/19 08:56
== END 2019-09-10 08:56 | disposition home or self-care (01) | DRG 39 ==
LOC: ASU 10:35 → 1E 12:34